=== PATIENT | female | born 1940 | race Caucasian/White ===

== ENCOUNTER → 2018-06-16 09:51 | Outpatient (CLI) | payer MEDICARE, SELFPAY ==
[2018-06-16 12:55] LABS: ALB/GLOB Ratio 1.3 RATIO (0.9-2.4); AST(SGOT) 26 U/L (15-37); Alanine Aminotransfer ALT/SGPT 37 U/L (13-56); Albumin, Serum 3.8 g/dL (3.2-5.0); Alkaline Phosphatase 86 U/L (45-117); Anion Gap 9 (5-15); BUN 13 mg/dL (7-18); BUN/Creat Ratio 14.2 RATIO (10-20); Calcium,Total 9.6 mg/dL (8.5-10.1); Chloride 97 mmol/L (98-107); Cholesterol 203 mg/dL (200); Creatinine, Serum 0.91 mg/dL (0.55-1.02); EST Glomerular Filtration Rate 63 mL/min (>60); Est Glom Filt Rate - Afr Amer 76 mL/min (>60); Glucose 137 mg/dL (74-106); High Density Lipoprotein 47 mg/dL; Protein, Total 6.8 g/dL (6.4-8.2); Sodium Level 137 mmol/L (136-145); Thyroid Stim Hormone (TSH) 1.74 uIU/mL (0.358-3.74); Triglycerides 212 mg/dL; Very Low Density Lipoprotein 42 mg/dL (5-40)
[2018-06-16 14:14] LABS: Microalbumin:Creatinine Ratio 6.8 mg/g CRE (<30 mg/g CRE)
== END ==
PROVIDERS: Family Provider Family Medicine; PCP Family Medicine; Visit Provider Family Medicine
DX: E11.22 Type 2 diabetes mellitus with diabetic chronic kidney disease (principal); N18.2 Chronic kidney disease, stage 2 (mild)
CPT/HCPCS: 36415; 80053; 80061; 82043; 82570; 84443

== ENCOUNTER → 2018-09-18 07:41 | Outpatient (CLI) | payer MEDICARE, SELFPAY ==
[2018-09-18 10:15] LABS: Erythrocyte Sedimentation Rate 8 mm/hr (0-30)
[2018-09-18 10:18] LABS: Absolute Lymphocyte Count 2.06 X10^3/ul (0.83-4.51); Absolute Neutrophil Count 5.4 X10^3/uL (2.0-7.7); Basophil# 0.03 X10^3/uL; Basophil% 0.4 % (0-1); Eosinophils% 2.5 % (0-5); Hematocrit 43.1 % (37-47); Hemoglobin 13.9 g/dl (12.0-15.0); Lymphocyte # 2.06 X10^3/ul (4.0); Lymphocyte % 25.3 % (19-41); Mean Corp Hgb Conc 32.3 g/gl (32-36); Mean Corpuscular Hgb 29.6 pg (27.0-32.0); Mean Corpuscular Volume 91.7 fL (81-99); Mean Platelet Vol. 11.5 fl (6.2-12.0); Monocyte# 0.45 X10^3/uL; Monocyte% 5.5 % (0-10); Neutrophil # 5.36 X10^3/uL (2.7-7.7); Neutrophil % 65.8 % (47-70); POSITIVE COUNT NO; POSITIVE DIFFERENTIAL NO; POSITIVE MORPHOLOGY NO; Platelet Count 197 K/mm3 (150-450); RBC Distribution Width SD 46.8 fl (35.1-43.9); White Blood Count 8.1 K/mm3 (4.4-11.0)
[2018-09-18 10:43] LABS: Vitamin D,25 Hydroxy 35.1 ng/mL (29.95-100.01)
[2018-09-18 10:46] LABS: PTHIN 37.2 pg/mL (18.4-80.1)
[2018-09-18 11:22] LABS: AST(SGOT) 23 U/L (15-37); Alanine Aminotransfer ALT/SGPT 34 U/L (13-56); Albumin, Serum 3.6 g/dL (3.2-5.0); Alkaline Phosphatase 76 U/L (45-117); Anion Gap 11 (5-15); BUN 14 mg/dL (7-18); BUN/Creat Ratio 15.1 RATIO (10-20); Calcium,Total 9.1 mg/dL (8.5-10.1); Chloride 99 mmol/L (98-107); Creatinine, Serum 0.93 mg/dL (0.55-1.02); EST Glomerular Filtration Rate 62 mL/min (>60); Est Glom Filt Rate - Afr Amer 75 mL/min (>60); Ferritin 34 ng/mL (8-252); Globulin 3.7 g/dL (2.2-4.2); Glucose 158 mg/dL (74-106); Potassium 3.9 mmol/L (3.5-5.1); Protein, Total 7.3 g/dL (6.4-8.2); Sodium Level 139 mmol/L (136-145); Thyroid Stim Hormone (TSH) 3.04 uIU/mL (0.358-3.74)
[2018-09-21 09:06] LABS: Vitamin B12 1996 pg/mL (211-911)
[2018-09-21 14:18] LABS: ANTINUCLEAR ANTIBODIES DIRECT Negative (Negative)
== END ==
PROVIDERS: Family Provider Family Medicine; PCP Family Medicine; Referring Provider Family Medicine; Visit Provider Family Medicine
DX: M79.10 Myalgia, unspecified site (principal)
CPT/HCPCS: 36415; 80053; 82306; 82607; 82728; 82746; 83970; 84443; 85025; 85652; 86038; 86140

== ENCOUNTER → 2018-10-01 10:08 | Outpatient (CLI) | payer MEDICARE, SELFPAY ==
[2016-09-28 13:27] VITALS: BMI 48.4
--- NOTE | 2018-10-01 10:14 | BI_ITS ---
MAMMOGRAPHY - BILATERAL SCREENING REASON FOR EXAM: Female, 78 years old. Routine annual screening examination. PERTINENT HISTORY: Non-contributory. TECHNIQUE: Digital bilateral breast khalida (3D mammographic acquisition) in the CC and MLO projections. 2-D mediolateral oblique (MLO) and craniocaudad (CC) views of both breasts were obtained. CAD: Full Field Digital Mammography with Computer Added Detection was performed. COMPARISON: Comparison is made with prior study dated October 13, 2008. FINDINGS: Breast Composition: The breasts are almost entirely fatty. There are no dominant masses or suspicious calcifications. Stable benign-appearing right axillary lymph node. No other significant abnormalities are identified. There has been no significant change since the prior study. BI/SCREENING MAMM (CAD), BILAT IMPRESSION: Stable bilateral screening mammogram. Yearly follow-up mammogram recommended. (A) ASSESSMENT CATEGORY: BIRADS Category 2: Benign. A letter regarding these results will be sent to the patient by the facility within 30 days. Approximately 10% of breast cancers are not detected by mammography. A normal mammogram should not delay biopsy of a clinically suspicious abnormality. [id number] Electronically Signed: Jc Koehler MD at 12:33 EST , Service support ,
== END ==
PROVIDERS: Family Provider Family Medicine; PCP Family Medicine; Referring Provider Family Medicine; Visit Provider Family Medicine
DX: Z12.31 Encounter for screening mammogram for malignant neoplasm of breast (principal)
CPT/HCPCS: 77063; 77067

== ENCOUNTER → 2019-03-17 09:44 | Outpatient (CLI) | payer MEDICARE, SELFPAY ==
[2016-09-28 13:27] VITALS: BMI 48.4
[2019-03-17 12:57] LABS: ALB/GLOB Ratio 1.2 RATIO (0.9-2.4); AST(SGOT) 30 U/L (15-37); Alanine Aminotransfer ALT/SGPT 33 U/L (13-56); Albumin, Serum 4.1 g/dL (3.2-5.0); Alkaline Phosphatase 76 U/L (45-117); Anion Gap 7 (5-15); BUN 16 mg/dL (7-18); BUN/Creat Ratio 16.1 RATIO (10-20); Calcium,Total 9.9 mg/dL (8.5-10.1); Chloride 99 mmol/L (98-107); EST Glomerular Filtration Rate 57 mL/min (>60); Est Glom Filt Rate - Afr Amer 69 mL/min (>60); Globulin 3.4 g/dL (2.2-4.2); Glucose 139 mg/dL (74-106); Protein, Total 7.5 g/dL (6.4-8.2); Sodium Level 135 mmol/L (136-145)
[2019-03-17 13:06] LABS: Vitamin B12 > 2000 pg/mL (211-911)
== END ==
PROVIDERS: Family Provider Family Medicine; PCP Family Medicine; Referring Provider Family Medicine; Visit Provider Nurse Practitioner Family
DX: I10 Essential (primary) hypertension (principal); R74.8 Abnormal levels of other serum enzymes; E55.9 Vitamin D deficiency, unspecified
CPT/HCPCS: 36415; 80053; 82607; 82652

== ENCOUNTER → 2019-07-12 11:35 | Outpatient (CLI) | payer MEDICARE, SELFPAY ==
[2016-09-28 13:27] VITALS: BMI 48.4
--- NOTE | 2019-07-12 11:41 | RAD_ITS ---
STUDY: X-RAY - LUMBAR SPINE REASON FOR EXAM: Female, 78 years old. Pain. TECHNIQUE: 5 view(s) of the lumbar spine were obtained. COMPARISON: None FINDINGS: Normal lumbar lordosis. There is no substantial scoliosis. There is diffuse demineralization with multi-level endplate spondylosis. There is multi-level degenerative disc disease with multi-level disc space narrowing. There is no demonstrated fracture. There is sacroiliac sclerosis. There is atherosclerotic calcification of the abdominal aorta without a demonstrated aneurysm. RAD/L/S Spine Min 4 Views IMPRESSION: Degenerative changes of the spine, as detailed above. Electronically Signed: Deon Vargas MD at 9:43 EST , Service support ,
== END ==
PROVIDERS: Family Provider Family Medicine; PCP Family Medicine; Referring Provider Family Medicine; Visit Provider Family Medicine
DX: M54.5 Low back pain (principal)
CPT/HCPCS: 72110

== ENCOUNTER → 2019-09-17 09:13 | Outpatient (CLI) | payer MEDICARE, SELFPAY ==
[2016-09-28 13:27] VITALS: BMI 48.4
[2019-09-17 12:42] LABS: Absolute Lymphocyte Count 1.48 X10^3/uL (0.83-4.51); Absolute Neutrophil Count 8.3 X10^3/uL (2.0-7.7); Basophil# 0.02 X10^3/uL; Basophil% 0.2 % (0-1); Eosinophil# 0.15 X10^3/uL; Eosinophils% 1.4 % (0-5); Hematocrit 40.4 % (37-47); Hemoglobin 13.4 g/dL (12.0-15.0); Lymphocyte # 1.48 X10^3/ul (4.0); Mean Corp Hgb Conc 33.2 g/dL (32-36); Mean Corpuscular Hgb 29.7 pg (27.0-32.0); Mean Corpuscular Volume 89.6 fL (81-99); Mean Platelet Vol. 9.9 fl (6.2-12.0); Monocyte# 0.59 X10^3/uL; Monocyte% 5.6 % (0-10); NRBC Flagged by Analyzer 0 % (0-5); Neutrophil # 8.27 X10^3/uL (2.7-7.7); Neutrophil % 78.3 % (47-70); Platelet Count 229 K/mm3 (150-450); RBC Distribution Width CV 13.3 % (11.6-14.6); RBC Distribution Width SD 43.7 fl (35.1-43.9); Red Blood Count 4.51 M/mm3 (4.2-5.4); White Blood Count 10.6 K/mm3 (4.4-11.0)
[2019-09-17 13:10] LABS: AST(SGOT) 29 U/L (15-37); Alanine Aminotransfer ALT/SGPT 56 U/L (13-56); Albumin, Serum 3.4 g/dL (3.2-5.0); Alkaline Phosphatase 103 U/L (45-117); Anion Gap 6 (5-15); BUN 13 mg/dL (7-18); BUN/Creat Ratio 16.3 RATIO (10-20); Calcium,Total 9.8 mg/dL (8.5-10.1); Chloride 96 mmol/L (98-107); EST Glomerular Filtration Rate 74 mL/min (>60); Est Glom Filt Rate - Afr Amer 89 mL/min (>60); Globulin 3.3 g/dL (2.2-4.2); Glucose 120 mg/dL (74-106); Potassium 3.8 mmol/L (3.5-5.1); Protein, Total 6.7 g/dL (6.4-8.2); Sodium Level 132 mmol/L (136-145); Thyroid Stim Hormone (TSH) 2.14 uIU/mL (0.358-3.74)
== END ==
PROVIDERS: PCP Family Medicine; Referring Provider Family Medicine; Visit Provider Family Medicine
DX: E11.22 Type 2 diabetes mellitus with diabetic chronic kidney disease (principal); N18.9 Chronic kidney disease, unspecified; M54.5 Low back pain
CPT/HCPCS: 80053; 84443; 85025

== ENCOUNTER → 2019-10-06 16:07 | Outpatient (CLI) | payer MEDICARE, SELFPAY ==
--- NOTE | 2019-10-06 16:10 | MRI_ITS ---
ACR Level 3 findings have been noted. An addendum which confirms receipt of the report will follow. STUDY: MRI LUMBAR SPINE WITHOUT CONTRAST REASON FOR EXAM: Female, 79 years old. pain low back and bilat legs, RECENT FALLS TECHNIQUE: Standardized fat and water weighted pulse sequences were obtained in the sagittal and axial planes. COMPARISON: X-ray dated July 12, 2019 FINDINGS: Lumbar lordosis fairly well maintained. No significant scoliosis. Conus medullaris terminates normally at the L1 level. Severe endplate spondylosis predominating at the L3-4 and L4-5 levels with fluid signal at the L4-5 disc space (sagittal image 7 series 4). Vertebral body height loss at the L3, L4 and L5 levels. Additional mild/moderate multilevel endplate spondylosis. No dislocation. Paraspinal muscle atrophy. Normal aorta. Sacrum intact. Normal retroperitoneum. T12-L1: Shallow disc bulge. Facet joint arthrosis. Normal central canal and bilateral lateral recesses. Normal bilateral intervertebral neural foramina. L1-2: Shallow disc bulge. Facet joint arthrosis. Normal central canal and bilateral lateral recesses. Neural foraminal narrowing without impingement. L2-3: Disc bulge with severe central canal narrowing. Facet joint arthrosis. Bilateral lateral recess narrowing with impingement. Bilateral neural foraminal narrowing with impingement. L3-4: Disc bulge with severe central canal narrowing. Facet joint arthrosis. Bilateral lateral recess narrowing with impingement. Bilateral neural foraminal narrowing with impingement, right greater than left. L4-5: Disc bulge with moderate/severe central canal narrowing. Facet joint arthrosis. Bilateral lateral recess narrowing with impingement. Neural foraminal narrowing with contact of the exiting L4 nerve roots, left greater than right. L5-S1: Shallow disc bulge. Facet joint arthrosis. Normal central canal and bilateral lateral recesses. Neural foraminal narrowing with early contact of the exiting L5 nerve roots. MRI/Spine Lumbar (Routine) IMPRESSION: Age-indeterminate vertebral body height loss at the L3-L5 levels with marrow signal at the L3 inferior endplate, L4 vertebral body and L5 superior endplate compression (potential acute/subacute fractures given clinical history) Severe endplate spondylosis predominating at the L2-3, L3-4 and L4-5 levels with fluid at the L4-5 disc space (exclude infection clinically) Severe multilevel intervertebral disc disease with canal narrowing predominantly at L2-3, L3-4 and L4-5 Extensive multilevel neural foraminal and lateral recess narrowing with impingement, as above Electronically Signed: Yonis Vega DO at 13:57 EST Tel , Service support ,
== END ==
PROVIDERS: PCP Family Medicine; Referring Provider Anesthesiology Pain Medicine; Visit Provider Anesthesiology Pain Medicine
DX: M54.9 Dorsalgia, unspecified (principal); M79.605 Pain in left leg
CPT/HCPCS: 72148

== ENCOUNTER 2019-10-09 08:16 | Observation (INO) | payer MEDICARE, SELFPAY ==
[2019-10-09 08:19] VITALS: BP 186/59; PULSE 66; RESP 18; TEMP 36.4; O2SAT 98; BMI 48.5
--- NOTE | 2019-10-09 08:25 | ED.DCSUM_ITS ---
History of Present Illness Chief Complaint: Back Informant: Patient Onset: Days, Weeks Context: Gradual Onset Timing: Continuous Current Severity: Moderate Maximum Severity: Severe Narrative: The patient is an 79-year-old female medical history significant for kfa-utddtia-ckwlpilde diabetes that presents to the emergency department with back pain. Patient states been having pain since around . She describes it as a continuous ache in her low back. This month, she began to have more pain in her left leg. She has been seeing pain management and her [facility] care. She had outpatient MRI done 3 days ago. She was just recently started on tramadol. She states she feels like the pain is getting worse. She did have a fall in her house 3 days ago. She did not strike her head. She denies loss of consciousness. She states that the pain was very severe this morning and she was unable to get out of her chair because of the pain. She denies any difficulty urinating. She denies any difficulty moving her bowels. She denies any numbness in her groin. Prior similar symptoms: Yes Recent Illness/Hospitalization: No Past Medical History - Allergies and Home Meds Allergies/Adverse Reactions: Allergies Penicillins Allergy (Verified 10/09/19 08:17) Hives Primary Care Physician: Yonis Torres MD [Primary Care Provider] - Prior records reviewed: Yes Past Medical History: - - See-hfdrfwn-xfogmtlir diabetes Surgical History: noncontributory Smoking Status: Never smoker Review of Systems General: Denies: Chills, Fever, Sweats Eyes: Denies: Visual changes - bilaterally, Diplopia ENT: Denies: Rhinorrhea, Sore throat Cardiovascular: Denies: Chest pain, Palpitations Respiratory: Denies: Dyspnea, Cough, Dyspnea on exertion Gastrointestinal: Denies: Abdominal pain, Nausea, Vomiting, Diarrhea, Melena, Hematochezia Genitourinary: Denies: Dysuria, Hematuria, Frequency Musculoskeletal: Reports: Back pain. Denies: Extremity Pain Skin: Denies: Rash, Wounds Neurological: Reports: Weakness. Denies: Headache, Numbness Physical Exam Vital Signs/Narrative: Vital Signs Temp Pulse Resp BP Pulse Ox 10/09/19 08:19 97.6 F L 66 18 186/59 H 98 Inital Vital Signs reviewed: Yes General: Well nourished, Well developed, No Acute Distress Head: Normocephalic, Atraumatic Eyes: Perrl, EOMI ENT: Moist mucous membranes, No rhinorrhea Neck: Supple, Nontender Cardiovascular: Regular rate, Regular rhythm, No murmurs Respiratory: No distress, CTA bilaterally, Chest nontender Abdomen: Soft, Nontender, Nondistended, Normal bowel sounds Back: Normal Inspection. Negative for: Spinal tenderness Extremities: Nontender, No edema Skin: Normal color, No rash Neurological: Alert, Oriented x3, Cranial nerves II-XII grossly intact, Normal Strength, Normal Sensation Psychological: Normal affect, Normal Mood Diagnostic/Tx/Re-eval Abnormal Lab Results 10/09/19 10/09/19 10/09/19 08:40 08:54 08:54 WBC 11.4 H RBC 4.28 Hgb 12.8 Hct 37.3 MCV 87.1 MCH 29.9 MCHC 34.3 RDW Std Deviation 41.9 RDW Coeff of Lisa 13.3 Plt Count 288 MPV 9.2 Immature Gran % (Auto) 0.600 Neut % (Auto) 74.4 H Lymph % (Auto) 15.9 L [place] % (Auto) 7.1 Eos % (Auto) 1.6 Baso % (Auto) 0.4 Absolute Neuts (auto) 8.5 H Absolute Lymphs (auto) 1.81 Nucleated RBC % 0 Sodium 124 L Potassium 4.0 Chloride 88 L Carbon Dioxide 26.0 Anion Gap 10 BUN 17 Creatinine 0.82 Estim Creat Clear Calc 39.30 Est GFR (MDRD) Af Amer 87 Est GFR (MDRD) Non-Af 72 BUN/Creatinine Ratio 20.9 H Glucose 136 H Calcium 9.0 Total Bilirubin 0.60 AST 58 H ALT 50 Alkaline Phosphatase 96 Total Creatine Kinase 522 H Total Protein 6.8 Albumin 3.2 Globulin 3.6 Albumin/Globulin Ratio 0.9 Urine Color Yellow Urine Clarity Clear Urine pH 6.0 Ur Specific [place] 1.015 Urine Protein Negative Urine Glucose (UA) Normal Urine Ketones Negative Urine Occult Blood Negative Urine Nitrite Negative Urine Bilirubin Negative Urine Urobilinogen Normal Ur Leukocyte Esterase Negative Urine RBC 0-5 SEEN Urine WBC 0 SEEN Ur Squamous Epith Cells 0 SEEN Urine Bacteria 0 SEEN Urine Mucus 0 SEEN - Medical Decision Making The patient does not have weakness of her lower extremities. She has normal strength of dorsiflexion, plantar flexion, and extensor hallucis longus bilaterally. She does have radicular symptoms into the left leg, but her reflexes are preserved. Her sensation is intact. She has not had bowel or bladder incontinence. She has no perianal paresthesias or saddle anesthesias. The patient had a straight cath with less than 80 cc of urine without evidence of urinary retention. I did review her MRI which showed subacute compression fractures and foraminal narrowing. There was no evidence of acute cauda equina. She was given IV analgesics with some improvement. Screening labs do show a mild hyponatremia and hypochloremia. The patient is on a lisinopril hydrochlorothiazide combo. She is also had decreased oral intake because she has a difficult time getting up and getting around. At this point, given her significant pain and inability to safely ambulate, along with new hyponatremia, I do feel the patient would benefit from admission for acute pain control and likely physical therapy and rehab placement. The patient was discussed with the hospitalist. Impression 1. Intractable back pain 2. Hyponatremia ED Disposition - Plan for ED Patient: Referrals: Yonis Torres MD [Primary Care Provider] -
[2019-10-09 08:48] LABS: Bacteria 0 SEEN /hpf (None Seen); Mucous, Urine 0 SEEN /hpf (<or=2+); Squamous Epithelial Cells - UA 0 SEEN /hpf (5-10); White Blood Cells 0 SEEN /hpf (0-5)
[2019-10-09 08:49] LABS: Color, Urine Yellow (Yellow); Glucose, Dipstick Normal (Normal); Ketone-Dipstick Negative (Negative); Leukocyte Esterase-Dipstick Negative /ul (Negative); Nitrite-Dipstick Negative (Negative); Occult Blood-Urine Negative /ul (Negative); Protein-Dipstick Negative (Negative); Specific Gravity, Urine 1.015 (1.002-1.030); Urine Bilirubin Dipstick Negative (Negative); Urine Clarity Clear (Clear); Urine Urobilinogen Normal (Normal)
[2019-10-09 09:01] LABS: Red Blood Cells-Urine 0-5 SEEN /hpf (0-5)
[2019-10-09 09:07] LABS: Absolute Lymphocyte Count 1.81 X10^3/uL (0.83-4.51); Absolute Neutrophil Count 8.5 X10^3/uL (2.0-7.7); Basophil# 0.04 X10^3/uL; Basophil% 0.4 % (0-1); Eosinophil# 0.18 X10^3/uL; Eosinophils% 1.6 % (0-5); Hematocrit 37.3 % (37-47); Hemoglobin 12.8 g/dL (12.0-15.0); Lymphocyte # 1.81 X10^3/ul (4.0); Lymphocyte % 15.9 % (19-41); Mean Corp Hgb Conc 34.3 g/dL (32-36); Mean Corpuscular Hgb 29.9 pg (27.0-32.0); Mean Corpuscular Volume 87.1 fL (81-99); Mean Platelet Vol. 9.2 fl (6.2-12.0); Monocyte# 0.81 X10^3/uL; Monocyte% 7.1 % (0-10); NRBC Flagged by Analyzer 0 % (0-5); Neutrophil # 8.45 X10^3/uL (2.7-7.7); Neutrophil % 74.4 % (47-70); Platelet Count 288 K/mm3 (150-450); RBC Distribution Width CV 13.3 % (11.6-14.6); RBC Distribution Width SD 41.9 fl (35.1-43.9); Red Blood Count 4.28 M/mm3 (4.2-5.4); White Blood Count 11.4 K/mm3 (4.4-11.0)
[2019-10-09] MEDS: Morphine 4 MG/ML Syringe IV ×3 (09:28→16:09)
[2019-10-09] MEDS: Ondansetron 4 MG/2 ML Vial IV ×2 (09:28→18:02)
[2019-10-09 09:30] LABS: ALB/GLOB Ratio 0.9 RATIO (0.9-2.4); AST(SGOT) 58 U/L (15-37); Alanine Aminotransfer ALT/SGPT 50 U/L (13-56); Albumin, Serum 3.2 g/dL (3.2-5.0); Alkaline Phosphatase 96 U/L (45-117); Anion Gap 10 (5-15); BUN 17 mg/dL (7-18); BUN/Creat Ratio 20.9 RATIO (10-20); CPK Total, Creatine Kinase 522 U/L (26-192); Chloride 88 mmol/L (98-107); Creatinine, Serum 0.82 mg/dL (0.55-1.02); EST Glomerular Filtration Rate 72 mL/min (>60); Est Glom Filt Rate - Afr Amer 87 mL/min (>60); Globulin 3.6 g/dL (2.2-4.2); Glucose 136 mg/dL (74-106); Protein, Total 6.8 g/dL (6.4-8.2); Sodium Level 124 mmol/L (136-145)
[2019-10-09 09:39] VITALS: BP 173/61; PULSE 66; RESP 20; O2SAT 96
--- NOTE | 2019-10-09 10:04 | HP.PCM_ITS ---
Problem List (1) Back pain Status: Acute Qualifiers: Back pain location: low back pain (2) Essential (primary) hypertension Status: Chronic (3) DM2 (diabetes mellitus, type 2) Status: Chronic (4) Hyponatremia Status: Acute History of Present Illness Date of Admission: 10/09/19 Chief Complaint: Intractable back pain The patient is a 79 year old F with past medical history segment for hypertension, chronic back pain for which she has been followed by management Dr. Brown with intermittent epidural steroid injection to the back who presented with intractable back pain. Patient reports 3-day history of significant back pain limiting her mobility. In view of worsening condition in patient presented to the emergency department imaging studies obtained demonstrated age indeterminate vertebral body height loss from L3-L5 with extensive multilevel neural foraminal and lateral recess narrowing with impi ngement. Seen in the ED decision was made to admit patient to the hospital for inpatient control. Patient was also found to be hyponatremic prior to being admitted Past Medical History Past Medical History (Chronic Problems): Chronic Problems Essential (primary) hypertension (Chronic) DM2 (diabetes mellitus, type 2) (Chronic) Allergies Penicillins Allergy (Verified 10/09/19 08:17) Hives Home Medications: Ambulatory Orders Medication Instructions Recorded Amlodipine [Norvasc] 5 mg PO DAILY 10/09/19 Labetalol [Trandate] 100 mg PO BID 10/09/19 Lisinopril 30 mg PO DAILY 10/09/19 Lisinopril/Hydrochlorothiazide 1 ea PO DAILY 10/09/19 [Lisinopril-Hctz 20-25 mg Tab] Naproxen 500 mg PO BID 10/09/19 Oxycodone HCl/Acetaminophen 1 ea PO Q6H PRN PRN 10/09/19 [Oxycodon-Acetaminophen 2.5-325] Sennosides/Docusate Sodium 1 ea PO DAILY 10/09/19 [Docusate Sodium-Senna Tablet] Sitagliptin Phosphate [Januvia] 100 mg PO DAILY 10/09/19 traMADol [Ultram (G)] 50 mg PO TID 10/09/19 Surgical History: noncontributory Smoking Status: Never smoker - *Family History Paternal History Items: Heart Disease Review of Systems Constitutional: Reports: Weakness HEENT: Denies: Head Aches, Sinus Congestion, Sinus Drainage Cardiovascular: Reports: Edema. Denies: Chest Pain, Orthopnea, Palpitations, Paroxysmal Noc. Dyspnea Respiratory: Denies: Cough, Shortness of breath at rest, Shortness of breath upon exertion, Sputum production Gastrointestinal: Denies: Abdominal Pain, Hematemesis, Hematochezia, Nausea, Melena, Vomiting Genitourinary: Denies: Dysuria, Frequency, Hematuria, Urgency Musculoskeletal: Reports: Back Pain Skin: Denies: Rash Neurological: Denies: Focal weakness Psychiatric: Denies: Homicidal Ideations, Suicidal Ideations Hematologic/ Lymphatic: Denies: Easy Bruising, Easy Bleeding VTE Information - Inpt Only VTE Present on Admission: No VTE Mechan Device Prophylaxis: None VTE Pharm Prophylaxis ordered?: Yes Patient Problems: Active and Suspected Problems Back pain (Acute) Hyponatremia (Acute) Objective: GENERAL: Patient appears to be in some distress HEENT: Atraumatic; EYES; Anicteric, Normal Conjunctiva NECK; supple, normal thyroid, RESPIRATORY: Diminished to auscultation CARDIOVASCULAR: Regular S1 S2, GI: soft, normoactive bowel sounds, : No Renal angle tenderness; EXTREMITIES: Edema involving both lower extremities right greater than left MUSCULOSKELETAL: no muscle waisting NEURO: Awake; no lateralizing signs. SKIN: No Rash PSYCH; Flat affect - Physical Exam Vitals/I&O's: Vital Signs Temp Pulse Resp BP Pulse Ox 97.6 F L 66 20 H 173/61 H 96 10/09/19 08:19 10/09/19 09:39 10/09/19 09:39 10/09/19 09:39 10/09/19 09:39 Oxygen Delivery Method Room Air Weight: 112.7 kg Body Mass Index (BMI) 48.5 Intake and Output for Last 24 Hours 10/07/19 10/08/19 10/09/19 23:59 23:59 23:59 Intake Total 500 / 500 Balance 500 / 500 Laboratory Results 10/09/19 08:40: Urine Color Yellow, Urine Clarity Clear, Urine pH 6.0, Ur Specific [place] 1.015, Urine Protein Negative, Urine Glucose (UA) Normal, Urine Ketones Negative, Urine Occult Blood Negative, Urine Nitrite Negative, Urine Bilirubin Negative, Urine Urobilinogen Normal, Ur Leukocyte Esterase Negative, Urine RBC 0-5 SEEN, Urine WBC 0 SEEN, Ur Squamous Epith Cells 0 SEEN, Urine Bacteria 0 SEEN, Urine Mucus 0 SEEN 10/09/19 08:54: WBC 11.4 H, RBC 4.28, Hgb 12.8, Hct 37.3, MCV 87.1, MCH 29.9, MCHC 34.3, RDW Std Deviation 41.9, RDW Coeff of Lisa 13.3, Plt Count 288, MPV 9.2, Immature Gran % (Auto) 0.600, Neut % (Auto) 74.4 H, Lymph % (Auto) 15.9 L, [place] % (Auto) 7.1, Eos % (Auto) 1.6, Baso % (Auto) 0.4, Absolute Neuts (auto) 8.5 H, Absolute Lymphs (auto) 1.81, Nucleated RBC % 0 10/09/19 08:54: Sodium 124 L, Potassium 4.0, Chloride 88 L, Carbon Dioxide 26.0, Anion Gap 10, BUN 17, Creatinine 0.82, Estim Creat Clear Calc 39.30, Est GFR (MDRD) Af Amer 87, Est GFR (MDRD) Non-Af 72, BUN/Creatinine Ratio 20.9 H, Glucose 136 H, Calcium 9.0, Total Bilirubin 0.60, AST 58 H, ALT 50, Alkaline Phosphatase 96, Total Creatine Kinase 522 H, Total Protein 6.8, Albumin 3.2, Globulin 3.6, Albumin/Globulin Ratio 0.9 Current Medications Amlodipine Besylate (Norvasc) 5 mg PO DAILY HUSAM Labetalol HCl (Trandate) 100 mg PO BID HUSAM Naproxen (Naprosyn) 500 mg PO BID HUSAM Sitagliptin Phosphate (Januvia) 100 mg PO DAILY HUSAM Assessment/Plan All Active Problems Back pain (Acute) Hyponatremia (Acute) Patient is an 79-year-old lady presented with intractable back pain 1. Intractable back pain ?MRI obtained 2 days prior to patient's admission demonstrated multilevel degenerative joint disease as well as suspected compression fractures involving 3 to L5 vertebral bodies of undetermined age. Patient admitted to regular [facility] floor for pain management started on scheduled narcotics with PRN meds for breakthrough pain. Patient was also started on muscle relaxant. Patient is followed by Dr. Brown plan is to consult him if patient is here by 10/11/2019 2. Hyponatremia ?Patient is on HCTZ do suspect this to be the etiology the suspected offending medications held 3. Left lower extremity swelling This was noticed by patient's son after her recent fall. Ordered venous duplex to rule out DVT 4. Essential hypertension ?Patient is on HCTZ this was held in view of hyponatremia did continue with the lisinopril and amlodipine. 5. Diabetes mellitus type II With control blood glucose. Continue patient oral hypoglycemic agents in addition to Accu-Cheks a.c. and at bedtime and covered with sliding scale insuli n 6. Morbid obesity with BMI of 48 ?Weight loss advised 7. DVT prophylaxis ?Lovenox Code Visit OBSV E&M: [id number] Initial observation care L3
[2019-10-09 10:09] VITALS: BP 165/59; PULSE 68; RESP 16; O2SAT 97
[2019-10-09 10:46] VITALS: BMI 48.4
[2019-10-09 10:49] VITALS: BMI 48.4
--- NOTE | 2019-10-09 11:34 | VDLE_ITS ---
Reason For Study: PAIN RIGHT LEFT GSV is normal. GSV is normal. CFV is compressible, spontaneous, phasic, CFV is compressible, spontaneous, phasic, competent and demonstrates normal competent, and demonstrates normal augmentation. augmentation. FV is compressible, spontaneous, phasic, FV is compressible, spontaneous, phasic, competent and demonstrates normal competent and demonstrates normal augmentation. augmentation. POP V is compressible, spontaneous, phasic, POP V is compressible, spontaneous, phasic, competent and demonstrates normal competent and demonstrates normal augmentation. augmentation. T/P Trunk is compressible. T/P Trunk is compressible. PTV is compressible. PTV is compressible. RT PerV is compressible. LT PerV is compressible. Procedure Exam performed portable in patient room. Technically difficult due to body habitus. A preliminary report was called and/or faxed to [facility]. Interpretation Summary Deep veins of the lower extremities are bilaterally patent and compressible segmentally. There is no evidence of deep vein thrombosis on either side. Valvular competence appears intact within the proximal deep venous systems bilaterally. The great saphenous veins appear bilaterally patent and compressible segmentally. Ordering Physician: Bam Givens Referring Physician: SHANTHI ZIMMERMAN Performed By: Bianka Ribera RDCS, RVT
[2019-10-09 12:31] LABS: Bedside Glucose 135 mg/dL (70-110)
[2019-10-09 14:00] VITALS: BP 135/60; PULSE 76; RESP 18; TEMP 36.9; O2SAT 97
[2019-10-09] MEDS: Acetaminophen 325 MG Tablet 650 MG PO (14:18)
[2019-10-09] MEDS: Labetalol 100 MG Tablet PO ×2 (14:18→22:09)
[2019-10-09] MEDS: amLODIPine 5 MG Tablet PO (14:18)
[2019-10-09] MEDS: Enoxaparin 40 MG/0.4 ML Syringe SC (14:18)
[2019-10-09] MEDS: LINAGLIPTIN 5 MG TABLET PO (14:19)
[2019-10-09] MEDS: oxyCODONE 5 MG Tablet 10 MG PO ×2 (14:19→22:17)
[2019-10-09 15:20] VITALS: RESP 16; O2SAT 96
[2019-10-09] MEDS: 0.9% Saline Lock 10 ML Syringe IV (16:10)
[2019-10-09] MEDS: 0.9% Normal Saline 1,000 ML 125 ML IV (16:11)
[2019-10-09 17:15] LABS: Bedside Glucose 161 mg/dL (70-110)
[2019-10-09 20:00] VITALS: BP 144/57; PULSE 67; RESP 18; TEMP 37.1; O2SAT 97
[2019-10-09] MEDS: Glucerna Shake 120 ML LIQUID PO (22:08)
[2019-10-09] MEDS: MELATONIN 3 MG TABLET PO (22:09)
[2019-10-09 22:16] LABS: Bedside Glucose 126 mg/dL (70-110)
[2019-10-10] MEDS: 0.9% Normal Saline 1,000 ML 125 ML IV ×3 (00:23→16:42)
[2019-10-10 02:20] VITALS: BP 147/58; PULSE 67; RESP 18; TEMP 36.7; O2SAT 95
[2019-10-10] MEDS: BENZOCAINE/MENTHOL 1 LOZENGE MUCOUS MEM (04:08)
[2019-10-10] MEDS: Morphine 4 MG/ML Syringe IV ×4 (04:18→16:52)
[2019-10-10 07:00] LABS: Bedside Glucose 122 mg/dL (70-110)
[2019-10-10 07:36] VITALS: O2SAT 97
[2019-10-10 07:47] LABS: Absolute Lymphocyte Count 1.78 X10^3/uL (0.83-4.51); Absolute Neutrophil Count 9.7 X10^3/uL (2.0-7.7); Basophil# 0.04 X10^3/uL; Basophil% 0.3 % (0-1); Eosinophils% 1.6 % (0-5); Hemoglobin 11.9 g/dL (12.0-15.0); Lymphocyte # 1.78 X10^3/ul (4.0); Lymphocyte % 14.2 % (19-41); Mean Corpuscular Hgb 30.1 pg (27.0-32.0); Mean Corpuscular Volume 88.4 fL (81-99); Mean Platelet Vol. 9.4 fl (6.2-12.0); Monocyte# 0.81 X10^3/uL; Monocyte% 6.4 % (0-10); NRBC Flagged by Analyzer 0 % (0-5); Neutrophil # 9.66 X10^3/uL (2.7-7.7); Neutrophil % 76.9 % (47-70); Platelet Count 266 K/mm3 (150-450); RBC Distribution Width CV 13.2 % (11.6-14.6); RBC Distribution Width SD 43.1 fl (35.1-43.9); Red Blood Count 3.96 M/mm3 (4.2-5.4); White Blood Count 12.6 K/mm3 (4.4-11.0)
[2019-10-10 08:09] LABS: Anion Gap 6 (5-15); BUN 15 mg/dL (7-18); BUN/Creat Ratio 21.7 RATIO (10-20); Calcium,Total 8.5 mg/dL (8.5-10.1); Chloride 91 mmol/L (98-107); Creatinine, Serum 0.69 mg/dL (0.55-1.02); EST Glomerular Filtration Rate 87 mL/min (>60); Est Glom Filt Rate - Afr Amer 105 mL/min (>60); Estimated Creatinine Clearance 32.23 ml/min; Glucose 130 mg/dL (74-106); Potassium 3.7 mmol/L (3.5-5.1); Sodium Level 126 mmol/L (136-145)
[2019-10-10] MEDS: 0.9% Saline Lock 10 ML Syringe IV ×4 (08:23→16:52)
[2019-10-10] MEDS: LINAGLIPTIN 5 MG TABLET PO (08:27)
[2019-10-10] MEDS: Enoxaparin 40 MG/0.4 ML Syringe SC (08:27)
[2019-10-10] MEDS: amLODIPine 5 MG Tablet PO (08:27)
[2019-10-10] MEDS: Labetalol 100 MG Tablet PO ×2 (08:28→22:18)
[2019-10-10] MEDS: Naproxen 500 MG Tablet PO ×2 (08:28→16:47)
[2019-10-10] MEDS: cycloBENZAPRine HCl 10 MG Tablet PO ×2 (08:33→22:25)
[2019-10-10] MEDS: Glucerna Shake 120 ML LIQUID PO ×4 (08:33→22:27)
[2019-10-10 08:37] VITALS: BP 159/109; PULSE 69; RESP 18; TEMP 36.6; O2SAT 95
--- NOTE | 2019-10-10 09:03 | PCM.PN.HOSP ---
Patient Problems: Active and Suspected Problems Back pain (Acute) Hyponatremia (Acute) Reason for Visit: Low up acute back pain Subjective: Patient is an 79-year-old lady presented with intractable back pain Admitted to regular nursing floor for pain management Objective: GENERAL: Patient appears to be in some distress HEENT: Atraumatic; EYES; Anicteric, Normal Conjunctiva NECK; supple, normal thyroid, RESPIRATORY: Diminished to auscultation CARDIOVASCULAR: Regular S1 S2, GI: soft, normoactive bowel sounds, : No Renal angle tenderness; EXTREMITIES: Edema involving both lower extremities MUSCULOSKELETAL: no muscle waisting NEURO: Awake; no lateralizing signs. SKIN: No Rash PSYCH; Flat affect Vitals/I&O's: Vital Signs Temp Pulse Resp BP Pulse Ox 97.9 F 69 18 159/109 H 95 10/10/19 08:37 10/10/19 08:37 10/10/19 08:37 10/10/19 08:37 10/10/19 08:37 Oxygen Delivery Method Room Air Weight: 112.5 kg Body Mass Index (BMI) 48.4 Intake and Output for Last 24 Hours 10/08/19 10/09/19 10/10/19 23:59 23:59 23:59 Intake Total 1000 / 1000 2000 / 2000 Output Total 450 / 950 500 / 500 Balance 550 / 50 1500 / 1500 Laboratory Results 10/09/19 08:54: WBC 11.4 H, RBC 4.28, Hgb 12.8, Hct 37.3, MCV 87.1, MCH 29.9, MCHC 34.3, RDW Std Deviation 41.9, RDW Coeff of Lisa 13.3, Plt Count 288, MPV 9.2, Immature Gran % (Auto) 0.600, Neut % (Auto) 74.4 H, Lymph % (Auto) 15.9 L, [place] % (Auto) 7.1, Eos % (Auto) 1.6, Baso % (Auto) 0.4, Absolute Neuts (auto) 8.5 H, Absolute Lymphs (auto) 1.81, Nucleated RBC % 0 10/09/19 08:54: Sodium 124 L, Potassium 4.0, Chloride 88 L, Carbon Dioxide 26.0, Anion Gap 10, BUN 17, Creatinine 0.82, Estim Creat Clear Calc 39.30, Est GFR (MDRD) Af Amer 87, Est GFR (MDRD) Non-Af 72, BUN/Creatinine Ratio 20.9 H, Glucose 136 H, Calcium 9.0, Total Bilirubin 0.60, AST 58 H, ALT 50, Alkaline Phosphatase 96, Total Creatine Kinase 522 H, Total Protein 6.8, Albumin 3.2, Globulin 3.6, Albumin/Globulin Ratio 0.9 10/09/19 12:27: POC Glucose 135 H 10/09/19 16:13: POC Glucose 161 H 10/09/19 22:06: POC Glucose 126 H 10/10/19 06:43: POC Glucose 122 H 10/10/19 07:09: WBC 12.6 H, RBC 3.96 L, Hgb 11.9 L, Hct 35.0 L, MCV 88.4, MCH 30.1, MCHC 34.0, RDW Std Deviation 43.1, RDW Coeff of Lisa 13.2, Plt Count 266, MPV 9.4, Immature Gran % (Auto) 0.600, Neut % (Auto) 76.9 H, Lymph % (Auto) 14.2 L, [place] % (Auto) 6.4, Eos % (Auto) 1.6, Baso % (Auto) 0.3, Absolute Neuts (auto) 9.7 H, Absolute Lymphs (auto) 1.78, Nucleated RBC % 0 10/10/19 07:09: Sodium 126 L, Potassium 3.7, Chloride 91 L, Carbon Dioxide 29.0, Anion Gap 6, BUN 15, Creatinine 0.69, Estim Creat Clear Calc 32.23, Est GFR (MDRD) Af Amer 105, Est GFR (MDRD) Non-Af 87, BUN/Creatinine Ratio 21.7 H, Glucose 130 H, Calcium 8.5 Current Medications Acetaminophen (Tylenol) 650 mg PO Q6H PRN PRN PRN Reason: Pain Score 1-10/Temp > 100.7 F Last Admin: 10/09/19 14:18 Dose: 650 mg Documented by: Al Hydroxide/Mg Hydroxide (Mylanta Ii) 30 ml PO Q6H PRN PRN PRN Reason: Gastric Burning Albuterol Sulfate (Ventolin Aerosols) 2.5 mg INHALATION Q2H PRN PRN PRN Reason: Shortness of Breath/Wheezing Amlodipine Besylate (Norvasc) 5 mg PO DAILY [facility] Last Admin: 10/10/19 08:27 Dose: 5 mg Documented by: Cyclobenzaprine HCl (Flexeril) 10 mg PO TID PRN PRN PRN Reason: MUSCLE SPASM Last Admin: 10/10/19 08:33 Dose: 10 mg Documented by: Enoxaparin Sodium (Lovenox) 40 mg SC DAILY [facility] Last Admin: 10/10/19 08:27 Dose: 40 mg Documented by: Glucagon () 1 mg IM .X1 PRN PRN Reason: Hypoglycemia Sodium Chloride () 1,000 mls @ 125 mls/hr IV .Q8H [facility] Last Admin: 10/10/19 08:26 Dose: 125 mls/hr Documented by: Dextrose (Dextrose 10%-Water) 250 mls @ 999 mls/hr IV .Q16M PRN; Protocol PRN Reason: HYPOGLYCEMIA Sodium Chloride () 250 mls @ 15 mls/hr IV .[id number] PRN PRN Reason: Saline Flush Sodium Chloride () 250 mls @ 15 mls/hr IV .[id number] PRN PRN Reason: Additional IVPB Infusion Insulin Human Lispro (Humalog Kwikpen (Bkc)) 0 unit SC ACHS [facility]; Protocol Last Admin: 10/10/19 07:21 Dose: Not Given Documented by: Labetalol HCl (Trandate) 100 mg PO BID [facility] Last Admin: 10/10/19 08:28 Dose: 100 mg Documented by: Linagliptin (Tradjenta) 5 mg PO DAILY [facility] Last Admin: 10/10/19 08:27 Dose: 5 mg Documented by: Magnesium Hydroxide (Milk Of Magnesia) 30 ml PO DAILY PRN PRN PRN Reason: Constipation Melatonin (Melatonin) 3 mg PO QHS PRN PRN PRN Reason: INSOMNIA Last Admin: 10/09/19 22:09 Dose: 3 mg Documented by: Morphine Sulfate () 4 mg IV Q3H PRN PRN PRN Reason: Pain Score 6-10/10 Last Admin: 10/10/19 08:23 Dose: 4 mg Documented by: [facility] Last Admin: 10/10/19 08:28 Dose: 500 mg Documented by: Nitroglycerin (Nitrostat) 0.4 mg SUBLINGUAL Q5M PRN PRN Reason: CARDIAC/CHEST PAIN Nutritional Formula (Lactose Free) (Glucerna Shake) 120 ml PO 4X/DAY [facility] Last Admin: 10/10/19 08:33 Dose: 120 ml Documented by: Ondansetron HCl (Zofran) 4 mg IV Q8H PRN PRN PRN Reason: NAUSEA/VOMITING Last Admin: 10/09/19 18:02 Dose: 4 mg Documented by: Oxycodone HCl (Oxyir) 10 mg PO Q4H PRN PRN PRN Reason: Pain Score 4-5/10 Last Admin: 10/09/19 22:17 Dose: 10 mg Documented by: Sodium Chloride () 10 - 40 ml IV UD PRN PRN Reason: SALINE FLUSH Last Admin: 10/10/19 08:23 Dose: 10 ml Documented by: Sodium Chloride ([place] Nasal [place]) 2 spray NASAL TID PRN PRN PRN Reason: NASAL DRYNESS Throat Lozenges (Cepacol Sore Throat Lozenge) 1 lozenge MUCOUS MEM Q2H PRN PRN PRN Reason: SORE THROAT Last Admin: 10/10/19 04:08 Dose: 1 lozenge Documented by: STROKE Vital Signs/Narrative: Vital Signs Temp Pulse Resp BP Pulse Ox 10/10/19 08:37 97.9 F 69 18 159/109 H 95 10/10/19 07:36 97 Medical Necessity - Tobacco Use Smoking Status: Never smoker Assessment/Plan All Active Problems Back pain (Acute) Hyponatremia (Acute) Patient is an 79-year-old lady presented with intractable back pain 1. Intractable back pain ?MRI obtained 2 days prior to patient's admission demonstrated multilevel degenerative joint disease as well as suspected compression fractures involving L3 to L5 vertebral bodies of undetermined age. Patient admitted to regular nursing floor for pain management started on scheduled narcotics with PRN meds for breakthrough pain. Patient was also started on muscle relaxant. Patient is followed by Dr. Brown plan is to consult him if patient is here by 10/11/2019 - 10/10/2019: Patient seen still complains of severe intractable back pain. Reports no improvement following admission. Added steroids, pain regimen changed from PRN to scheduled pain meds and consultation placed to Dr. Brown. 2. Hyponatremia ?Patient is on HCTZ do suspect this to be the etiology the suspected offending medications held 3. Left lower extremity swelling This was noticed by patient's son after her recent fall. Ordered venous duplex to rule out DVT -10/10/2019 venous duplex came back negative for DVT. 4. Essential hypertension ?Patient is on HCTZ this was held in view of hyponatremia did continue with the lisinopril and amlodipine. 5. Diabetes mellitus type II With control blood glucose. Continue patient oral hypoglycemic agents in addition to Accu-Cheks a.c. and at bedtime and covered with sliding scale insulin 6. Morbid obesity with BMI of 48 ?Weight loss advised 7. DVT prophylaxis ?Lovenox Code Visit OBSV E&M: 25996 Observ/hosp same date L3
--- NOTE | 2019-10-10 10:03 | NURSING ---
page out for dr ceballos
[2019-10-10] MEDS: Sodium Chloride 0.65% 1 SPRAY SPRAY.BTL 2 SPRAY NASAL ×2 (10:12→16:55)
[2019-10-10] MEDS: oxyCODONE HCl Cr 10 MG Tablet PO ×2 (10:12→22:25)
[2019-10-10 14:00] VITALS: BP 152/57; PULSE 73; RESP 18; TEMP 36.8; O2SAT 94
[2019-10-10] MEDS: Insulin Lispro 100 UNIT/ML INSULN.PEN SC (16:51)
[2019-10-10 17:31] LABS: Bedside Glucose 167 mg/dL (70-110)
[2019-10-10 20:00] VITALS: PULSE 87; RESP 16
[2019-10-10 20:30] VITALS: BP 136/61; PULSE 82; RESP 16; TEMP 37.5; O2SAT 93
[2019-10-10] MEDS: MELATONIN 3 MG TABLET PO (22:20)
[2019-10-10 22:36] LABS: Bedside Glucose 281 mg/dL (70-110)
[2019-10-11] VITALS (9 sets, daily range): BP systolic 133–182; BP diastolic 53–71; PULSE 67–77; RESP 16–20; TEMP 36.4–36.9; O2SAT 95–100
[2019-10-11 00:06] LABS: Bedside Glucose 138 mg/dL (70-110)
[2019-10-11] MEDS: 0.9% Normal Saline 1,000 ML 125 ML IV ×2 (00:35→08:41)
[2019-10-11] MEDS: Sodium Chloride 0.65% 1 SPRAY SPRAY.BTL 2 SPRAY NASAL ×2 (06:32→22:23)
[2019-10-11 06:36] LABS: Absolute Lymphocyte Count 0.82 X10^3/uL (0.83-4.51); Basophil# 0.03 X10^3/uL; Basophil% 0.1 % (0-1); Eosinophil# 0.01 X10^3/uL; Hemoglobin 11.8 g/dL (12.0-15.0); Lymphocyte # 0.82 X10^3/ul (4.0); Lymphocyte % 3.5 % (19-41); Mean Corp Hgb Conc 33.7 g/dL (32-36); Mean Corpuscular Hgb 30.1 pg (27.0-32.0); Mean Corpuscular Volume 89.3 fL (81-99); Mean Platelet Vol. 9.3 fl (6.2-12.0); Monocyte# 0.43 X10^3/uL; Monocyte% 1.8 % (0-10); NRBC Flagged by Analyzer 0 % (0-5); Neutrophil # 21.97 X10^3/uL (2.7-7.7); Neutrophil % 93.7 % (47-70); POSITIVE DIFFERENTIAL YES; Platelet Count 273 K/mm3 (150-450); RBC Distribution Width CV 13.5 % (11.6-14.6); RBC Distribution Width SD 43.8 fl (35.1-43.9); Red Blood Count 3.92 M/mm3 (4.2-5.4); White Blood Count 23.5 K/mm3 (4.4-11.0)
[2019-10-11] MEDS: oxyCODONE 5 MG Tablet 10 MG PO (06:36)
[2019-10-11] MEDS: cycloBENZAPRine HCl 10 MG Tablet PO (06:37)
[2019-10-11 06:41] LABS: Anion Gap 6 (5-15); BUN 17 mg/dL (7-18); BUN/Creat Ratio 21.4 RATIO (10-20); Calcium,Total 8.9 mg/dL (8.5-10.1); Chloride 99 mmol/L (98-107); EST Glomerular Filtration Rate 74 mL/min (>60); Est Glom Filt Rate - Afr Amer 89 mL/min (>60); Estimated Creatinine Clearance 40.29 ml/min; Glucose 245 mg/dL (74-106); Potassium 4.7 mmol/L (3.5-5.1); Sodium Level 132 mmol/L (136-145)
[2019-10-11 07:07] LABS: Differential Indicated SCAN CRITERIA MET
[2019-10-11 07:50] LABS: Bedside Glucose 239 mg/dL (70-110)
--- NOTE | 2019-10-11 08:19 | PCM.PN.HOSP ---
Patient Problems: Active and Suspected Problems Back pain (Acute) Hyponatremia (Acute) Reason for Visit: Follow-up on acute on chronic back pain Subjective: Patient was seen and examined. She admits that her back pain is better. She is yet to be seen by pain management. Admits to tingling and numbness in the legs but denied incontinence of urine or stool. No fever or chills. Objective: Physical exam: Vitals/I&O's: Vital Signs Temp Pulse Resp BP Pulse Ox 98.4 F 73 20 H 133/56 H 95 10/11/19 02:30 10/11/19 02:30 10/11/19 02:30 10/11/19 02:30 10/11/19 02:30 Oxygen Delivery Method Room Air Weight: 112.5 kg Body Mass Index (BMI) 48.4 Intake and Output for Last 24 Hours 10/09/19 10/10/19 10/11/19 23:59 23:59 23:59 Intake Total 1000 / 1000 3910 / 3910 935.42 / 935.42 Output Total 450 / 950 1300 / 2250 950 / 950 Balance 550 / 50 2610 / 1660 -14.58 / -14.58 General: Alert, Oriented x3, Cooperative, No apparent distress HEENT: Atraumatic, PERRLA, EOMI, Normocephalic Oral: Moist Mucosa Neck: Supple Lungs: Clear to auscultation, Normal air movement Cardiovascular: Regular rate, Regular Rhythm, Normal S1, Normal S2, No murmurs Abdomen: Bowel Sounds Present, Soft, Non Tender, Non-Distended, No Hepato-splenomegaly Extremities: No edema Skin: No rashes Musculoskeletal: No Tenderness to Palpation of Joints or Extremities Lymphatic: No Cervical, Supraclavicular, or Inguinal Adenopathy Neurological: Cranial nerves II-XII grossly intact, Neuro grossly intact Psych/Mental Status: Normal Affect, Appropriate Laboratory Results 10/10/19 11:04: POC Glucose 138 H 10/10/19 16:46: POC Glucose 167 H 10/10/19 22:12: POC Glucose 281 H 10/11/19 06:02: WBC 23.5 H, RBC 3.92 L, Hgb 11.8 L, Hct 35.0 L, MCV 89.3, MCH 30.1, MCHC 33.7, RDW Std Deviation 43.8, RDW Coeff of Lisa 13.5, Plt Count 273, MPV 9.3, Immature Gran % (Auto) 0.900, Neut % (Auto) 93.7 H, Lymph % (Auto) 3.5 L, Rains % (Auto) 1.8, Eos % (Auto) 0.0, Baso % (Auto) 0.1, Absolute Neuts (auto) 22.0 H, Absolute Lymphs (auto) 0.82 L, Nucleated RBC % 0, Differential Comment COMMENT 10/11/19 06:02: Sodium 132 L, Potassium 4.7, Chloride 99, Carbon Dioxide 27.0, Anion Gap 6, BUN 17, Creatinine 0.80, Estim Creat Clear Calc 40.29, Est GFR (MDRD) Af Amer 89, Est GFR (MDRD) Non-Af 74, BUN/Creatinine Ratio 21.4 H, Glucose 245 H, Calcium 8.9 10/11/19 06:46: POC Glucose 239 H Current Medications Acetaminophen (Tylenol) 650 mg PO Q6H PRN PRN PRN Reason: Pain Score 1-10/Temp > 100.7 F Last Admin: 10/09/19 14:18 Dose: 650 mg Documented by: Al Hydroxide/Mg Hydroxide (Mylanta Ii) 30 ml PO Q6H PRN PRN PRN Reason: Gastric Burning Albuterol Sulfate (Ventolin Aerosols) 2.5 mg INHALATION Q2H PRN PRN PRN Reason: Shortness of Breath/Wheezing Amlodipine Besylate (Norvasc) 5 mg PO DAILY [facility] Last Admin: 10/10/19 08:27 Dose: 5 mg Documented by: Cyclobenzaprine HCl (Flexeril) 10 mg PO TID PRN PRN PRN Reason: MUSCLE SPASM Last Admin: 10/11/19 06:37 Dose: 10 mg Documented by: Enoxaparin Sodium (Lovenox) 40 mg SC DAILY [facility] Last Admin: 10/10/19 08:27 Dose: 40 mg Documented by: Glucagon () 1 mg IM .X1 PRN PRN Reason: Hypoglycemia Sodium Chloride () 1,000 mls @ 125 mls/hr IV .Q8H [facility] Last Admin: 10/11/19 00:35 Dose: 125 mls/hr Documented by: Dextrose (Dextrose 10%-Water) 250 mls @ 999 mls/hr IV .Q16M PRN; Protocol PRN Reason: HYPOGLYCEMIA Sodium Chloride () 250 mls @ 15 mls/hr IV .[id number] PRN PRN Reason: Saline Flush Sodium Chloride () 250 mls @ 15 mls/hr IV .[id number] PRN PRN Reason: Additional IVPB Infusion Insulin Human Lispro (Humalog Kwikpen (Bkc)) 0 unit SC [facility]; Protocol Last Admin: 10/11/19 07:52 Dose: Not Given Documented by: Labetalol HCl (Trandate) 100 mg PO BID [facility] Last Admin: 10/10/19 22:18 Dose: 100 mg Documented by: Linagliptin (Tradjenta) 5 mg PO DAILY [facility] Last Admin: 10/10/19 08:27 Dose: 5 mg Documented by: Magnesium Hydroxide (Milk Of Magnesia) 30 ml PO DAILY PRN PRN PRN Reason: Constipation Melatonin (Melatonin) 3 mg PO QHS PRN PRN PRN Reason: INSOMNIA Last Admin: 10/10/19 22:20 Dose: 3 mg Documented by: Methylprednisolone (Solu-Medrol) 40 mg IV Q8 [facility] Last Admin: 10/11/19 06:32 Dose: 40 mg Documented by: Morphine Sulfate () 4 mg IV Q3H PRN PRN PRN Reason: Pain Score 6-10/10 Last Admin: 10/10/19 16:52 Dose: 4 mg Documented by: [facility] ([facility]ros[facility]) [facility] Last Admin: 10/10/19 16:47 Dose: 500 mg Documented by: Nitroglycerin (Nitrostat) 0.4 mg SUBLINGUAL Q5M PRN PRN Reason: CARDIAC/CHEST PAIN Nutritional Formula (Lactose Free) (Glucerna Shake) 120 ml PO 4X/DAY [facility] Last Admin: 10/10/19 22:27 Dose: 120 ml Documented by: Ondansetron HCl (Zofran) 4 mg IV Q8H PRN PRN PRN Reason: NAUSEA/VOMITING Last Admin: 10/09/19 18:02 Dose: 4 mg Documented by: Oxycodone HCl (Oxyir) 10 mg PO Q4H PRN PRN PRN Reason: Pain Score 4-5/10 Last Admin: 10/11/19 06:36 Dose: 10 mg Documented by: Oxycodone HCl (Oxycontin) 10 mg PO BID [facility] Last Admin: 10/10/19 22:25 Dose: 10 mg Documented by: Sodium Chloride () 10 - 40 ml IV UD PRN PRN Reason: SALINE FLUSH Last Admin: 10/10/19 16:52 Dose: 10 ml Documented by: Sodium Chloride (Gem Nasal [place]) 2 spray NASAL TID PRN PRN PRN Reason: NASAL DRYNESS Last Admin: 10/11/19 06:32 Dose: 2 spray Documented by: Throat Lozenges (Cepacol Sore Throat Lozenge) 1 lozenge MUCOUS MEM Q2H PRN PRN PRN Reason: SORE THROAT Last Admin: 10/10/19 04:08 Dose: 1 lozenge Documented by: Medical Necessity - Tobacco Use Smoking Status: Never smoker Assessment/Plan All Active Problems Back pain (Acute) Hyponatremia (Acute) 1. Acute intractable back pain, h/o chronic back pain, recent MRI of L/S (10/06/19) showed multilevel degenerative joint disease as well as suspected compression fractures involving L3 to L5 vertebral bodies of undetermined age. Pain management consulted, continue on IV steroids, oxycodone prn PT/OT to evaluate and treat 2.Hyponatremia likely secondary to hydrochlorothiazide, improved, Sodium is 132, continue to trend BMP 3. Hypertension, uncontrolled, hydrochlorothiazide held on account of hyponatremia Will continue on amlodipine 5mg daily, resume lisinopril 30 mg daily, continue on labetalol 100mg po bid Will continue to monitor vitals 4.Type 2 DM, BS are uncontrolled, will check HgBA1c, continue on high dose ISS and tradjenta 5.Morbid obesity with BMI of 48.4, lifestyle modifications recommended 6. DVT prophylaxis - Lovenox SC Code Visit Inpatient E&M: 72312 Subs Hosp L2
[2019-10-11] MEDS: Naproxen 500 MG Tablet PO ×2 (08:41→16:50)
[2019-10-11] MEDS: Enoxaparin 40 MG/0.4 ML Syringe SC (08:42)
[2019-10-11] MEDS: amLODIPine 5 MG Tablet PO (08:43)
[2019-10-11] MEDS: LINAGLIPTIN 5 MG TABLET PO (08:43)
[2019-10-11] MEDS: Labetalol 100 MG Tablet PO ×2 (08:43→21:44)
[2019-10-11] MEDS: Glucerna Shake 120 ML LIQUID PO ×2 (08:49→21:48)
[2019-10-11] MEDS: oxyCODONE HCl Cr 10 MG Tablet PO ×2 (10:20→21:48)
--- NOTE | 2019-10-11 10:30 | CASEMGMT ---
Addendum entered by Leida Yeager 10/11/19 11:23: SW did provide pt with list of SNF that accept pt's insurance. Original Note: Social Work Assessment Referral Date: 10/11/2019 Date of Assessment: 10/11/2019 Reason for consult: Discharge planning, pt presents with back pain to [facility] Informant: LIVIER Personal Status: SW met with pt to complete initial assessment. SW introduced self and role at [facility]. Pt is alert and orientated x3. Pt states that she lives with her in a trailer with first floor set up. Pt states that there are five steps to get to the landing and then an additional step to enter the trailer. Pt states that she has handrails next to the steps. DME include cane, walker, and wheelchair. Pt states that she was previously able to get up out of the chair at home but states recently she has needed to call her grandson to come assist her with getting out of the chair. Pt states that her grandson doesn't live with her but states he lives close. Pt states that she has family/friends that come over to assist with cleaning and states that her is able to cook and states [facility] is close too. PCP is Dr. Yonis Torres and Pharmacy is [facility]. Pt denied any previous HHC or SNF. Pt states that her is able to transport pt. Pt states she used to be able to drive but states her eyesight has gotten worse and she doesn't feel comfortable driving herself anymore. Pt states that she was going to [facility] in [place] 3x a week for outpatient therapy. Substance Abuse Hx: Pt denied Mental Health Hx: Pt denied SW spoke with pt regarding HHC and SNF. Pt states that she would prefer to return home at discharge with HHC. SW informed pt that going to SNF for rehabilitation may be beneficial for pt. Pt states she would like to wait until her Jet arrives to [facility] to discuss discharge plans. SW informed pt that JA ANAYA and this worker could come to speak with both pt and in regards to discharge planning. JA ANAYA updated. Plan: TBD. SW and JA ANAYA to meet with pt and pt's to discuss discharge plans. Leida Yeager HERB GROWER, NAIL SETTER
[2019-10-11 11:56] LABS: Bedside Glucose 328 mg/dL (70-110)
--- NOTE | 2019-10-11 12:15 | CASEMGMT ---
Social Work Note LIVIER met with pt, pt's Jet and pt's son Cheng. Pt gave this worker permission to speak to her in front of her guest. Pt and pt's family agreeable to SNF and would like first choice [facility], second choice [facility] and third choice is [facility]. LIVIER explained referral process and that pt will need pre-cert. Pt and pt's family state understanding. LIVIER placed a call to referral line. [facility] states no beds on TCU. LIVIER spoke with Meghna REID who will send referral to [facility]. Plan: SNF pending acceptance and pre-cert Leida Yeager EVAPORATOR SUPERVISOR, MECHANICAL PROJECT ENGINEER
--- NOTE | 2019-10-11 12:52 | CASEMGMT ---
Social Work Phone call to [facility]. They were unable to tell SW if they had beds available, but requested information be faxed. Referral faxed to [facility]. Will await determination if they can accept pt. JEANETTE Joshi
--- NOTE | 2019-10-11 15:02 | CASEMGMT ---
Addendum entered by Leida Yeager 10/11/19 15:47: Pt's son Cheng updated on acceptance to [facility] pending pre-cert. Original Note: Social Work Note SW received call from Pura at [facility]. Pura states she is able to accept pt and will submit for pre-cert. Plan: [facility] pending pre-cert Leida Yeager STORE GIFT WRAP ASSOCIATE, CORRECTIONS CASEWORKER
--- NOTE | 2019-10-11 15:23 | CASEMGMT ---
JA CM in to complete GONZALEZ form with patient. GONZALEZ form explained and patient voiced understanding. Patient signed form and copy provided to patient. Signed GONZALEZ form placed in chart.
[2019-10-11 16:01] LABS: Bedside Glucose 253 mg/dL (70-110)
[2019-10-11] MEDS: 0.9% Normal Saline 1,000 ML 75 ML IV (16:51)
[2019-10-11] MEDS: Albuterol 2.5 MG/3 ML VIAL.NEB. INHALATION ×2 (19:19→23:27)
[2019-10-11] MEDS: Insulin Lispro 100 UNIT/ML INSULN.PEN SC (21:53)
[2019-10-11 22:01] LABS: Bedside Glucose 265 mg/dL (70-110)
[2019-10-11] MEDS: MELATONIN 3 MG TABLET PO (22:23)
[2019-10-12] VITALS (11 sets, daily range): BP systolic 135–154; BP diastolic 50–93; PULSE 63–86; RESP 16–22; TEMP 36.3–37.3; O2SAT 95–99; BMI 48.4
[2019-10-12] MEDS: oxyCODONE 5 MG Tablet 10 MG PO (02:51)
--- NOTE | 2019-10-12 06:00 | EKG12_ITS ---
Test Reason : PRE-OP Blood Pressure : / mmHG Vent. Rate : 064 BPM Atrial Rate : 064 BPM P-R Int : 170 ms QRS Dur : 120 ms QT Int : 430 ms P-R-T Axes : 046 -56 093 degrees QTc Int : 443 ms Normal sinus rhythm Left anterior fascicular block Septal infarct , age undetermined Abnormal ECG When compared with ECG of 28-SEP-2016 13:38, Septal infarct is now Present Confirmed by JOSE FARLEY, MIRIAM ([id number]), social media editor LIDIA CATES ([id number]) on 10/18/2019 4:00:33 PM Referred By: DR FISHER Confirmed By:MIRIAM GARCIA MD
[2019-10-12] MEDS: 0.9% Normal Saline 1,000 ML 75 ML IV ×2 (06:02→18:06)
[2019-10-12 06:18] LABS: Albumin, Serum 2.6 g/dL (3.2-5.0); BUN 18 mg/dL (7-18); BUN/Creat Ratio 25.8 RATIO (10-20); Chloride 98 mmol/L (98-107); EST Glomerular Filtration Rate 86 mL/min (>60); Est Glom Filt Rate - Afr Amer 104 mL/min (>60); Estimated Creatinine Clearance 32.23 ml/min; Glucose 239 mg/dL (74-106); Phosphorus 2.4 mg/dL (2.5-4.9); Potassium 4.8 mmol/L (3.5-5.1); Sodium Level 132 mmol/L (136-145)
[2019-10-12] MEDS: Insulin Lispro 100 UNIT/ML INSULN.PEN SC ×4 (06:35→21:42)
[2019-10-12] MEDS: Albuterol 2.5 MG/3 ML VIAL.NEB. INHALATION (06:45)
[2019-10-12 06:52] LABS: Hematocrit 32.5 % (37-47); Hemoglobin 10.9 g/dL (12.0-15.0); Mean Corp Hgb Conc 33.5 g/dL (32-36); Mean Corpuscular Volume 89.5 fL (81-99); Mean Platelet Vol. 9.5 fl (6.2-12.0); Platelet Count 277 K/mm3 (150-450); RBC Distribution Width SD 45.4 fl (35.1-43.9); Red Blood Count 3.63 M/mm3 (4.2-5.4)
[2019-10-12 06:55] LABS: Bedside Glucose 241 mg/dL (70-110)
[2019-10-12] MEDS: amLODIPine 5 MG Tablet PO (08:08)
[2019-10-12] MEDS: LINAGLIPTIN 5 MG TABLET PO (08:08)
[2019-10-12] MEDS: Labetalol 100 MG Tablet PO ×2 (08:08→21:42)
[2019-10-12] MEDS: Lisinopril 10 MG Tablet 30 MG PO (08:10)
[2019-10-12] MEDS: oxyCODONE HCl Cr 10 MG Tablet PO ×2 (08:10→21:42)
[2019-10-12 09:46] LABS: Hemoglobin A1c 7.9 % (4.2-6.3)
--- NOTE | 2019-10-12 11:03 | CASEMGMT ---
Addendum entered by Leida Yeager 10/12/19 16:18: Per physician, pt is not medically cleared for discharge today. LIVIER placed a call to Pura at [facility] and updated her. Pre-cert is still good for tomorrow. Pt's son Cheng and pt's Jet requesting to speak to this worker. SW updated Cheng and Jet that insurance approval has been obtained and as long as pt is medically cleared, physician is planning on discharge tomorrow. LIVIER informed Cheng and Jet that pt could transport via wheelchair van but it would be private pay and wheelchair vans are hard to get scheduled for pt. Cheng and Jet state Jet is able to transport pt as long as pt gets assistance into and out of car. LIVIER informed Cheng and Jet that staff can wheel pt down in wheelchair, assist pt into car and then once pt arrives at [facility], their staff can meet pt with wheelchair and assist pt from car to wheelchair. Cheng and Jet state understanding. [facility] Addendum entered by Leida Yeager 10/12/19 12:04: SW received call from Pura at [facility] stating pre-cert has been obtained. LIVIER updated Tabby that pt is getting injection at 1:00pm so discharge won't be till later this afternoon. Pura states understanding. Physician updated. Plan: [facility] today Original Note: Social Work Note SW updated that pt is getting epidural injection today at 1:00pm. [facility] Leida Yeager CARTON FILLER, COAT IRONER HAND
[2019-10-12 11:30] LABS: Bedside Glucose 285 mg/dL (70-110)
--- NOTE | 2019-10-12 13:43 | RAD_ITS ---
PROCEDURE: L3-L4 lumbar block. DATE OF EXAMINATION: October 12, 2019. INDICATION: Female, 79 years old. Back pain. FLUOROSCOPY TIME (if supplied): (5.9 seconds) minutes/seconds Intraoperative imaging provided for L3-L4 lumbar block.. RAD/Fluor Guidance for Spine Inj IMPRESSION: Intraoperative imaging provided for L3-L4 lumbar block. Electronically Signed: Jc Koehler, at 15:01 EST , Service support ,
[2019-10-12] MEDS: Triamcinolone Acetonide 40 MG/ML Vial (13:54)
--- NOTE | 2019-10-12 16:03 | PN_ITS ---
Patient Problems: Active and Suspected Problems Back pain (Acute) Hyponatremia (Acute) Reason for Visit: Follow-up on acute on chronic back pain Subjective: Patient seen and examined. She feels better. She is getting epidural injection today. Objective: Physical exam: General: Alert, Oriented x3, Cooperative, No apparent distress HEENT: Atraumatic, PERRLA, EOMI, Normocephalic Oral: Moist Mucosa Neck: Supple Lungs: Clear to auscultation, Normal air movement Cardiovascular: Regular rate, Regular Rhythm, Normal S1, Normal S2, No murmurs Abdomen: Bowel Sounds Present, Soft, Non Tender, Non-Distended, No Hepato- splenomegaly Extremities: No edema Skin: No rashes Musculoskeletal: No Tenderness to Palpation of Joints or Extremities Lymphatic: No Cervical, Supraclavicular, or Inguinal Adenopathy Neurological: Cranial nerves II-XII grossly intact, Neuro grossly intact Psych/Mental Status: Normal Affect, Appropriate Vitals/I&O's: Vital Signs Temp Pulse Resp BP Pulse Ox 99.0 F 63 16 140/74 H 96 10/12/19 14:15 10/12/19 14:15 10/12/19 14:15 10/12/19 14:15 10/12/19 14:15 Oxygen Delivery Method Room Air Weight: 112.5 kg Body Mass Index (BMI) 48.4 Intake and Output for Last 24 Hours 10/10/19 10/11/19 10/12/19 23:59 23:59 23:59 Intake Total 3910 / 3910 3950.42 / 3950.42 1388.75 / 1388.75 Output Total 1300 / 2250 4850 / 4850 2275 / 2275 Balance 2610 / 1660 -899.58 / -899.58 -886.25 / -886.25 Laboratory Results 10/11/19 21:52: POC Glucose 265 H 10/12/19 05:35: Sodium 132 L, Potassium 4.8, Chloride 98, Carbon Dioxide 28.0, BUN 18, Creatinine 0.70, Estim Creat Clear Calc 32.23, Est GFR (MDRD) Af Amer 104, Est GFR (MDRD) Non-Af 86, BUN/Creatinine Ratio 25.8 H, Glucose 239 H, Calcium 9.0, Phosphorus 2.4 L, Albumin 2.6 L 10/12/19 05:35: WBC 22.0 H, RBC 3.63 L, Hgb 10.9 L, Hct 32.5 L, MCV 89.5, MCH 30.0, MCHC 33.5, RDW Std Deviation 45.4 H, RDW Coeff of Lisa 14.0, Plt Count 277, MPV 9.5 10/12/19 05:35: Hemoglobin A1c 7.9 H 10/12/19 06:35: POC Glucose 241 H 10/12/19 11:20: POC Glucose 285 H Current Medications Acetaminophen (Tylenol) 650 mg PO Q6H PRN PRN PRN Reason: Pain Score 1-10/Temp > 100.7 F Last Admin: 10/09/19 14:18 Dose: 650 mg Documented by: Al Hydroxide/Mg Hydroxide (Mylanta Ii) 30 ml PO Q6H PRN PRN PRN Reason: Gastric Burning Albuterol Sulfate (Ventolin Aerosols) 2.5 mg INHALATION Q2H PRN PRN PRN Reason: Shortness of Breath/Wheezing Last Admin: 10/12/19 06:45 Dose: 2.5 mg Documented by: Amlodipine Besylate (Norvasc) 10 mg PO DAILY [facility] Cyclobenzaprine HCl (Flexeril) 10 mg PO TID PRN PRN PRN Reason: MUSCLE SPASM Last Admin: 10/11/19 06:37 Dose: 10 mg Documented by: Enoxaparin Sodium (Lovenox) 40 mg SC DAILY [facility] Last Admin: 10/12/19 07:03 Dose: Not Given Documented by: Glucagon () 1 mg IM .X1 PRN PRN Reason: Hypoglycemia Sodium Chloride () 1,000 mls @ 75 mls/hr IV .[id number] [facility] Last Admin: 10/12/19 06:02 Dose: 75 mls/hr Documented by: Dextrose (Dextrose 10%-Water) 250 mls @ 999 mls/hr IV .Q16M PRN; Protocol PRN Reason: HYPOGLYCEMIA Sodium Chloride () 250 mls @ 15 mls/hr IV .[id number] PRN PRN Reason: Saline Flush Sodium Chloride () 250 mls @ 15 mls/hr IV .[id number] PRN PRN Reason: Additional IVPB Infusion Insulin Human Lispro (Humalog Kwikpen (Bkc)) 0 unit SC ACHS [facility]; Protocol Last Admin: 10/12/19 11:22 Dose: 9 u Documented by: Labetalol HCl (Trandate) 100 mg PO BID [facility] Last Admin: 10/12/19 08:08 Dose: 100 mg Documented by: Linagliptin (Tradjenta) 5 mg PO DAILY [facility] Last Admin: 10/12/19 08:08 Dose: 5 mg Documented by: Lisinopril (Zestril) 30 mg PO DAILY [facility] Last Admin: 10/12/19 08:10 Dose: 30 mg Documented by: Magnesium Hydroxide (Milk Of Magnesia) 30 ml PO DAILY PRN PRN PRN Reason: Constipation Melatonin (Melatonin) 3 mg PO QHS PRN PRN PRN Reason: INSOMNIA Last Admin: 10/11/19 22:23 Dose: 3 mg Documented by: Methylprednisolone (Solu-Medrol) 40 mg IV Q8 [facility] Last Admin: 10/12/19 15:25 Dose: 40 mg Documented by: Morphine Sulfate () 4 mg IV Q3H PRN PRN PRN Reason: Pain Score 6-10/10 Last Admin: 10/10/19 16:52 Dose: 4 mg Documented by: [facility] Last Admin: 10/12/19 07:03 Dose: Not Given Documented by: Nitroglycerin (Nitrostat) 0.4 mg SUBLINGUAL Q5M PRN PRN Reason: CARDIAC/CHEST PAIN Nutritional Formula (Lactose Free) (Glucerna Shake) 120 ml PO 4X/DAY [facility] Last Admin: 10/12/19 14:21 Dose: Not Given Documented by: Ondansetron HCl (Zofran) 4 mg IV Q8H PRN PRN PRN Reason: NAUSEA/VOMITING Last Admin: 10/09/19 18:02 Dose: 4 mg Documented by: Oxycodone HCl (Oxyir) 10 mg PO Q4H PRN PRN PRN Reason: Pain Score 4-5/10 Last Admin: 10/12/19 02:51 Dose: 10 mg Documented by: Oxycodone HCl (Oxycontin) 10 mg PO BID [facility] Last Admin: 10/12/19 08:10 Dose: 10 mg Documented by: Sodium Chloride () 10 - 40 ml IV UD PRN PRN Reason: SALINE FLUSH Last Admin: 10/10/19 16:52 Dose: 10 ml Documented by: Sodium Chloride ([place] Nasal [place]) 2 spray NASAL TID PRN PRN PRN Reason: NASAL DRYNESS Last Admin: 10/11/19 22:23 Dose: 2 spray Documented by: Throat Lozenges (Cepacol Sore Throat Lozenge) 1 lozenge MUCOUS MEM Q2H PRN PRN PRN Reason: SORE THROAT Last Admin: 10/10/19 04:08 Dose: 1 lozenge Documented by: STROKE Vital Signs/Narrative: Vital Signs Temp Pulse Resp BP Pulse Ox 10/12/19 14:15 99.0 F 63 16 140/74 H 96 10/12/19 14:10 66 16 144/60 H 97 10/12/19 14:00 99.2 F H 69 16 143/74 H 96 10/12/19 13:05 65 16 143/58 H 97 Medical Necessity - Tobacco Use Smoking Status: Never smoker Assessment/Plan All Active Problems Back pain (Acute) Hyponatremia (Acute) 1. Acute intractable back pain, h/o chronic back pain, recent MRI of L/S (10/06/19) showed multilevel degenerative joint disease as well as suspected compression fractures involving L3 to L5 vertebral bodies of undetermined age. Going for epidural injection today, continue on oxycodone prn PT/OT to evaluate and treat 2.Hyponatremia likely secondary to hydrochlorothiazide, improved, Sodium is 132, continue to trend BMP 3. Hypertension, uncontrolled, hydrochlorothiazide held on account of hyponatremia Will continue on amlodipine 10 mg daily, lisinopril 30 mg daily, labetalol 100mg po bid Will continue to monitor vitals 4.Type 2 DM, BS are uncontrolled, will check HgBA1c, continue on high dose ISS and tradjenta 5.Morbid obesity with BMI of 48.4, lifestyle modifications recommended 6. DVT prophylaxis - Lovenox SC - Lovenox held on account of epidural injection Code Visit Inpatient E&M: 01903 [facility] Hosp L2
[2019-10-12] MEDS: Naproxen 500 MG Tablet PO (16:34)
[2019-10-12 16:55] LABS: Bedside Glucose 178 mg/dL (70-110)
[2019-10-12] MEDS: Glucerna Shake 120 ML LIQUID PO (21:41)
[2019-10-12 22:26] LABS: Bedside Glucose 264 mg/dL (70-110)
[2019-10-13 03:35] VITALS: BP 150/69; PULSE 70; RESP 18; TEMP 36.7; O2SAT 97
[2019-10-13] MEDS: Albuterol 2.5 MG/3 ML VIAL.NEB. INHALATION (03:59)
[2019-10-13 04:00] VITALS: PULSE 72; RESP 18; O2SAT 97
[2019-10-13] MEDS: Insulin Lispro 100 UNIT/ML INSULN.PEN SC ×2 (06:43→11:16)
[2019-10-13] MEDS: 0.9% Normal Saline 1,000 ML 75 ML IV (06:47)
[2019-10-13 06:50] LABS: Bedside Glucose 217 mg/dL (70-110)
[2019-10-13 07:51] VITALS: BP 166/65; PULSE 71; RESP 18; TEMP 36.3; O2SAT 97
[2019-10-13 08:50] LABS: Absolute Lymphocyte Count 1.27 X10^3/uL (0.83-4.51); Absolute Neutrophil Count 16.6 X10^3/uL (2.0-7.7); Basophil# 0.06 X10^3/uL; Basophil% 0.3 % (0-1); Hematocrit 40.1 % (37-47); Hemoglobin 13.2 g/dL (12.0-15.0); Lymphocyte # 1.27 X10^3/ul (4.0); Lymphocyte % 6.5 % (19-41); Mean Corp Hgb Conc 32.9 g/dL (32-36); Mean Corpuscular Hgb 29.7 pg (27.0-32.0); Mean Corpuscular Volume 90.1 fL (81-99); Mean Platelet Vol. 9.2 fl (6.2-12.0); Monocyte# 1.03 X10^3/uL; Monocyte% 5.3 % (0-10); NRBC Flagged by Analyzer 0 % (0-5); Neutrophil % 84.6 % (47-70); Platelet Count 331 K/mm3 (150-450); RBC Distribution Width CV 14.1 % (11.6-14.6); RBC Distribution Width SD 46.2 fl (35.1-43.9); Red Blood Count 4.45 M/mm3 (4.2-5.4); White Blood Count 19.6 K/mm3 (4.4-11.0)
[2019-10-13] MEDS: Glucerna Shake 120 ML LIQUID PO (09:01)
[2019-10-13] MEDS: Naproxen 500 MG Tablet PO (09:04)
[2019-10-13 09:06] LABS: ALB/GLOB Ratio 0.9 RATIO (0.9-2.4); AST(SGOT) 40 U/L (15-37); Alanine Aminotransfer ALT/SGPT 57 U/L (13-56); Albumin, Serum 3.3 g/dL (3.2-5.0); Alkaline Phosphatase 91 U/L (45-117); Anion Gap 5 (5-15); BUN 20 mg/dL (7-18); BUN/Creat Ratio 25.8 RATIO (10-20); Calcium,Total 9.8 mg/dL (8.5-10.1); Chloride 97 mmol/L (98-107); Creatinine, Serum 0.78 mg/dL (0.55-1.02); EST Glomerular Filtration Rate 76 mL/min (>60); Est Glom Filt Rate - Afr Amer 92 mL/min (>60); Estimated Creatinine Clearance 32.23 ml/min; Globulin 3.8 g/dL (2.2-4.2); Glucose 179 mg/dL (74-106); Potassium 4.1 mmol/L (3.5-5.1); Protein, Total 7.1 g/dL (6.4-8.2); Sodium Level 133 mmol/L (136-145)
[2019-10-13] MEDS: amLODIPine 10 MG Tablet PO (09:06)
[2019-10-13] MEDS: LINAGLIPTIN 5 MG TABLET PO (09:07)
[2019-10-13] MEDS: Lisinopril 10 MG Tablet 30 MG PO (09:07)
[2019-10-13] MEDS: Labetalol 100 MG Tablet PO (09:08)
[2019-10-13] MEDS: oxyCODONE HCl Cr 10 MG Tablet PO (09:11)
--- NOTE | 2019-10-13 09:46 | PCM.TXEXTCAR ---
- Diet 10/12/19 16:23 Diet: Cardiac: Calorie-Controlled Is pt able to select menu?: Yes How many daily calories?: 1800 calorie - Routine Orders/Code Status Keep PO Greater than or Equal to (%): 94 - Encourage use of incentive spirometer Routine Lab Work: CBC - within 3 days, BMP - within 3 days - Wound(s) R elbow Wound Type: scab lower back Wound Type: Puncture - Therapies Weight Bearing: Weight bearing as tolerated Physical Therapy: Eval and Treat Occupational Therapy: Eval and Treat - Allergies/Procedures Done in Hospital Allergies/Adverse Reactions: Allergies Penicillins Allergy (Verified 10/09/19 08:17) Hives Procedures: - - L3-L4 lumbar epidural blck - Type of Care/Length of Stay Estimated LOS: Convalescent Care Less Than 30 days Type of Care Needed: Skilled Rehab Potential: Fair Prognosis: Fair - Additional Orders/Day of Discharge Additional Orders: Perform accuchecks ACHS for 1 week and stop. Day of Discharge: 10/13/19 - Dietary and Speech Recommendations Dietitian Recommendations/Changes: Will change diet order to 1800 calorie/cardiac. - Follow Up Care Primary Care Physician: Yonis Torres MD [Primary Care Provider] - Please follow up with your Primary Care Physician in: within 2 weeks of discharge Please Follow Up With: Kristopher Brown MD When: in 1 month
[2019-10-13 09:54] VITALS: BP 154/80
--- NOTE | 2019-10-13 10:00 | DS.PCM_ITS ---
Discharge Date and Diagnosis Date of Admission: 10/09/19 Date of Discharge: 10/13/19 - Primary Discharge Diagnosis Active and Suspected Problems Back pain (Acute) Hyponatremia (Acute) Uncontrolled hypertension - Secondary Discharge Diagnosis Chronic Problems Essential (primary) hypertension (Chronic) DM2 (diabetes mellitus, type 2) (Chronic) Hospital Course and Treatment Imaging Results: Clinical Impression(s) from Imaging Studies Guidance Fluoroscopy 10/12/19 13:43 IMPRESSION: Intraoperative imaging provided for L3-L4 lumbar block. Electronically Signed: Jc Koehler, at 15:01 EST , Service support , Pain management Operations: None Procedures: - - Status post L3-L4 lumbar epidural injection on 10/12/19 Summary of Care Provided: The patient is a 79 year old F with past medical history of hypertension, type II DM, chronic back pain, follows with Dr. Brown with pain management in the outpatient for intermittent epidural steroid injection. Patient was admitted with a 3-day history of progressive back pain limiting her mobility. MRI of the lumbar spine showed vertebral body height loss of L3-L4 with extensive multilevel neural from a foraminal and lateral recess narrowing with impingement. He was admitted to the [facility] floor for acute pain management. She was started on IV steroids, Tylenol, and morphine IV. Pain management were consulted and patient underwent L3-L4 lumbar epidural injection on 10/12/19. Patient was also seen in [facility] for subacute rehab by PT and OT. Patient's blood sugars were elevated whilst in the hospital and she was continued on her Tradjenta and started also on Amaryl. Her blood pressure was uncontrolled and changes were made to her blood pressure medications. Subjective: On the day of discharge, patient was seen and examined. Denied any new compl aints. Objective: Physical exam: General: Alert, Oriented x3, Cooperative, No apparent distress HEENT: Atraumatic, PERRLA, EOMI, Normocephalic Oral: Moist Mucosa Neck: Supple Lungs: Clear to auscultation, Normal air movement Cardiovascular: Regular rate, Regular Rhythm, Normal S1, Normal S2, No murmurs Abdomen: Bowel Sounds Present, Soft, Non Tender, Non-Distended, No Hepato- splenomegaly Extremities: No edema Skin: No rashes Musculoskeletal: No Tenderness to Palpation of Joints or Extremities Lymphatic: No Cervical, Supraclavicular, or Inguinal Adenopathy Neurological: Cranial nerves II-XII grossly intact, Neuro grossly intact Psych/Mental Status: Normal Affect, Appropriate - Physical Exam Vitals/I&O's: Vital Signs Temp Pulse Resp BP Pulse Ox 97.4 F L 71 18 154/80 H 97 10/13/19 07:51 10/13/19 07:51 10/13/19 07:51 10/13/19 09:54 10/13/19 07:51 Oxygen Delivery Method Room Air Weight: 112.5 kg Body Mass Index (BMI) 48.4 Intake and Output for Last 24 Hours 10/11/19 10/12/19 10/13/19 23:59 23:59 23:59 Intake Total 3950.42 / 3950.42 3053.75 / 3053.75 1351.25 / 1351.25 Output Total 4850 / 4850 3525 / 3525 1650 / 1650 Balance -899.58 / -899.58 -471.25 / -471.25 -298.75 / -298.75 Laboratory Results 10/12/19 11:20: POC Glucose 285 H 10/12/19 16:31: POC Glucose 178 H 10/12/19 21:38: POC Glucose 264 H 10/13/19 06:41: POC Glucose 217 H 10/13/19 08:40: WBC 19.6 H, RBC 4.45, Hgb 13.2, Hct 40.1, MCV 90.1, MCH 29.7, MCHC 32.9, RDW Std Deviation 46.2 H, RDW Coeff of Lisa 14.1, Plt Count 331, MPV 9.2, Immature Gran % (Auto) 3.300 H, Neut % (Auto) 84.6 H, Lymph % (Auto) 6.5 L, [place] % (Auto) 5.3, Eos % (Auto) 0.0, Baso % (Auto) 0.3, Absolute Neuts (auto) 16.6 H, Absolute Lymphs (auto) 1.27, Nucleated RBC % 0 10/13/19 08:40: Sodium 133 L, Potassium 4.1, Chloride 97 L, Carbon Dioxide 31.0, Anion Gap 5, BUN 20 H, Creatinine 0.78, Estim Creat Clear Calc 32.23, Est GFR (MDRD) Af Amer 92, Est GFR (MDRD) Non-Af 76, BUN/Creatinine Ratio 25.8 H, G lucose 179 H, Calcium 9.8, Total Bilirubin 0.50, AST 40 H, ALT 57 H, Alkaline Phosphatase 91, Total Protein 7.1, Albumin 3.3, Globulin 3.8, Albumin/Globulin Ratio 0.9 Current Medications Acetaminophen (Tylenol) 650 mg PO Q6H PRN PRN PRN Reason: Pain Score 1-10/Temp > 100.7 F Last Admin: 10/09/19 14:18 Dose: 650 mg Documented by: Al Hydroxide/Mg Hydroxide (Mylanta Ii) 30 ml PO Q6H PRN PRN PRN Reason: Gastric Burning Albuterol Sulfate (Ventolin Aerosols) 2.5 mg INHALATION Q2H PRN PRN PRN Reason: Shortness of Breath/Wheezing Last Admin: 10/13/19 03:59 Dose: 2.5 mg Documented by: Amlodipine Besylate (Norvasc) 10 mg PO DAILY [facility] Last Admin: 10/13/19 09:06 Dose: 10 mg Documented by: Cyclobenzaprine HCl (Flexeril) 10 mg PO TID PRN PRN PRN Reason: MUSCLE SPASM Last Admin: 10/11/19 06:37 Dose: 10 mg Documented by: Glucagon () 1 mg IM .X1 PRN PRN Reason: Hypoglycemia Sodium Chloride () 1,000 mls @ 75 mls/hr IV .[id number] [facility] Last Admin: 10/13/19 06:47 Dose: 75 mls/hr Documented by: Dextrose (Dextrose 10%-Water) 250 mls @ 999 mls/hr IV .Q16M PRN; Protocol PRN Reason: HYPOGLYCEMIA Sodium Chloride () 250 mls @ 15 mls/hr IV .[id number] PRN PRN Reason: Saline Flush Sodium Chloride () 250 mls @ 15 mls/hr IV .[id number] PRN PRN Reason: Additional IVPB Infusion Insulin Human Lispro (Humalog Kwikpen (Bkc)) 0 unit SC [facility]; Protocol Last Admin: 10/13/19 06:43 Dose: 6 u Documented by: Labetalol HCl (Trandate) 100 mg PO BID [facility] Last Admin: 10/13/19 09:08 Dose: 100 mg Documented by: Linagliptin (Tradjenta) 5 mg PO DAILY [facility] Last Admin: 10/13/19 09:07 Dose: 5 mg Documented by: Lisinopril (Zestril) 30 mg PO DAILY [facility] Last Admin: 10/13/19 09:07 Dose: 30 mg Documented by: Magnesium Hydroxide (Milk Of Magnesia) 30 ml PO DAILY PRN PRN PRN Reason: Constipation Melatonin (Melatonin) 3 mg PO QHS PRN PRN PRN Reason: INSOMNIA Last Admin: 10/11/19 22:23 Dose: 3 mg Documented by: Morphine Sulfate () 4 mg IV Q3H PRN PRN PRN Reason: Pain Score 6-10/10 Last Admin: 10/10/19 16:52 Dose: 4 mg Documented by: [facility] Last Admin: 10/13/19 09:04 Dose: 500 mg Documented by: Nitroglycerin (Nitrostat) 0.4 mg SUBLINGUAL Q5M PRN PRN Reason: CARDIAC/CHEST PAIN Nutritional Formula (Lactose Free) (Glucerna Shake) 120 ml PO 4X/DAY [facility] Last Admin: 10/13/19 09:01 Dose: 120 ml Documented by: Ondansetron HCl (Zofran) 4 mg IV Q8H PRN PRN PRN Reason: NAUSEA/VOMITING Last Admin: 10/09/19 18:02 Dose: 4 mg Documented by: Oxycodone HCl (Oxyir) 10 mg PO Q4H PRN PRN PRN Reason: Pain Score 4-5/10 Last Admin: 10/12/19 02:51 Dose: 10 mg Documented by: Oxycodone HCl (Oxycontin) 10 mg PO BID [facility] Last Admin: 10/13/19 09:11 Dose: 10 mg Documented by: Sodium Chloride () 10 - 40 ml IV UD PRN PRN Reason: SALINE FLUSH Last Admin: 10/10/19 16:52 Dose: 10 ml Documented by: Sodium Chloride ([place] Nasal [place]) 2 spray NASAL TID PRN PRN PRN Reason: NASAL DRYNESS Last Admin: 10/11/19 22:23 Dose: 2 spray Documented by: Throat Lozenges (Cepacol Sore Throat Lozenge) 1 lozenge MUCOUS MEM Q2H PRN PRN PRN Reason: SORE THROAT Last Admin: 10/10/19 04:08 Dose: 1 lozenge Documented by: Discharge Diet: Low fat/ Low Cholesterol, 2000 mg Sodium Diet, Carb Control Diet Discharge Activity: Return to Normal Activity Home Medications: Medications to take at Discharge Labetalol [Trandate (Beta Josiah)] 100 mg PO BID 10/09/19 Lisinopril 30 mg PO DAILY 10/09/19 Lisinopril/Hydrochlorothiazide [Lisinopril-Hctz 20-25 mg Tab] 1 ea PO DAILY 10/09/19 Naproxen 500 mg PO BID 10/09/19 Sennosides/Docusate Sodium [Docusate Sodium-Senna Tablet] 1 ea PO DAILY 10/09/19 Sitagliptin Phosphate [Januvia] 100 mg PO DAILY 10/09/19 Amlodipine [Norvasc] 10 mg PO DAILY tab 10/13/19 Glimepiride [Amaryl] 1 mg PO DAILY 30 Days #30 tab 10/13/19 Glucerna Shake 120 ml PO 4X/DAY liquid 10/13/19 Oxycodone HCl/Acetaminophen [Oxycodon-Acetaminophen 2.5-325] 1 ea PO Q6H PRN PRN 5 Days #20 tab 10/13/19 Sodium Chloride 0.65% [[place] Nasal [place]] 2 spray NASAL TID PRN PRN spray.btl 10/13/19 cycloBENZAPRine HCl [Flexeril] 10 mg PO TID PRN PRN tab 10/13/19 Following Prescrptions Were Given to Patient: Glimepiride [Amaryl] 1 mg PO DAILY 30 Days #30 tab Oxycodone HCl/Acetaminophen [Oxycodon-Acetaminophen 2.5-325] 1 ea PO Q6H PRN PRN 5 Days #20 tab PRN Reason: Pain Or Fever Prescription Printed Primary Care Physician: Yonis Torres MD [Primary Care Provider] - Please follow up with your Primary Care Physician in: within 2 weeks of discharge Please Follow Up With: Kristopher Brown MD When: in 1 month Disposition: Half-Way facility Minutes spent on discharge:: 40 Patient Condition:: Stable Medical Necessity - Tobacco Use Smoking Status: Never smoker Tobacco Use: Non-smoker Meaningful Use Info Meaningful Use Diagnoses (Choose all that apply): None applicable Code Visit Inpatient E&M: 39343 Disch Hosp
--- NOTE | 2019-10-13 11:07 | CASEMGMT ---
Social Work Note Pt is discharging to [facility] today. LIVIER faxed discharge paperwork to [facility] including transfer to extended care facility, signed medication list and any scripts. LIVIER completed PAS/RR in HENS. Original in SNF folder and copy on pt's chart. SW in to speak with pt and pt's Jet present in room. LIVIER updated pt and Jet that pt is going to discharge to [facility] today. Jet confirms that he is able to transport pt. Jet states that Cheng should be on his way to [facility] as well. RN updated. LIVIER placed a call to pt's son Cheng and left message informing him that pt is discharging today and pt is ready once Jet is ready to transport pt. LIVIER placed a call to [facility] and updated Rachel on discharge and transportation. Plan: [facility] skilled today with pt's family transporting via private vehicle Leida Yeager ACTIVITIES THERAPIST, POST ANESTHESIA CARE UNIT NURSE
[2019-10-13 11:25] LABS: Bedside Glucose 263 mg/dL (70-110)
--- NOTE | 2019-10-13 13:33 | NURSING ---
Student documentation reviewed.
== END 2019-10-13 12:50 | disposition skilled nursing facility (03) ==
LOC: ED 09:02 → MS3 10:10
PROVIDERS: Anesthesiology; Anesthesiology Pain Medicine; Admitting Provider Internal Medicine; Emergency Provider Emergency Medicine; PCP Family Medicine; Visit Provider Internal Medicine
PROC: 3E0S3BZ Introduction of Anesthetic Agent into Epidural Space, Percutaneous Approach (ICD-10-PCS; CPT 62322; principal; 2019-10-12 13:25)
DX: G89.29 Other chronic pain (principal); M54.5 Low back pain; E87.1 Hypo-osmolality and hyponatremia; I10 Essential (primary) hypertension; E11.9 Type 2 diabetes mellitus without complications; Z79.899 Other long term (current) drug therapy; M19.90 Unspecified osteoarthritis, unspecified site; M79.89 Other specified soft tissue disorders; E66.01 Morbid (severe) obesity due to excess calories; Z68.42 Body mass index [BMI] 45.0-49.9, adult; Z71.3 Dietary counseling and surveillance
CPT/HCPCS: 01992; 62323; 36415; 64483; 77003; 80048; 80053; 80069; 81001; 82550; 82962; 83036; 85025; 85027; 93005; 93970; 94640; 96361; 96372; 96374; 96375; 96376; 97116; 97162; 97167; 97530; 97535; 97802; 99218; 99251; 99285; J7030; A4216; G0378; G0463; J2405

== ENCOUNTER 2019-10-20 17:10 | Inpatient (IN) | payer MEDICARE, SELFPAY ==
[2019-10-12 11:30] VITALS: BMI 48.4
[2019-10-20] VITALS (7 sets, daily range): BP systolic 119–146; BP diastolic 40–82; PULSE 63–66; RESP 15–20; TEMP 36.5–36.6; O2SAT 97–99; BMI 52.3; BMI 49.0
--- NOTE | 2019-10-20 17:22 | EKG12_ITS ---
Test Reason : ABN LABS Blood Pressure : / mmHG Vent. Rate : 063 BPM Atrial Rate : 063 BPM P-R Int : 176 ms QRS Dur : 118 ms QT Int : 406 ms P-R-T Axes : 034 -57 076 degrees QTc Int : 415 ms Normal sinus rhythm Left anterior fascicular block ST elevation, consider early repolarization, pericarditis, or injury Abnormal ECG Confirmed by PATY FARLEY, JORDYN ([id number]), script editor LESLEY KUMAR ([id number]) on 10/22/2019 1:00:43 PM Referred By: BRYCE Confirmed By:GALE NEWMAN MD
--- NOTE | 2019-10-20 17:29 | ED.VIS.GEN ---
History of Present Illness Chief Complaint: Abn Labs Informant: Patient Narrative: Patient was sent in from [facility] secondary to abnormal labs. Patient was admitted to this hospital September through October 12 for back pain. At the time of discharge her sodium was 133, BUN 20, creatinine 0.78. Repeat labs now reveal a sodium of 119, BUN of 54, creatinine of 2.1. They state the patient has not been able to get up and ambulate since the day after she was discharged. Patient states that she has been very thirsty and drinking a lot of water but they recently took that away from her. She reports urinating normally. Her primary complaint at this time is aching in her legs and weakness. - Past Medical History (1) Back pain Status: Chronic (2) DM2 (diabetes mellitus, type 2) Status: Chronic (3) Essential (primary) hypertension Status: Chronic Past Medical History - Allergies and Home Meds Allergies/Adverse Reactions: Allergies Penicillins Allergy (Verified 10/20/19 17:14) Hives Primary Care Physician: Yonis Torres MD [Primary Care Provider] - Prior records reviewed: Yes Surgical History: noncontributory Lives: Custodial Smoking Status: Never smoker - Family History Paternal Family History: Reports: Heart Disease Review of Systems General: Denies: Chills, Fever Eyes: Denies: Visual changes - bilaterally ENT: Denies: Bilateral ear pain Cardiovascular: Denies: Chest pain Respiratory: Denies: Dyspnea, Cough Gastrointestinal: Reports: Abdominal pain. Denies: Nausea, Vomiting Genitourinary: Denies: Dysuria Musculoskeletal: Reports: Extremity Pain Skin: Denies: Rash Neurological: Reports: Weakness Physical Exam Vital Signs/Narrative: Vital Signs Temp Pulse Resp BP Pulse Ox 10/20/19 17:11 97.7 F L 63 15 124/82 H 99 Inital Vital Signs reviewed: Yes General: Well nourished, Well developed Head: Normocephalic ENT: Moist mucous membranes Neck: Supple Cardiovascular: Regular rate, Regular rhythm Respiratory: No distress, CTA bilaterally Abdomen: Soft, Normal bowel sounds, Tender - Mild diffuse tenderness. No guarding or rebound. Abdomen is slightly distended. Extremities: Negative for: Calf Tenderness Skin: Normal color Neurological: Alert, Oriented x3 Psychological: Normal affect Diagnostic/Tx/Re-eval Laboratory Results 10/20/19 10/20/19 17:25 17:25 WBC 15.3 H RBC 3.86 L Hgb 11.4 L Hct 33.4 L MCV 86.5 MCH 29.5 MCHC 34.1 RDW Std Deviation 42.3 RDW Coeff of Lisa 13.5 Plt Count 241 MPV 9.7 Immature Gran % (Auto) 1.900 H Neut % (Auto) 88.5 H Lymph % (Auto) 2.3 L [place] % (Auto) 6.4 Eos % (Auto) 0.6 Baso % (Auto) 0.3 Absolute Neuts (auto) 13.6 H Absolute Lymphs (auto) 0.35 L Nucleated RBC % 0 Differential Comment SCANNED Sodium 118 L* Potassium 5.2 H Chloride 81 L Carbon Dioxide 30.0 Anion Gap 7 BUN 55 H Creatinine 2.34 H Estim Creat Clear Calc 35.60 Est GFR (MDRD) Af Amer 26 L Est GFR (MDRD) Non-Af 21 L BUN/Creatinine Ratio 23.5 H Glucose 214 H Calcium 9.3 - EKG Initial EKG Interpretation: Sinus Rhythm - Sinus at 63 with left anterior fascicular block. - Medical Decision Making Patient is ordered IV fluids here. Urinalysis is ordered and is pending at this time. Urine obtained via straight cath by nursing staff. I will speak with hospitalist regarding admission. ED Disposition - Plan for ED Patient: Disposition: Acute Care Hospital [facility] Diagnosis: Hyponatremia, Acute renal failure Referrals: Yonis Torres MD [Primary Care Provider] -
[2019-10-20 18:13] LABS: Absolute Lymphocyte Count 0.35 X10^3/uL (0.83-4.51); Absolute Neutrophil Count 13.6 X10^3/uL (2.0-7.7); Basophil# 0.05 X10^3/uL; Basophil% 0.3 % (0-1); Eosinophil# 0.09 X10^3/uL; Eosinophils% 0.6 % (0-5); Hematocrit 33.4 % (37-47); Hemoglobin 11.4 g/dL (12.0-15.0); Lymphocyte # 0.35 X10^3/ul (4.0); Lymphocyte % 2.3 % (19-41); Mean Corp Hgb Conc 34.1 g/dL (32-36); Mean Corpuscular Hgb 29.5 pg (27.0-32.0); Mean Corpuscular Volume 86.5 fL (81-99); Mean Platelet Vol. 9.7 fl (6.2-12.0); Monocyte# 0.98 X10^3/uL; Monocyte% 6.4 % (0-10); NRBC Flagged by Analyzer 0 % (0-5); Neutrophil # 13.57 X10^3/uL (2.7-7.7); Neutrophil % 88.5 % (47-70); POSITIVE DIFFERENTIAL YES; POSITIVE MORPHOLOGY YES; Platelet Count 241 K/mm3 (150-450); RBC Distribution Width CV 13.5 % (11.6-14.6); RBC Distribution Width SD 42.3 fl (35.1-43.9); Red Blood Count 3.86 M/mm3 (4.2-5.4); White Blood Count 15.3 K/mm3 (4.4-11.0)
[2019-10-20 18:15] LABS: Differential Indicated SCAN CRITERIA MET
[2019-10-20 18:20] LABS: Anion Gap 7 (5-15); BUN 55 mg/dL (7-18); BUN/Creat Ratio 23.5 RATIO (10-20); Calcium,Total 9.3 mg/dL (8.5-10.1); Chloride 81 mmol/L (98-107); Creatinine, Serum 2.34 mg/dL (0.55-1.02); EST Glomerular Filtration Rate 21 mL/min (>60); Est Glom Filt Rate - Afr Amer 26 mL/min (>60); Glucose 214 mg/dL (74-106); Potassium 5.2 mmol/L (3.5-5.1); Sodium Level 118 mmol/L (136-145)
[2019-10-20 18:43] LABS: Differential Comment SCANNED
[2019-10-20 18:53] LABS: Mucous, Urine 0 SEEN /hpf (<or=2+); Squamous Epithelial Cells - UA 0 SEEN /hpf (5-10)
[2019-10-20 19:01] LABS: Color, Urine Yellow (Yellow); Glucose, Dipstick Normal (Normal); Ketone-Dipstick Negative (Negative); Leukocyte Esterase-Dipstick 500 /ul (Negative); Nitrite-Dipstick Negative (Negative); Occult Blood-Urine 250 /ul (Negative); Protein-Dipstick 100 mg/dl (Negative); Specific Gravity, Urine 1.015 (1.002-1.030); Urine Bilirubin Dipstick Negative (Negative); Urine Clarity Cloudy (Clear); Urine Urobilinogen Normal (Normal)
--- NOTE | 2019-10-20 19:10 | PCM.HP.STD ---
Problem List (1) Acute renal failure Status: Acute Qualifiers: Acute renal failure type: unspecified Qualified Code(s): N17.9 - Acute kidney failure, unspecified (2) UTI (urinary tract infection) Status: Acute Qualifiers: Urinary tract infection type: site unspecified (3) Urinary retention Status: Acute (4) Hyponatremia Status: Acute (5) HLD (hyperlipidemia) Status: Chronic Qualifiers: Hyperlipidemia type: unspecified Qualified Code(s): E78.5 - Hyperlipidemia, unspecified (6) VIN (obstructive sleep apnea) Status: Chronic (7) Morbid obesity Status: Chronic (8) Essential (primary) hypertension Status: Chronic (9) DM2 (diabetes mellitus, type 2) Status: Chronic Qualifiers: Diabetes mellitus adjunct faculty for medical terminology insulin use: without adjunct faculty for medical terminology use Diabetes mellitus complication status: with other specified complication Qualified Code(s): E11.69 - Type 2 diabetes mellitus with other specified complication History of Present Illness Date of Admission: 10/20/19 Chief Complaint: Abnormal labs, nausea, abdominal pain, dysuria, retention. The patient is a 79 y/o F w/ PMHx: Chronic Hyponatremia, Chronic normocytic anemia, Morbid Obesity, Diabetes mellitus type II, HTN, HLD, Chronic pain syndrome, VIN on CPAP with intermittent usage who presents to the [facility] ED on 10/20/19 referred to the ED from SNF secondary to recent discharge 10/13/19, recently admitted with back pain who now re-presents with abnormal labs noted to be progressively be worsening over the last several days per facility lab testing with concurrent ongoing increasing fatigue, malaise, generalized lower back discomfort, dysuria, suprapubic discomfort, decreased urinary output with suspected retention with no specific fevers or chills but nausea without emesis prompting eventual ED referral. Work-up in the ED included T 97.7, heart rate 63, BP 124/82, respiratory rate 15, 99% on room air, CBC with WBC 15.3, hemoglobin 11.3, platelet 241 with left shift, BMP with sodium 118, potassium 5.2, chloride 81, BUN/creatinine 55/2.34, glucose 214, urinalysis with mildly elevated specific gravity 1.015, protein 100, occult blood 250, negative nitrite, 5 mucus esterase, RBC >100, WBC > 100, 4+, patient being catheterization, UCx also pending per ED. In the ED patient administered normal saline bolus and maintenance fluids as well as IV Rocephin given significant urinary findings. Witnessed placement of Canela catheter and notable 1.5 L urinary retention, foul purulent appearing and foul-smelling. Past Medical History Past Medical History (Chronic Problems): Chronic Problems Back pain (Chronic) Essential (primary) hypertension (Chronic) DM2 (diabetes mellitus, type 2) (Chronic) HLD (hyperlipidemia) (Chronic) VIN (obstructive sleep apnea) (Chronic) Morbid obesity (Chronic) Allergies Penicillins Allergy (Verified 10/20/19 17:14) Hives Home Medications: Ambulatory Orders Medication Instructions Recorded Labetalol [Trandate (Beta Josiah)] 100 mg PO BID 10/09/19 Lisinopril 5 mg PO DAILY 10/09/19 Naproxen 500 mg PO BID 10/09/19 Sennosides/Docusate Sodium 1 ea PO DAILY 10/09/19 [Docusate Sodium-Senna Tablet] Sitagliptin Phosphate [Januvia] 100 mg PO DAILY 10/09/19 Amlodipine [Norvasc] 10 mg PO DAILY tab 10/13/19 Glimepiride [Amaryl] 1 mg PO DAILY 30 Days #30 tab 10/13/19 Oxycodone HCl/Acetaminophen 1 ea PO Q6H PRN PRN 5 Days #20 tab 10/13/19 [Oxycodon-Acetaminophen 2.5-325] Sodium Chloride 0.65% [[place] Nasal 2 spray NASAL TID PRN PRN 10/13/19 Francisco] spray.btl cycloBENZAPRine HCl [Flexeril] 10 mg PO TID PRN PRN tab 10/13/19 Ondansetron [Zofran Odt] 4 mg PO Q6H PRN PRN 10/20/19 hydrALAZINE [Apresoline] 25 mg PO BID 10/20/19 Surgical History: - - Cholecystectomy, appendectomy, hysterectomy, left knee arthroscopic surgery. 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 present during evaluation. Smoking Status: Never smoker Tobacco Use: Non-smoker Alcohol: None Drugs: None - *Family History Paternal History Items: - - Patient notes that her father at age 54, suspected secondary to heart disease complications. Maternal History Items: Hypertension Review of Systems Constitutional: Reports: Anorexia, Malaise, Weakness, Fatigue. Denies: Chills, Fever, Weight Change HEENT: Denies: Head Aches, Sinus Congestion, Sinus Drainage Cardiovascular: Denies: Chest Pain, Palpitations Respiratory: Denies: Cough, Shortness of breath at rest, Sputum production Gastrointestinal: Reports: Abdominal Pain, Constipation, Nausea. Denies: Vomiting Genitourinary: Reports: Dysuria, Retention Musculoskeletal: Reports: Back Pain, Joint Pain, Muscle pain. Denies: Joint Tenderness Skin: Denies: Rash, Wounds Neurological: Denies: Numbness, Tingling, Focal weakness Psychiatric: Denies: Anxiety, Depression, Homicidal Ideations, Suicidal Ideations Hematologic/ Lymphatic: Reports: Anemia. Denies: Easy Bruising, Easy Bleeding VTE Information - Inpt Only VTE Present on Admission: No VTE Mechan Device Prophylaxis: SCD's VTE Pharm Prophylaxis ordered?: Yes Patient Problems: Active and Suspected Problems Hyponatremia (Acute) Acute renal failure (Acute) UTI (urinary tract infection) (Acute) Urinary retention (Acute) Subjective: Laying in the ED bed, fatigued and ill-appearing. Objective: Physical Examination: General: awake, alert, oriented x 3 and cooperative, seated upright in the ED bed, mildly fatigued and ill-appearing. Skin: normal color, turgor, no icterus, cyanosis. HEENT: AT/NC, EOMI, PERRLA, dry MM, no carotid bruits or JVD noted; however, thickened neck makes examination difficult. Lungs: Distant breath sounds likely secondary to habitus, decreased bases, moderate effort, no rales, ronchi or wheezing. Heart: Regular rate and rhythm; no gallop, rub audible. Abdomen: soft, obese, suprapubic discomfort with palpation, ND, distant normal BS, unable to discern HSM secondary to morbidly obese habitus. Extremities: no cyanosis, clubbing, bilateral lower extremity ankle nonpitting edema. Neurological: patient awake, alert, oriented x 3; cognitive function appears baseline intact; pupils equally reactive to light and accomodation; cranial nerves II-XII grossly normal, moving all 4 extremities, no focal deficits, strength severely global decrease secondary to acute presentation. Psychiatric: affect appears fatigued, mildly ill appearing, no acute evidence of depressive or anxiety feelings. - Physical Exam Vitals/I&O's: Vital Signs Temp Pulse Resp BP Pulse Ox 97.7 F L 63 16 141/57 H 97 10/20/19 17:11 10/20/19 18:22 10/20/19 18:22 10/20/19 18:22 10/20/19 18:22 Oxygen Delivery Method Room Air Weight: 259 lb 4.218 oz Body Mass Index (BMI) 52.3 Laboratory Results 10/20/19 17:25: WBC 15.3 H, RBC 3.86 L, Hgb 11.4 L, Hct 33.4 L, MCV 86.5, MCH 29.5, MCHC 34.1, RDW Std Deviation 42.3, RDW Coeff of Lisa 13.5, Plt Count 241, MPV 9.7, Immature Gran % (Auto) 1.900 H, Neut % (Auto) 88.5 H, Lymph % (Auto) 2.3 L, [place] % (Auto) 6.4, Eos % (Auto) 0.6, Baso % (Auto) 0.3, Absolute Neuts (auto) 13.6 H, Absolute Lymphs (auto) 0.35 L, Nucleated RBC % 0, Differential Comment SCANNED 10/20/19 17:25: Sodium 118 L*, Potassium 5.2 H, Chloride 81 L, Carbon Dioxide 30.0, Anion Gap 7, BUN 55 H, Creatinine 2.34 H, Estim Creat Clear Calc 35.60, Est GFR (MDRD) Af Amer 26 L, Est GFR (MDRD) Non-Af 21 L, BUN/Creatinine Ratio 23.5 H, Glucose 214 H, Calcium 9.3 10/20/19 18:51: Urine Color Yellow, Urine Clarity Cloudy, Urine pH 5.0, Ur Specific [place] 1.015, Urine Protein 100 H, Urine Glucose (UA) Normal, Urine Ketones Negative, Urine Occult Blood 250 H, Urine Nitrite Negative, Urine Bilirubin Negative, Urine Urobilinogen Normal, Ur Leukocyte Esterase 500 H, Urine RBC Pending, Urine WBC Pending, Ur Squamous Epith Cells Pending, Urine Bacteria Pending, Urine Mucus Pending Current Medications Sodium Chloride () 1,000 mls @ 150 mls/hr IV .Q6H40M COUNTS INCLUDE 234 BEDS AT THE [facility] Assessment/Plan All Active Problems Hyponatremia (Acute) Acute renal failure (Acute) UTI (urinary tract infection) (Acute) Urinary retention (Acute) The patient is a 79 y/o F w/ PMHx: Chronic Hyponatremia, Chronic normocytic anemia, Morbid Obesity, Diabetes mellitus type II, HTN, HLD, Chronic pain syndrome, VIN on CPAP with intermittent usage who presents to the [facility] ED on 10/20/19 referred to the ED from SNF secondary to recent discharge 10/13/19, recently admitted with back pain who now re-presents with abnormal labs noted to be progressively be worsening over the last several days per facility lab testing with concurrent ongoing increasing fatigue, malaise, generalized lower back discomfort, dysuria, suprapubic discomfort, decreased urinary output with suspected retention. 1. Acute Urinary Tract Infection with associated Urinary Retention and resulting Acute Kidney Injury: Will admit to PCU given level of sodium to be closely monitored, UA upon ED evaluation remarkable, pending UCx, admission CBC w/ WBC 15.3 with left shift, continue IVFs, monitor I/Os, continue IV Rocephin w/ transition as able pending sensitivities and speciation. Admission BUN/Cr 55/2.34, prior baseline creatinine noted to be 0.6-0.8. Will as noted initially hydrate, hold nephrotoxic medications and chemistries as noted. We will continue Canela catheterization given concern for retention. 2. Acute on Chronic Hyponatremia, suspected associate with #1 and possibly hypovolemia: Patient sodium 118, baseline prior appears 126-135, given suspicion for hypovolemia as etiology given recent infection, pain, will continue to judiciously hydrate, trend serial BMPs given level to avoid overcorrection, obtain Uosm, FeNa, TSH levels. Pending these labs may need to alter course and treatment and may need to consider nephrology involvement. Given acute urinary tract infection and possible retention may also be contributing as noted #1. 3. Hypertension: Continue home regimen including labetalol, hydralazine, Norvasc, holding lisinopril given acute kidney injury as noted, PRN hydralazine. 4. Hyperlipidemia: Not on regimen, defer to outpatient. 5. Chronic normocytic anemia: Admission hemoglobin 11.4, baseline Hgb appears 10-11, stable, trend. 6. Diabetes mellitus type II: Hold oral home regimen, continue home insulin regimen, ADA diet, accu checks w/ ISS. 7. Morbid Obesity: Weight loss and lifestyle changes encouraged, nutrition consulted. 8. VIN: We will continue patient home CPAP nightly. 9. DVT prophylaxis: SCDs, heparin. 10. CODE status: Patient DARWIN is her who is present and living will is currently in place. Discussed CODE status at length including difference between FULL code, DNR-CCA and DNR-CC status. Following discussions about the differences in these status, requested DNR-CCA, no intubation. Advanced Care Planning Face to Face Time: 16 minutes. Inpatient E&M: 22615 Init Hosp L3 Procedures: 91465 Advncd Care Plan 30 Min
[2019-10-20 19:19] LABS: Bacteria 4+ /hpf (None Seen); Red Blood Cells-Urine > 100 SEEN /hpf (0-5); White Blood Cells >100 SEEN /hpf (0-5)
[2019-10-20] MEDS: Ceftriaxone 1 GM/50 ML BAG IV (20:02)
[2019-10-20] MEDS: 0.9% Normal Saline 1,000 ML 150 ML IV (20:39)
[2019-10-20 22:30] LABS: Bedside Glucose 159 mg/dL (70-110)
[2019-10-21] VITALS (14 sets, daily range): BP systolic 124–159; BP diastolic 41–63; PULSE 66–78; RESP 16–18; TEMP 36.5–37.2; O2SAT 92–99
[2019-10-21 00:17] LABS: Urine Sodium 24 mmol/L (Not Establ.)
[2019-10-21] MEDS: Heparin Injection (Vial) 5,000 UNIT/ML VIAL 5000 UNIT SC ×3 (00:29→21:24)
[2019-10-21] MEDS: 0.9% Normal Saline 1,000 ML 125 ML IV ×2 (00:29→08:13)
[2019-10-21] MEDS: Labetalol 100 MG Tablet PO ×3 (00:30→21:24)
[2019-10-21] MEDS: hydrALAZINE 25 MG Tablet PO ×3 (00:31→21:24)
[2019-10-21] MEDS: Insulin Lispro 100 UNIT/ML INSULN.PEN SC (00:43)
[2019-10-21 01:06] LABS: Anion Gap 8 (5-15); BUN 53 mg/dL (7-18); BUN/Creat Ratio 25.1 RATIO (10-20); Calcium,Total 9.1 mg/dL (8.5-10.1); Chloride 84 mmol/L (98-107); Creatinine, Serum 2.11 mg/dL (0.55-1.02); EST Glomerular Filtration Rate 24 mL/min (>60); Est Glom Filt Rate - Afr Amer 29 mL/min (>60); Estimated Creatinine Clearance 36.99 ml/min; Glucose 138 mg/dL (74-106); Potassium 5.1 mmol/L (3.5-5.1); Sodium Level 120 mmol/L (136-145); T4 Free Direct 1.56 ng/dL (0.76-1.46)
[2019-10-21 02:10] LABS: Osmolality, Urine 176 mOsm/KG
[2019-10-21 05:07] LABS: Anion Gap 9 (5-15); BUN 52 mg/dL (7-18); Calcium,Total 8.5 mg/dL (8.5-10.1); Chloride 85 mmol/L (98-107); Creatinine, Serum 1.86 mg/dL (0.55-1.02); EST Glomerular Filtration Rate 28 mL/min (>60); Est Glom Filt Rate - Afr Amer 34 mL/min (>60); Estimated Creatinine Clearance 41.97 ml/min; Glucose 120 mg/dL (74-106); Sodium Level 120 mmol/L (136-145)
[2019-10-21] MEDS: Acetaminophen 325 MG Tablet 650 MG PO (05:14)
[2019-10-21 07:01] LABS: Bedside Glucose 65 mg/dL (70-110)
[2019-10-21 07:18] LABS: Absolute Lymphocyte Count 0.37 X10^3/uL (0.83-4.51); Absolute Neutrophil Count 11.7 X10^3/uL (2.0-7.7); Basophil# 0.02 X10^3/uL; Basophil% 0.2 % (0-1); Eosinophil# 0.07 X10^3/uL; Eosinophils% 0.5 % (0-5); Hematocrit 29.1 % (37-47); Hemoglobin 9.9 g/dL (12.0-15.0); Lymphocyte # 0.37 X10^3/ul (4.0); Lymphocyte % 2.8 % (19-41); Mean Corpuscular Hgb 28.9 pg (27.0-32.0); Mean Corpuscular Volume 85.1 fL (81-99); Mean Platelet Vol. 9.7 fl (6.2-12.0); Monocyte% 7.5 % (0-10); NRBC Flagged by Analyzer 0 % (0-5); Neutrophil # 11.66 X10^3/uL (2.7-7.7); Neutrophil % 87.8 % (47-70); POSITIVE DIFFERENTIAL YES; Platelet Count 206 K/mm3 (150-450); RBC Distribution Width CV 13.7 % (11.6-14.6); RBC Distribution Width SD 42.9 fl (35.1-43.9); Red Blood Count 3.42 M/mm3 (4.2-5.4); White Blood Count 13.3 K/mm3 (4.4-11.0)
[2019-10-21 07:24] LABS: Differential Indicated SCAN CRITERIA MET
[2019-10-21 07:40] LABS: Anion Gap 4 (5-15); BUN 49 mg/dL (7-18); Calcium,Total 8.5 mg/dL (8.5-10.1); Chloride 90 mmol/L (98-107); Creatinine, Serum 1.75 mg/dL (0.55-1.02); EST Glomerular Filtration Rate 30 mL/min (>60); Est Glom Filt Rate - Afr Amer 36 mL/min (>60); Glucose 65 mg/dL (74-106); Potassium 4.9 mmol/L (3.5-5.1); Sodium Level 122 mmol/L (136-145)
[2019-10-21] MEDS: Glucerna Shake 120 ML LIQUID PO (08:17)
[2019-10-21] MEDS: 0.9% Normal Saline 1,000 ML 150 ML IV ×3 (08:37→22:33)
[2019-10-21] MEDS: amLODIPine 10 MG Tablet PO (09:39)
[2019-10-21] MEDS: Polyethylene Glycol 3350 17 GM PACKET PO (09:49)
--- NOTE | 2019-10-21 10:44 | CASEMGMT ---
Patient is from [facility]. She is not a senior living resident there she just went there for rehab recently. She will need a pre-cert to return. LIVIER faxed updates to [facility]. Lakeisha CORONADO MSW
--- NOTE | 2019-10-21 11:06 | CASEMGMT ---
LIVIER spoke with patient and her son regarding d/c plan. Patient's son said they wanted patient to go to TCU when she was here before, but they were full. They would like TCU if a bed is available and if not she can go back to [facility]. LIVIER told them SW will check to see if there are beds and let them know. LIVIER called [facility] in TCU and left her a voice mail. Lakeisha CORONADO MSW
[2019-10-21 11:24] LABS: Anion Gap 5 (5-15); BUN 48 mg/dL (7-18); BUN/Creat Ratio 28.4 RATIO (10-20); Calcium,Total 8.5 mg/dL (8.5-10.1); Chloride 90 mmol/L (98-107); Creatinine, Serum 1.69 mg/dL (0.55-1.02); EST Glomerular Filtration Rate 31 mL/min (>60); Est Glom Filt Rate - Afr Amer 37 mL/min (>60); Estimated Creatinine Clearance 46.19 ml/min; Glucose 90 mg/dL (74-106); Potassium 5.1 mmol/L (3.5-5.1); Sodium Level 124 mmol/L (136-145)
--- NOTE | 2019-10-21 11:42 | CASEMGMT ---
Received a call from [facility] and she will have a bed for patient. LIVIER notified patient and her . Patient's son was not present, but patient said she would let him know. LIVIER called [facility] and left a message for Tabby to call LIVIER back. Lakeisha CORONADO MSW
[2019-10-21 11:50] LABS: Osmolality, Serum 266 mOsm/KG (280-301)
[2019-10-21] MEDS: oxyCODONE 5 MG Tablet PO ×2 (12:15→21:23)
[2019-10-21 12:41] LABS: Bedside Glucose 69 mg/dL (70-110)
--- NOTE | 2019-10-21 14:11 | PN_ITS ---
Patient Problems: Active and Suspected Problems Hyperkalemia (Acute) Hyponatremia (Acute) Acute renal failure (Acute) UTI (urinary tract infection) (Acute) Urinary retention (Acute) Subjective: Patient seen and examined. She was admitted to a alf on account of hyponatremia. She has no complaints this morning. She denies any nausea vomiting, fever or chills no abdominal pain or shortness of breath. Labs and vitals reviewed. Sodium was 118 on admission and is now up to 124. She does have a history of chronic hyponatremia. Creatinine was 2.34 and is now down to 1.69 white cell count is down to 13.3. Vitals/I&O's: Vital Signs Temp Pulse Resp BP Pulse Ox 98.2 F 66 18 132/47 H 97 10/21/19 09:35 10/21/19 11:00 10/21/19 09:35 10/21/19 09:39 10/21/19 09:35 Oxygen Flow Rate (L/min) 2 Oxygen Delivery Method Nasal Cannula Weight: 242 lb 15.19 oz Body Mass Index (BMI) 49.0 Intake and Output for Last 24 Hours 10/19/19 10/20/19 10/21/19 23:59 23:59 23:59 Intake Total 550 / 550 2606.67 / 2606.67 Output Total 2300 / 2300 1900 / 1900 Balance -1750 / -1750 706.67 / 706.67 General: Alert, Oriented x3, Cooperative, No apparent distress HEENT: Atraumatic, PERRLA, EOMI, Normocephalic Oral: Dry Mucosa Neck: Supple, No JVD, Negative Carotid Bruits Lungs: Clear to auscultation, Normal air movement, No rhonchi, No wheeze, No rales Cardiovascular: Regular rate, Regular Rhythm, Normal S1, Normal S2, No murmurs Abdomen: Bowel Sounds Present, Soft, Non Tender, Non-Distended, No Hepato- splenomegaly Extremities: No clubbing, No cyanosis, No edema, Capillary Refill Less than 3 Seconds Skin: No rashes, No breakdown Musculoskeletal: No Tenderness to Palpation of Joints or Extremities Lymphatic: No Cervical, Supraclavicular, or Inguinal Adenopathy Neurological: Cranial nerves II-XII grossly intact, Neuro grossly intact, Motor Exam 5/5 strength throughout Psych/Mental Status: Normal Affect, Appropriate, Alert and oriented to time, place, person, mood and affect Microbiology Past 72 Hours 10/20/19 18:51 Urine Catheter - Catheter Urine Culture - Preliminary Gram negative ollie Laboratory Results 10/20/19 11:45: Urine Osmolality 176 10/20/19 11:45: Urine Creatinine 25.70 10/20/19 11:45: Ur Random Sodium 24 10/20/19 17:25: WBC 15.3 H, RBC 3.86 L, Hgb 11.4 L, Hct 33.4 L, MCV 86.5, MCH 29.5, MCHC 34.1, RDW Std Deviation 42.3, RDW Coeff of Lisa 13.5, Plt Count 241, MPV 9.7, Immature Gran % (Auto) 1.900 H, Neut % (Auto) 88.5 H, Lymph % (Auto) 2.3 L, [place] % (Auto) 6.4, Eos % (Auto) 0.6, Baso % (Auto) 0.3, Absolute Neuts (auto) 13.6 H, Absolute Lymphs (auto) 0.35 L, Nucleated RBC % 0, Differential Comment SCANNED 10/20/19 17:25: Sodium 118 L*, Potassium 5.2 H, Chloride 81 L, Carbon Dioxide 30.0, Anion Gap 7, BUN 55 H, Creatinine 2.34 H, Estim Creat Clear Calc 35.60, Est GFR (MDRD) Af Amer 26 L, Est GFR (MDRD) Non-Af 21 L, BUN/Creatinine Ratio 23.5 H, Glucose 214 H, Calcium 9.3 10/20/19 18:51: Urine Color Yellow, Urine Clarity Cloudy, Urine pH 5.0, Ur Specific [place] 1.015, Urine Protein 100 H, Urine Glucose (UA) Normal, Urine Ketones Negative, Urine Occult Blood 250 H, Urine Nitrite Negative, Urine Bilirubin Negative, Urine Urobilinogen Normal, Ur Leukocyte Esterase 500 H, Urine RBC > 100 SEEN, Urine WBC >100 SEEN, Ur Squamous Epith Cells 0 SEEN, Urine Bacteria 4+, Urine Mucus 0 SEEN 10/20/19 22:24: POC Glucose 159 H 10/21/19 00:04: Sodium 120 L, Potassium 5.1, Chloride 84 L, Carbon Dioxide 28.0, Anion Gap 8, BUN 53 H, Creatinine 2.11 H, Estim Creat Clear Calc 36.99, Est GFR (MDRD) Af Amer 29 L, Est GFR (MDRD) Non-Af 24 L, BUN/Creatinine Ratio 25.1 H, Glucose 138 H, Calcium 9.1, TSH 2.10, Free T4 1.56 H 10/21/19 03:20: Sodium 120 L, Potassium 5.0, Chloride 85 L, Carbon Dioxide 26.0, Anion Gap 9, BUN 52 H, Creatinine 1.86 H, Estim Creat Clear Calc 41.97, Est GFR (MDRD) Af Amer 34 L, Est GFR (MDRD) Non-Af 28 L, BUN/Creatinine Ratio 28.0 H, Glucose 120 H, Calcium 8.5 10/21/19 06:50: POC Glucose 65 L 10/21/19 06:58: WBC 13.3 H, RBC 3.42 L, Hgb 9.9 L, Hct 29.1 L, MCV 85.1, MCH 28.9, MCHC 34.0, RDW Std Deviation 42.9, RDW Coeff of Lisa 13.7, Plt Count 206, MPV 9.7, Immature Gran % (Auto) 1.200 H, Neut % (Auto) 87.8 H, Lymph % (Auto) 2.8 L, [place] % (Auto) 7.5, Eos % (Auto) 0.5, Baso % (Auto) 0.2, Absolute Neuts (auto) 11.7 H, Absolute Lymphs (auto) 0.37 L, Nucleated RBC % 0, Differential Comment COMMENT 10/21/19 06:58: Sodium 122 L, Potassium 4.9, Chloride 90 L, Carbon Dioxide 28.0, Anion Gap 4 L, BUN 49 H, Creatinine 1.75 H, Estim Creat Clear Calc 44.60, Est GFR (MDRD) Af Amer 36 L, Est GFR (MDRD) Non-Af 30 L, BUN/Creatinine Ratio 28.0 H , Glucose 65 L, Calcium 8.5 10/21/19 10:50: Sodium 124 L, Potassium 5.1, Chloride 90 L, Carbon Dioxide 29.0, Anion Gap 5, BUN 48 H, Creatinine 1.69 H, Estim Creat Clear Calc 46.19, Est GFR (MDRD) Af Amer 37 L, Est GFR (MDRD) Non-Af 31 L, BUN/Creatinine Ratio 28.4 H, Glucose 90, Calcium 8.5 10/21/19 10:50: Serum Osmolality 266 L 10/21/19 12:09: POC Glucose 69 L Current Medications Acetaminophen (Tylenol) 650 mg PO Q6H PRN PRN PRN Reason: Pain Score 1-10/Temp > 100.7 F Last Admin: 10/21/19 05:14 Dose: 650 mg Documented by: Al Hydroxide/Mg Hydroxide (Mylanta Ii) 30 ml PO Q6H PRN PRN PRN Reason: Gastric Burning Albuterol Sulfate (Ventolin Aerosols) 2.5 mg INHALATION Q2H PRN PRN PRN Reason: SOB/Wheezing Amlodipine Besylate (Norvasc) 10 mg PO DAILY [facility] Last Admin: 10/21/19 09:39 Dose: 10 mg Documented by: Bisacodyl (Dulcolax) 10 mg PO DAILY PRN PRN PRN Reason: Constipation Docusate Sodium (Colace) 200 mg PO BID PRN PRN PRN Reason: Constipation Glucagon () 1 mg IM .X1 PRN PRN Reason: Hypoglycemia Guaifenesin (Robitussin) 20 ml PO Q4H PRN PRN PRN Reason: COUGH Heparin Sodium (Porcine) (Heparin Na) 5,000 unit SC Q12 [facility] Last Admin: 10/21/19 09:39 Dose: 5,000 unit Documented by: Hydralazine HCl (Apresoline) 25 mg PO BID [facility] Last Admin: 10/21/19 09:39 Dose: 25 mg Documented by: Hydralazine HCl (Apresoline Iv) 10 mg IV Q4H PRN PRN PRN Reason: SBP > 160 Ceftriaxone Sodium (Rocephin) 1 gm in 50 mls @ 100 mls/hr IV Q24H [facility] Dextrose (Dextrose 10%-Water) 250 mls @ 999 mls/hr IV .Q16M PRN; Protocol PRN Reason: HYPOGLYCEMIA Sodium Chloride () 1,000 mls @ 150 mls/hr IV .Q6H40M [facility] Last Admin: 10/21/19 08:37 Dose: 150 mls/hr Documented by: Insulin Human Lispro (Humalog Kwikpen (Bkc)) 0 unit SC ACHS [facility]; Protocol Last Admin: 10/21/19 12:10 Dose: Not Given Documented by: Labetalol HCl (Trandate) 100 mg PO BID [facility] Last Admin: 10/21/19 09:39 Dose: 100 mg Documented by: Melatonin (Melatonin) 3 mg PO QHS PRN PRN PRN Reason: INSOMNIA Morphine Sulfate () 2 mg IV Q3H PRN PRN PRN Reason: Pain Score 6-10/10 Nitroglycerin (Nitrostat) 0.4 mg SUBLINGUAL Q5M PRN PRN Reason: CARDIAC/CHEST PAIN Ondansetron HCl (Zofran) 4 mg IV Q8H PRN PRN PRN Reason: NAUSEA/VOMITING Oxycodone HCl (Oxyir) 5 mg PO Q6H PRN PRN PRN Reason: Pain Score 4-5/10 Last Admin: 10/21/19 12:15 Dose: 5 mg Documented by: Polyethylene Glycol (Miralax) 17 gm PO DAILY [facility] Last Admin: 10/21/19 09:49 Dose: 17 gm Documented by: Prochlorperazine Edisylate (Compazine Iv) 5 mg IV Q4H PRN PRN PRN Reason: Breakthrough Nausea/Vomiting Sodium Chloride () 10 - 40 ml IV UD PRN PRN Reason: SALINE FLUSH Sodium Chloride ([place] Nasal [place]) 2 spray NASAL TID PRN PRN PRN Reason: NASAL DRYNESS Throat Lozenges (Cepacol Sore Throat Lozenge) 1 lozenge MUCOUS MEM Q2H PRN PRN PRN Reason: SORE THROAT STROKE Vital Signs/Narrative: Vital Signs Pulse 10/21/19 11:00 66 Medical Necessity - Tobacco Use Smoking Status: Never smoker Tobacco Use: Non-smoker Assessment/Plan All Active Problems Hyperkalemia (Acute) Hyponatremia (Acute) Acute renal failure (Acute) UTI (urinary tract infection) (Acute) Urinary retention (Acute) 1. UTI * pateint currently on IV ceftriaxone * wbc is down to 13.3, from 15 on admission * urine culturing gram negative rods; speciation pending * 2. Hyponatremia * Sodium was 118 on admission and is now up to 124. * She does appear to have recurrent hyponatremia since September 2019. Sodium in March 2019 was 135. * Serum osmolality is low at 266. Urine osmolality is 176 and urine sodium is 24. * This may be due to dehydration as patient states she was not eating and drinking well in the alf. Her serum chloride was also low. also on HCTZ which is likely a contributory factor * Was hydrated with IV fluid normal saline. * consult nephrology. Continue very gentle hydration with an aim to correct sodium up to around 126 within 24 hours. * * 3. SUJIT * Creatinine was 2.34 on admission and is now down to 1.69 with IV fluid administration. * Baseline creatinine is around 0.78. * Will monitor. * 4. Hypertension: On labetalol, hydralazine and Norvasc. Lisinopril on hold on account of SUJIT. 5. Type 2 diabetes mellitus: On insulin sliding scale. Accu-Cheks AC at bedtime. Home meds on hold. Blood sugar was low at around 69 today. Will monitor. 6. VIN: On CPAP nightly. 7. Chronic normocytic anemia. * Hemoglobin is 11.4 on admission and is now down to 9.9. This is likely due to the effect of the IV fluid she received. * Will monitor. DVT prophylaxis: Heparin Inpatient E&M: [id number] [facility] L3
[2019-10-21 16:05] LABS: Anion Gap 6 (5-15); BUN 46 mg/dL (7-18); BUN/Creat Ratio 29.7 RATIO (10-20); Calcium,Total 8.5 mg/dL (8.5-10.1); Chloride 90 mmol/L (98-107); Creatinine, Serum 1.55 mg/dL (0.55-1.02); EST Glomerular Filtration Rate 34 mL/min (>60); Est Glom Filt Rate - Afr Amer 41 mL/min (>60); Estimated Creatinine Clearance 50.36 ml/min; Glucose 79 mg/dL (74-106); Potassium 5.1 mmol/L (3.5-5.1); Sodium Level 125 mmol/L (136-145)
--- NOTE | 2019-10-21 16:07 | CHAPLAIN ---
Type of Pastoral Visit _x__ Initial Visit ___ Follow-up Visit ___ On-call Visit ___ General Patient Visit ___ Spiritual Assessment ___ Family Conference ___ Bereavement ___ Rapid Response ___ Code Blue ___ Other (describe below) Pastoral Care Referral From __x_ Patient ___ Family ___ Nurse ___ Physician ___ Vice Principal ___ Upper Inspector ___ Other (describe below) Sacrament/Intervention _x__ Active listening ___ Anointing ___ Mu-Ism ___ Bereavement ___ Communion ___ Jenny exploration ___ ___ Life review ___ Prayer ___ Reconciliation ___ Sacrament of Sick ___ Supportive presence ___ Wedding ___ Other (describe below) Pastoral Comments
[2019-10-21 16:18] LABS: Urine Sodium 24 mmol/L (Not Establ.)
[2019-10-21 16:42] LABS: Osmolality, Urine 151 mOsm/KG
--- NOTE | 2019-10-21 16:54 | CON.PCM_ITS ---
Consultation - Renal 10/21/19 PCP/ Referring MD: Requesting physician: Callie Stack MD Primary care physician: Yonis Torres MD Reason for Consultation:: Hyponatremia, SUJIT on CKD - History of Present Illness History of Present Illness: The patient is a 79 year old obese F admitted for abnormal labs. Sodium was low at 118 with creatinine 2.34 on admission. She was recently hospitalized September through October 12 for chronic low back pain then transferred to [facility]. She has sustained compression fracture of her back based on MRI findings couple weeks ago. She has a history of falls. She complains of decreased appetite with increased fatigue. Denies nausea, vomiting, and diarrhea. She admits to trouble swallowing mostly solids. She admitted to dysuria and decreased urinary output. WBC was elevated at 15.3. She denied any fever or chills. She is currently treated with IV fluids and antibiotics for presumptive UTI. She is currently on normal saline at 150 cc/hr. sodium improved from 118 to 125 today and serum creatinine improved from 2.34 to 1.55. Baseline creatinine 0.78 from October 12. She was on lisinopril/HCTZ and Naprosyn at [facility] prior to admission. She has a history of hyponatremia with a sodium low at 124 improved to 133 during last hospitalization.. She states that she has been on a diuretic for hypertension but does not recall the name of the medication. Her medication list from [facility] including HCTZ. She denied any headaches, vision problems. She does have unsteady gait, uses a walker. She has trouble ambulating due to her low back pain. She had received epidural injection about a week ago. She has numbness in her legs. Past medical history is significant for diabetes mellitus type 2, hypertension, hyperlipidemia and anemia. Potassium level was mildly elevated at 5.2. - Allergies Allergies: Allergies Penicillins Allergy (Verified 10/20/19 17:14) Hives - Current Medications Current Medications: Current Medications Acetaminophen (Tylenol) 650 mg PO Q6H PRN PRN PRN Reason: Pain Score 1-10/Temp > 100.7 F Last Admin: 10/21/19 05:14 Dose: 650 mg Documented by: Al Hydroxide/Mg Hydroxide (Mylanta Ii) 30 ml PO Q6H PRN PRN PRN Reason: Gastric Burning Albuterol Sulfate (Ventolin Aerosols) 2.5 mg INHALATION Q2H PRN PRN PRN Reason: SOB/Wheezing Amlodipine Besylate (Norvasc) 10 mg PO DAILY [facility] Last Admin: 10/21/19 09:39 Dose: 10 mg Documented by: Bisacodyl (Dulcolax) 10 mg PO DAILY PRN PRN PRN Reason: Constipation Docusate Sodium (Colace) 200 mg PO BID PRN PRN PRN Reason: Constipation Glucagon () 1 mg IM .X1 PRN PRN Reason: Hypoglycemia Guaifenesin (Robitussin) 20 ml PO Q4H PRN PRN PRN Reason: COUGH Heparin Sodium (Porcine) (Heparin Na) 5,000 unit SC Q12 [facility] Last Admin: 10/21/19 09:39 Dose: 5,000 unit Documented by: Hydralazine HCl (Apresoline) 25 mg PO BID [facility] Last Admin: 10/21/19 09:39 Dose: 25 mg Documented by: Hydralazine HCl (Apresoline Iv) 10 mg IV Q4H PRN PRN PRN Reason: SBP > 160 Ceftriaxone Sodium (Rocephin) 1 gm in 50 mls @ 100 mls/hr IV Q24H [facility] Dextrose (Dextrose 10%-Water) 250 mls @ 999 mls/hr IV .Q16M PRN; Protocol PRN Reason: HYPOGLYCEMIA Sodium Chloride () 1,000 mls @ 150 mls/hr IV .Q6H40M [facility] Last Admin: 10/21/19 15:15 Dose: 150 mls/hr Documented by: Insulin Human Lispro (Humalog Kwikpen (Bkc)) 0 unit SC ACHS [facility]; Protocol Last Admin: 10/21/19 12:10 Dose: Not Given Documented by: Labetalol HCl (Trandate) 100 mg PO BID [facility] Last Admin: 10/21/19 09:39 Dose: 100 mg Documented by: Melatonin (Melatonin) 3 mg PO QHS PRN PRN PRN Reason: INSOMNIA Morphine Sulfate () 2 mg IV Q3H PRN PRN PRN Reason: Pain Score 6-10/10 Nitroglycerin (Nitrostat) 0.4 mg SUBLINGUAL Q5M PRN PRN Reason: CARDIAC/CHEST PAIN Ondansetron HCl (Zofran) 4 mg IV Q8H PRN PRN PRN Reason: NAUSEA/VOMITING Oxycodone HCl (Oxyir) 5 mg PO Q6H PRN PRN PRN Reason: Pain Score 4-5/10 Last Admin: 10/21/19 12:15 Dose: 5 mg Documented by: Polyethylene Glycol (Miralax) 17 gm PO DAILY [facility] Last Admin: 10/21/19 09:49 Dose: 17 gm Documented by: Prochlorperazine Edisylate (Compazine Iv) 5 mg IV Q4H PRN PRN PRN Reason: Breakthrough Nausea/Vomiting Sodium Chloride () 10 - 40 ml IV UD PRN PRN Reason: SALINE FLUSH Sodium Chloride (Mora Nasal [place]) 2 spray NASAL TID PRN PRN PRN Reason: NASAL DRYNESS Throat Lozenges (Cepacol Sore Throat Lozenge) 1 lozenge MUCOUS MEM Q2H PRN PRN PRN Reason: SORE THROAT - Past Medical History Past Medical History (Chronic Problems): Chronic Problems Back pain (Chronic) Essential (primary) hypertension (Chronic) DM2 (diabetes mellitus, type 2) (Chronic) HLD (hyperlipidemia) (Chronic) VIN (obstructive sleep apnea) (Chronic) Morbid obesity (Chronic) - Past Surgical History Surgical History: appendectomy, cholecystectomy, hysterectomy, - - left knee arthroscopic surgery. - Social History Smoking Status: Never smoker Alcohol: None Drugs: None - Family History Paternal History Items: - - Patient notes that her father at age 54, suspected secondary to heart disease complications. Maternal History Items: Hypertension Review of Systems Constitutional: Reports: Anorexia, Weakness, Fatigue. Denies: Chills, Fever HEENT: Reports: Difficulty Swallowing. Denies: Head Aches Cardiovascular: Denies: Chest Pain, Edema Respiratory: Denies: Cough, Shortness of Breath Gastrointestinal: Reports: Constipation - Anorexia, -. Denies: Abdominal Pain, Diarrhea, Nausea, Vomiting Genitourinary: Reports: Dysuria, - - Decreased urinary output Musculoskeletal: Reports: Back Pain - Compression fracture, Shoulder Pain - Left shoulder from remote fall. Denies: Arm Pain Skin: Denies: Rash Neurological: Reports: Balance problems, - - Generalized weakness Psychiatric: Denies: Anxiety, Depression Hematologic/ Lymphatic: Reports: Anemia Patient Problems: Active and Suspected Problems Hyponatremia (Acute) Acute renal failure (Acute) UTI (urinary tract infection) (Acute) Urinary retention (Acute) - Physical Exam Vitals/I&O's: Vital Signs Temp Pulse Resp BP Pulse Ox 97.7 F L 68 18 132/41 H 99 10/21/19 15:30 10/21/19 15:30 10/21/19 15:30 10/21/19 15:30 10/21/19 15:30 Oxygen Flow Rate (L/min) 1 Oxygen Delivery Method Room Air Weight: 110.2 kg Body Mass Index (BMI) 49.0 Intake and Output for Last 24 Hours 10/19/19 10/20/19 10/21/19 23:59 23:59 23:59 Intake Total 550 / 550 4606.67 / 4606.67 Output Total 2300 / 2300 1900 / 1900 Balance -1750 / -1750 2706.67 / 2706.67 General: Alert, Oriented x3, Cooperative, No apparent distress, - HEENT: PERRLA - Obese, EOMI Oral: Dry Mucosa Neck: Supple, No JVD Lungs: Clear to auscultation Cardiovascular: Regular rate, No murmurs Abdomen: Bowel Sounds Present, Soft, Non Tender, Non-Distended, Obese Extremities: No edema Musculoskeletal: No Tenderness to Palpation of Joints or Extremities - Left shoulder pain low back pain, - - Generalized weakness Neurological: Cranial nerves II-XII grossly intact, - - No tremor Psych/Mental Status: Normal Affect, Appropriate, Alert and oriented to time, place, person, mood and affect Microbiology Past 72 Hours 10/20/19 18:51 Urine Catheter - Catheter Urine Culture - Preliminary Gram negative ollie Laboratory Results 10/20/19 11:45: Urine Osmolality 176 10/20/19 11:45: Urine Creatinine 25.70 10/20/19 11:45: Ur Random Sodium 24 10/20/19 17:25: WBC 15.3 H, RBC 3.86 L, Hgb 11.4 L, Hct 33.4 L, MCV 86.5, MCH 29.5, MCHC 34.1, RDW Std Deviation 42.3, RDW Coeff of Lisa 13.5, Plt Count 241, MPV 9.7, Immature Gran % (Auto) 1.900 H, Neut % (Auto) 88.5 H, Lymph % (Auto) 2.3 L, Amador % (Auto) 6.4, Eos % (Auto) 0.6, Baso % (Auto) 0.3, Absolute Neuts (auto) 13.6 H, Absolute Lymphs (auto) 0.35 L, Nucleated RBC % 0, Differential Comment SCANNED 10/20/19 17:25: Sodium 118 L*, Potassium 5.2 H, Chloride 81 L, Carbon Dioxide 30.0, Anion Gap 7, BUN 55 H, Creatinine 2.34 H, Estim Creat Clear Calc 35.60, Est GFR (MDRD) Af Amer 26 L, Est GFR (MDRD) Non-Af 21 L, BUN/Creatinine Ratio 23.5 H, Glucose 214 H, Calcium 9.3 10/20/19 18:51: Urine Color Yellow, Urine Clarity Cloudy, Urine pH 5.0, Ur Specific [place] 1.015, Urine Protein 100 H, Urine Glucose (UA) Normal, Urine Ketones Negative, Urine Occult Blood 250 H, Urine Nitrite Negative, Urine Bilirubin Negative, Urine Urobilinogen Normal, Ur Leukocyte Esterase 500 H, Urine RBC > 100 SEEN, Urine WBC >100 SEEN, Ur Squamous Epith Cells 0 SEEN, Urine Bacteria 4+, Urine Mucus 0 SEEN 10/20/19 22:24: POC Glucose 159 H 10/21/19 00:04: Sodium 120 L, Potassium 5.1, Chloride 84 L, Carbon Dioxide 28.0, Anion Gap 8, BUN 53 H, Creatinine 2.11 H, Estim Creat Clear Calc 36.99, Est GFR (MDRD) Af Amer 29 L, Est GFR (MDRD) Non-Af 24 L, BUN/Creatinine Ratio 25.1 H, Glucose 138 H, Calcium 9.1, TSH 2.10, Free T4 1.56 H 10/21/19 03:20: Sodium 120 L, Potassium 5.0, Chloride 85 L, Carbon Dioxide 26.0, Anion Gap 9, BUN 52 H, Creatinine 1.86 H, Estim Creat Clear Calc 41.97, Est GFR (MDRD) Af Amer 34 L, Est GFR (MDRD) Non-Af 28 L, BUN/Creatinine Ratio 28.0 H, Glucose 120 H, Calcium 8.5 10/21/19 06:50: POC Glucose 65 L 10/21/19 06:58: WBC 13.3 H, RBC 3.42 L, Hgb 9.9 L, Hct 29.1 L, MCV 85.1, MCH 28.9, MCHC 34.0, RDW Std Deviation 42.9, RDW Coeff of Lisa 13.7, Plt Count 206, MPV 9.7, Immature Gran % (Auto) 1.200 H, Neut % (Auto) 87.8 H, Lymph % (Auto) 2.8 L, Amador % (Auto) 7.5, Eos % (Auto) 0.5, Baso % (Auto) 0.2, Absolute Neuts (auto) 11.7 H, Absolute Lymphs (auto) 0.37 L, Nucleated RBC % 0, Differential Comment COMMENT 10/21/19 06:58: Sodium 122 L, Potassium 4.9, Chloride 90 L, Carbon Dioxide 28.0, Anion Gap 4 L, BUN 49 H, Creatinine 1.75 H, Estim Creat Clear Calc 44.60, Est GFR (MDRD) Af Amer 36 L, Est GFR (MDRD) Non-Af 30 L, BUN/Creatinine Ratio 28.0 H , Glucose 65 L, Calcium 8.5 10/21/19 10:50: Sodium 124 L, Potassium 5.1, Chloride 90 L, Carbon Dioxide 29.0, Anion Gap 5, BUN 48 H, Creatinine 1.69 H, Estim Creat Clear Calc 46.19, Est GFR (MDRD) Af Amer 37 L, Est GFR (MDRD) Non-Af 31 L, BUN/Creatinine Ratio 28.4 H, Glucose 90, Calcium 8.5 10/21/19 10:50: Serum Osmolality 266 L 10/21/19 12:09: POC Glucose 69 L 10/21/19 14:56: Sodium 125 L, Potassium 5.1, Chloride 90 L, Carbon Dioxide 29.0, Anion Gap 6, BUN 46 H, Creatinine 1.55 H, Estim Creat Clear Calc 50.36, Est GFR (MDRD) Af Amer 41 L, Est GFR (MDRD) Non-Af 34 L, BUN/Creatinine Ratio 29.7 H, Glucose 79, Calcium 8.5 10/21/19 15:40: Ur Random Sodium 24 10/21/19 15:40: Urine Osmolality 151 Current Medications Acetaminophen (Tylenol) 650 mg PO Q6H PRN PRN PRN Reason: Pain Score 1-10/Temp > 100.7 F Last Admin: 10/21/19 05:14 Dose: 650 mg Documented by: Al Hydroxide/Mg Hydroxide (Mylanta Ii) 30 ml PO Q6H PRN PRN PRN Reason: Gastric Burning Albuterol Sulfate (Ventolin Aerosols) 2.5 mg INHALATION Q2H PRN PRN PRN Reason: SOB/Wheezing Amlodipine Besylate (Norvasc) 10 mg PO DAILY [facility] Last Admin: 10/21/19 09:39 Dose: 10 mg Documented by: Bisacodyl (Dulcolax) 10 mg PO DAILY PRN PRN PRN Reason: Constipation Docusate Sodium (Colace) 200 mg PO BID PRN PRN PRN Reason: Constipation Glucagon () 1 mg IM .X1 PRN PRN Reason: Hypoglycemia Guaifenesin (Robitussin) 20 ml PO Q4H PRN PRN PRN Reason: COUGH Heparin Sodium (Porcine) (Heparin Na) 5,000 unit SC Q12 [facility] Last Admin: 10/21/19 09:39 Dose: 5,000 unit Documented by: Hydralazine HCl (Apresoline) 25 mg PO BID [facility] Last Admin: 10/21/19 09:39 Dose: 25 mg Documented by: Hydralazine HCl (Apresoline Iv) 10 mg IV Q4H PRN PRN PRN Reason: SBP > 160 Ceftriaxone Sodium (Rocephin) 1 gm in 50 mls @ 100 mls/hr IV Q24H [facility] Dextrose (Dextrose 10%-Water) 250 mls @ 999 mls/hr IV .Q16M PRN; Protocol PRN Reason: HYPOGLYCEMIA Sodium Chloride () 1,000 mls @ 150 mls/hr IV .Q6H40M [facility] Last Admin: 10/21/19 15:15 Dose: 150 mls/hr Documented by: Insulin Human Lispro (Humalog Kwikpen (Bkc)) 0 unit SC ACHS [facility]; Protocol Last Admin: 10/21/19 12:10 Dose: Not Given Documented by: Labetalol HCl (Trandate) 100 mg PO BID [facility] Last Admin: 10/21/19 09:39 Dose: 100 mg Documented by: Melatonin (Melatonin) 3 mg PO QHS PRN PRN PRN Reason: INSOMNIA Morphine Sulfate () 2 mg IV Q3H PRN PRN PRN Reason: Pain Score 6-10/10 Nitroglycerin (Nitrostat) 0.4 mg SUBLINGUAL Q5M PRN PRN Reason: CARDIAC/CHEST PAIN Ondansetron HCl (Zofran) 4 mg IV Q8H PRN PRN PRN Reason: NAUSEA/VOMITING Oxycodone HCl (Oxyir) 5 mg PO Q6H PRN PRN PRN Reason: Pain Score 4-5/10 Last Admin: 10/21/19 12:15 Dose: 5 mg Documented by: Polyethylene Glycol (Miralax) 17 gm PO DAILY [facility] Last Admin: 10/21/19 09:49 Dose: 17 gm Documented by: Prochlorperazine Edisylate (Compazine Iv) 5 mg IV Q4H PRN PRN PRN Reason: Breakthrough Nausea/Vomiting Sodium Chloride () 10 - 40 ml IV UD PRN PRN Reason: SALINE FLUSH Sodium Chloride (Mora Nasal [place]) 2 spray NASAL TID PRN PRN PRN Reason: NASAL DRYNESS Throat Lozenges (Cepacol Sore Throat Lozenge) 1 lozenge MUCOUS MEM Q2H PRN PRN PRN Reason: SORE THROAT Assessment/Plan All Active Problems Hyponatremia (Acute) Acute renal failure (Acute) UTI (urinary tract infection) (Acute) Urinary retention (Acute) 1. Hyponatremia with serum sodium 118 on admission improved to 125 today. Urine osmolarity 151, urine sodium 24. Suspect due to prerenal event, dehydration. Continue with normal saline at 100 cc an hour. Sodium improved from 1 18-1 25. Will check cortisol level for adrenal insufficiency in the presence of hyperkalemia along with hyponatremia. However I suspect the hyperkalemia was due to renal failure, KASEY inhibitor and hyporenin hypoaldo state due to NSAIDs. TSH was normal. Would hold further thiazide diuretic use in the future. Serum sodium level has been stable/normal back in March 2019 at 135. Sodium 132 from September 17, 2019. 2. Acute kidney injury likely due to dehydration with poor intake, UTI and due to medications including NSAIDs, thiazide diuretic, and KASEY inhibitor therapy. Creatinine 2.34 improved to 1.55 with IV hydration. Continue to refrain from NSAID use. Hold KASEY inhibitor therapy as you are doing. Baseline creatinine 0.78 from October 12. 3. DM type II primary service management 4. Hypertension stable blood pressure 5. Chronic low back pain due to history of compression fracture. 6. Hyperkalemia suspect due to NSAIDs, KASEY inhibitor, acute kidney injury. 7. Morbid obesity. 8. UTI with gram-negative rods continue IV antibiotics. Leukocytosis improving.
[2019-10-21 18:15] LABS: Bedside Glucose 58 mg/dL (70-110)
[2019-10-21 19:34] LABS: Anion Gap 6 (5-15); BUN 43 mg/dL (7-18); BUN/Creat Ratio 30.3 RATIO (10-20); Calcium,Total 8.8 mg/dL (8.5-10.1); Chloride 92 mmol/L (98-107); Creatinine, Serum 1.42 mg/dL (0.55-1.02); EST Glomerular Filtration Rate 38 mL/min (>60); Est Glom Filt Rate - Afr Amer 46 mL/min (>60); Estimated Creatinine Clearance 54.97 ml/min; Glucose 88 mg/dL (74-106); Sodium Level 126 mmol/L (136-145)
[2019-10-21] MEDS: Ceftriaxone 1 GM/50 ML BAG IV (21:30)
[2019-10-21 21:50] LABS: Bedside Glucose 110 mg/dL (70-110)
[2019-10-21 23:05] LABS: Anion Gap 5 (5-15); BUN 42 mg/dL (7-18); BUN/Creat Ratio 31.8 RATIO (10-20); Calcium,Total 8.6 mg/dL (8.5-10.1); Chloride 94 mmol/L (98-107); Creatinine, Serum 1.32 mg/dL (0.55-1.02); EST Glomerular Filtration Rate 41 mL/min (>60); Est Glom Filt Rate - Afr Amer 50 mL/min (>60); Estimated Creatinine Clearance 59.14 ml/min; Glucose 105 mg/dL (74-106); Potassium 5.4 mmol/L (3.5-5.1); Sodium Level 127 mmol/L (136-145)
[2019-10-22] VITALS (11 sets, daily range): BP systolic 132–171; BP diastolic 51–82; PULSE 67–76; RESP 16–18; TEMP 36.6–37.4; O2SAT 91–96
[2019-10-22] MEDS: 0.9% Normal Saline 1,000 ML 150 ML IV ×2 (05:21→13:10)
[2019-10-22 06:35] LABS: Bedside Glucose 65 mg/dL (70-110)
[2019-10-22] MEDS: oxyCODONE 5 MG Tablet PO ×2 (06:37→13:08)
[2019-10-22 07:06] LABS: Bedside Glucose 82 mg/dL (70-110)
--- NOTE | 2019-10-22 08:00 | US_ITS ---
STUDY: RENAL ULTRASOUND - COMPLETE REASON FOR EXAM: Female, 79 years old. tony TECHNIQUE: Ultrasound evaluation of the kidneys was performed with real-time and static haro-scale imaging. COMPARISON: None. FINDINGS: The study is technically limited secondary to patient obesity. RIGHT KIDNEY: Normal location of the right kidney, which is normal in size. The right kidney measures 10.5 x 4.9 x 5.6 cm. There is a normal cortex of the right kidney. The renal cortex measures 1.5 cm. There is no right renal mass or cyst. There are no right renal calculi. There is no right hydronephrosis. DISTAL RIGHT URETER: There is non-visualization of the distal right ureter. There is no demonstrated right ureterovesical junction calculus. There is no demonstrated right ureteral jet. LEFT KIDNEY: Normal location of the left kidney, which is normal in size. The left kidney measures 12.4 x 5.0 x 6.2 cm. There is a normal cortex of the left kidney. The renal cortex measures 1.9 cm. There is no left renal mass or cyst. There are no left renal calculi. There is no left hydronephrosis. DISTAL LEFT URETER: There is non-visualization of the distal left ureter. There is no demonstrated left ureterovesical junction calculus. There is no demonstrated left ureteral jet. BLADDER: A Canela catheter is present within a decompressed urinary bladder. US/Kidney and Bladder IMPRESSION: Limited study secondary to patient obesity. The kidneys appear within normal limits. Canela catheter seen within a decompressed urinary bladder. Electronically Signed: Kamlesh Corado MD at 17:07 EDT , Service support ,
[2019-10-22 10:40] LABS: Absolute Neutrophil Count 9.4 X10^3/uL (2.0-7.7); Basophil# 0.03 X10^3/uL; Basophil% 0.3 % (0-1); Eosinophil# 0.05 X10^3/uL; Eosinophils% 0.4 % (0-5); Hematocrit 29.7 % (37-47); Hemoglobin 9.9 g/dL (12.0-15.0); Lymphocyte % 6.3 % (19-41); Mean Corp Hgb Conc 33.3 g/dL (32-36); Mean Corpuscular Volume 87.1 fL (81-99); Mean Platelet Vol. 9.6 fl (6.2-12.0); Monocyte# 0.81 X10^3/uL; Monocyte% 7.2 % (0-10); NRBC Flagged by Analyzer 0 % (0-5); Neutrophil # 9.37 X10^3/uL (2.7-7.7); Neutrophil % 83.7 % (47-70); Platelet Count 230 K/mm3 (150-450); RBC Distribution Width CV 13.9 % (11.6-14.6); RBC Distribution Width SD 44.6 fl (35.1-43.9); Red Blood Count 3.41 M/mm3 (4.2-5.4); White Blood Count 11.2 K/mm3 (4.4-11.0)
[2019-10-22] MEDS: hydrALAZINE 25 MG Tablet PO ×2 (10:51→21:06)
[2019-10-22] MEDS: amLODIPine 10 MG Tablet PO (10:54)
[2019-10-22] MEDS: Labetalol 100 MG Tablet PO ×2 (10:54→21:07)
[2019-10-22] MEDS: Polyethylene Glycol 3350 17 GM PACKET PO (10:54)
[2019-10-22] MEDS: Heparin Injection (Vial) 5,000 UNIT/ML VIAL 5000 UNIT SC ×2 (10:54→21:06)
[2019-10-22 11:16] LABS: Anion Gap 6 (5-15); BUN 34 mg/dL (7-18); BUN/Creat Ratio 33.3 RATIO (10-20); Calcium,Total 8.6 mg/dL (8.5-10.1); Chloride 97 mmol/L (98-107); Creatinine, Serum 1.02 mg/dL (0.55-1.02); EST Glomerular Filtration Rate 55 mL/min (>60); Est Glom Filt Rate - Afr Amer 67 mL/min (>60); Estimated Creatinine Clearance 76.53 ml/min; Glucose 140 mg/dL (74-106); Potassium 5.2 mmol/L (3.5-5.1); Sodium Level 128 mmol/L (136-145)
[2019-10-22 12:01] LABS: Bedside Glucose 131 mg/dL (70-110)
--- NOTE | 2019-10-22 14:30 | PN_ITS ---
Patient Problems: Active and Suspected Problems Hyperkalemia (Acute) Hyponatremia (Acute) Acute renal failure (Acute) UTI (urinary tract infection) (Acute) Urinary retention (Acute) Subjective: Doing well, no issues overnight. She still has some burning with urination, denies any lightheadedness or dizziness Vitals/I&O's: Vital Signs Temp Pulse Resp BP Pulse Ox 99.3 F H 72 18 171/64 H 94 10/22/19 09:20 10/22/19 10:51 10/22/19 09:20 10/22/19 10:51 10/22/19 09:20 Oxygen Flow Rate (L/min) 2 Oxygen Delivery Method Room Air Weight: 242 lb 15.19 oz Body Mass Index (BMI) 49.0 Intake and Output for Last 24 Hours 10/20/19 10/21/19 10/22/19 23:59 23:59 23:59 Intake Total 550 / 550 6201.67 / 6201.67 1870.0 / 1870.0 Output Total 2300 / 2300 4900 / 4900 1050 / 1050 Balance -1750 / -1750 1301.67 / 1301.67 820.0 / 820.0 General: Alert, Oriented x3, Cooperative, No apparent distress HEENT: Atraumatic, PERRLA, EOMI, Normocephalic Oral: Moist Mucosa Neck: Supple, No JVD Lungs: Clear to auscultation, Normal air movement, No rhonchi, No wheeze, No rales, Diminished Cardiovascular: Regular rate, Regular Rhythm, Normal S1, Normal S2, No murmurs Abdomen: Soft, Non Tender, Non-Distended, No Hepato-splenomegaly Extremities: No edema, Capillary Refill Less than 3 Seconds Skin: No rashes, No breakdown Neurological: Neuro grossly intact, Sensory exam intact to light touch and pain Psych/Mental Status: Normal Affect, Appropriate Microbiology Past 72 Hours 10/20/19 18:51 Urine Catheter - Catheter Urine Culture - Final Citrobacter koseri Laboratory Results 10/21/19 14:56: Sodium 125 L, Potassium 5.1, Chloride 90 L, Carbon Dioxide 29.0, Anion Gap 6, BUN 46 H, Creatinine 1.55 H, Estim Creat Clear Calc 50.36, Est GFR (MDRD) Af Amer 41 L, Est GFR (MDRD) Non-Af 34 L, BUN/Creatinine Ratio 29.7 H, Glucose 79, Calcium 8.5 10/21/19 15:40: Ur Random Sodium 24 10/21/19 15:40: Urine Osmolality 151 10/21/19 17:34: POC Glucose 58 L 10/21/19 18:45: Sodium 126 L, Potassium 5.0, Chloride 92 L, Carbon Dioxide 28.0, Anion Gap 6, BUN 43 H, Creatinine 1.42 H, Estim Creat Clear Calc 54.97, Est GFR (MDRD) Af Amer 46 L, Est GFR (MDRD) Non-Af 38 L, BUN/Creatinine Ratio 30.3 H, Glucose 88, Calcium 8.8 10/21/19 20:02: Cortisol 11.50 10/21/19 21:22: POC Glucose 110 10/21/19 21:25: Sodium 127 L, Potassium 5.4 H, Chloride 94 L, Carbon Dioxide 28.0, Anion Gap 5, BUN 42 H, Creatinine 1.32 H, Estim Creat Clear Calc 59.14, Est GFR (MDRD) Af Amer 50 L, Est GFR (MDRD) Non-Af 41 L, BUN/Creatinine Ratio 31.8 H, Glucose 105, Calcium 8.6 10/22/19 06:32: POC Glucose 65 L 10/22/19 06:56: POC Glucose 82 10/22/19 10:20: Cortisol 8.00 10/22/19 10:20: WBC 11.2 H, RBC 3.41 L, Hgb 9.9 L, Hct 29.7 L, MCV 87.1, MCH 29.0, MCHC 33.3, RDW Std Deviation 44.6 H, RDW Coeff of Lisa 13.9, Plt Count 230, MPV 9.6, Immature Gran % (Auto) 2.100 H, Neut % (Auto) 83.7 H, Lymph % (Auto) 6.3 L, Pickett % (Auto) 7.2, Eos % (Auto) 0.4, Baso % (Auto) 0.3, Absolute Neuts (auto) 9.4 H, Absolute Lymphs (auto) 0.70 L, Nucleated RBC % 0 10/22/19 10:20: Sodium 128 L, Potassium 5.2 H, Chloride 97 L, Carbon Dioxide 25.0, Anion Gap 6, BUN 34 H, Creatinine 1.02, Estim Creat Clear Calc 76.53, Est GFR (MDRD) Af Amer 67, Est GFR (MDRD) Non-Af 55 L, BUN/Creatinine Ratio 33.3 H, Glucose 140 H, Calcium 8.6 10/22/19 10:59: POC Glucose 131 H Current Medications Acetaminophen (Tylenol) 650 mg PO Q6H PRN PRN PRN Reason: Pain Score 1-10/Temp > 100.7 F Last Admin: 10/21/19 05:14 Dose: 650 mg Documented by: Al Hydroxide/Mg Hydroxide (Mylanta Ii) 30 ml PO Q6H PRN PRN PRN Reason: Gastric Burning Albuterol Sulfate (Ventolin Aerosols) 2.5 mg INHALATION Q2H PRN PRN PRN Reason: SOB/Wheezing Amlodipine Besylate (Norvasc) 10 mg PO DAILY [facility] Last Admin: 10/22/19 10:54 Dose: 10 mg Documented by: Bisacodyl (Dulcolax) 10 mg PO DAILY PRN PRN PRN Reason: Constipation Docusate Sodium (Colace) 200 mg PO BID PRN PRN PRN Reason: Constipation Glucagon () 1 mg IM .X1 PRN PRN Reason: Hypoglycemia Guaifenesin (Robitussin) 20 ml PO Q4H PRN PRN PRN Reason: COUGH Heparin Sodium (Porcine) (Heparin Na) 5,000 unit SC Q12 [facility] Last Admin: 10/22/19 10:54 Dose: 5,000 unit Documented by: Hydralazine HCl (Apresoline) 25 mg PO BID [facility] Last Admin: 10/22/19 10:51 Dose: 25 mg Documented by: Hydralazine HCl (Apresoline Iv) 10 mg IV Q4H PRN PRN PRN Reason: SBP > 160 [facility] Ceftriaxone Sodium (Rocephin) 1 gm in 50 mls @ 100 mls/hr IV Q24H [facility] Last Infusion: 10/21/19 22:00 Dose: Infused Documented by: Dextrose (Dextrose 10%-Water) 250 mls @ 999 mls/hr IV .Q16M PRN; Protocol PRN Reason: HYPOGLYCEMIA Sodium Chloride () 1,000 mls @ 150 mls/hr IV .Q6H40M [facility] Last Admin: 10/22/19 13:10 Dose: 150 mls/hr Documented by: Insulin Human Lispro (Humalog Kwikpen (Bkc)) 0 unit SC ACHS [facility]; Protocol Last Admin: 10/22/19 11:00 Dose: Not Given Documented by: Labetalol HCl (Trandate) 100 mg PO BID [facility] Last Admin: 10/22/19 10:54 Dose: 100 mg Documented by: Melatonin (Melatonin) 3 mg PO QHS PRN PRN PRN Reason: INSOMNIA Morphine Sulfate () 2 mg IV Q3H PRN PRN PRN Reason: Pain Score 6-10/10 Nitroglycerin (Nitrostat) 0.4 mg SUBLINGUAL Q5M PRN PRN Reason: CARDIAC/CHEST PAIN Ondansetron HCl (Zofran) 4 mg IV Q8H PRN PRN PRN Reason: NAUSEA/VOMITING Oxycodone HCl (Oxyir) 5 mg PO Q6H PRN PRN PRN Reason: Pain Score 4-5/10 Last Admin: 10/22/19 13:08 Dose: 5 mg Documented by: Polyethylene Glycol (Miralax) 17 gm PO DAILY [facility] Last Admin: 10/22/19 10:54 Dose: 17 gm Documented by: Prochlorperazine Edisylate (Compazine Iv) 5 mg IV Q4H PRN PRN PRN Reason: Breakthrough Nausea/Vomiting Sodium Chloride () 10 - 40 ml IV UD PRN PRN Reason: SALINE FLUSH Sodium Chloride ([place] Nasal [place]) 2 spray NASAL TID PRN PRN PRN Reason: NASAL DRYNESS Throat Lozenges (Cepacol Sore Throat Lozenge) 1 lozenge MUCOUS MEM Q2H PRN PRN PRN Reason: SORE THROAT STROKE Vital Signs/Narrative: Vital Signs Pulse BP 10/22/19 10:51 72 171/64 H Medical Necessity - Tobacco Use Smoking Status: Never smoker Tobacco Use: Non-smoker Assessment/Plan All Active Problems Hyperkalemia (Acute) Hyponatremia (Acute) Acute renal failure (Acute) UTI (urinary tract infection) (Acute) Urinary retention (Acute) 1. UTI secondary to urinary retention leading to SUJIT/adrenal insufficiency -Continue with Rocephin, urine cultures pending -Creatinine has completely resolved however she is still hyperkalemic, her hyponatremia has resolved however -Appreciate nephrology's input, morning cortisol is lower than last night's cortisol therefore will continue with hydrocortisone, and will monitor -She is from a nursing home facility and she would like to go to TCU, pre- CERT is pending 2. HTN/HLD/morbid obesity -BMI is 49.1, lifestyle modifications were discussed -We will hold her lisinopril and will not resume on discharge -She is not on any cholesterol medications -Continue with Norvasc and labetalol 3. DM 2 -Hold her oral medications and continue with sliding scale insulin -He checks AC at bedtime 4. Chronic normocytic anemia -Hemoglobin is around 11 at baseline, she is currently at 9.9 secondary to the IV fluid she received -Will monitor DVT: Heparin Inpatient E&M: 58545 Subs Hosp L2
--- NOTE | 2019-10-22 14:32 | PCM.PN.REN ---
Patient Problems: Active and Suspected Problems Hyperkalemia (Acute) Hyponatremia (Acute) Acute renal failure (Acute) UTI (urinary tract infection) (Acute) Urinary retention (Acute) Subjective: still with back pain, fatigue. No nausea, vomiting - Physical Exam Vitals/I&O's: Vital Signs Temp Pulse Resp BP Pulse Ox 99.3 F H 72 18 171/64 H 94 10/22/19 09:20 10/22/19 10:51 10/22/19 09:20 10/22/19 10:51 10/22/19 09:20 Oxygen Flow Rate (L/min) 2 Oxygen Delivery Method Room Air Weight: 110.2 kg Body Mass Index (BMI) 49.0 Intake and Output for Last 24 Hours 10/20/19 10/21/19 10/22/19 23:59 23:59 23:59 Intake Total 550 / 550 6201.67 / 6201.67 1870.0 / 1870.0 Output Total 2300 / 2300 4900 / 4900 1050 / 1050 Balance -1750 / -1750 1301.67 / 1301.67 820.0 / 820.0 General: Alert, Oriented x3, Cooperative Lungs: Clear to auscultation Cardiovascular: Regular rate Abdomen: Bowel Sounds Present, Soft, Non Tender, Non-Distended Extremities: No edema Psych/Mental Status: Normal Affect, Appropriate, Alert and oriented to time, place, person, mood and affect Microbiology Past 72 Hours 10/20/19 18:51 Urine Catheter - Catheter Urine Culture - Final Citrobacter koseri Laboratory Results 10/21/19 14:56: Sodium 125 L, Potassium 5.1, Chloride 90 L, Carbon Dioxide 29.0, Anion Gap 6, BUN 46 H, Creatinine 1.55 H, Estim Creat Clear Calc 50.36, Est GFR (MDRD) Af Amer 41 L, Est GFR (MDRD) Non-Af 34 L, BUN/Creatinine Ratio 29.7 H, Glucose 79, Calcium 8.5 10/21/19 15:40: Ur Random Sodium 24 10/21/19 15:40: Urine Osmolality 151 10/21/19 17:34: POC Glucose 58 L 10/21/19 18:45: Sodium 126 L, Potassium 5.0, Chloride 92 L, Carbon Dioxide 28.0, Anion Gap 6, BUN 43 H, Creatinine 1.42 H, Estim Creat Clear Calc 54.97, Est GFR (MDRD) Af Amer 46 L, Est GFR (MDRD) Non-Af 38 L, BUN/Creatinine Ratio 30.3 H, Glucose 88, Calcium 8.8 10/21/19 20:02: Cortisol 11.50 10/21/19 21:22: POC Glucose 110 10/21/19 21:25: Sodium 127 L, Potassium 5.4 H, Chloride 94 L, Carbon Dioxide 28.0, Anion Gap 5, BUN 42 H, Creatinine 1.32 H, Estim Creat Clear Calc 59.14, Est GFR (MDRD) Af Amer 50 L, Est GFR (MDRD) Non-Af 41 L, BUN/Creatinine Ratio 31.8 H, Glucose 105, Calcium 8.6 10/22/19 06:32: POC Glucose 65 L 10/22/19 06:56: POC Glucose 82 10/22/19 10:20: Cortisol 8.00 10/22/19 10:20: WBC 11.2 H, RBC 3.41 L, Hgb 9.9 L, Hct 29.7 L, MCV 87.1, MCH 29.0, MCHC 33.3, RDW Std Deviation 44.6 H, RDW Coeff of Lisa 13.9, Plt Count 230, MPV 9.6, Immature Gran % (Auto) 2.100 H, Neut % (Auto) 83.7 H, Lymph % (Auto) 6.3 L, [place] % (Auto) 7.2, Eos % (Auto) 0.4, Baso % (Auto) 0.3, Absolute Neuts (auto) 9.4 H, Absolute Lymphs (auto) 0.70 L, Nucleated RBC % 0 10/22/19 10:20: Sodium 128 L, Potassium 5.2 H, Chloride 97 L, Carbon Dioxide 25.0, Anion Gap 6, BUN 34 H, Creatinine 1.02, Estim Creat Clear Calc 76.53, Est GFR (MDRD) Af Amer 67, Est GFR (MDRD) Non-Af 55 L, BUN/Creatinine Ratio 33.3 H, Glucose 140 H, Calcium 8.6 10/22/19 10:59: POC Glucose 131 H Current Medications Acetaminophen (Tylenol) 650 mg PO Q6H PRN PRN PRN Reason: Pain Score 1-10/Temp > 100.7 F Last Admin: 10/21/19 05:14 Dose: 650 mg Documented by: Al Hydroxide/Mg Hydroxide (Mylanta Ii) 30 ml PO Q6H PRN PRN PRN Reason: Gastric Burning Albuterol Sulfate (Ventolin Aerosols) 2.5 mg INHALATION Q2H PRN PRN PRN Reason: SOB/Wheezing Amlodipine Besylate (Norvasc) 10 mg PO DAILY [facility] Last Admin: 10/22/19 10:54 Dose: 10 mg Documented by: Bisacodyl (Dulcolax) 10 mg PO DAILY PRN PRN PRN Reason: Constipation Docusate Sodium (Colace) 200 mg PO BID PRN PRN PRN Reason: Constipation Glucagon () 1 mg IM .X1 PRN PRN Reason: Hypoglycemia Guaifenesin (Robitussin) 20 ml PO Q4H PRN PRN PRN Reason: COUGH Heparin Sodium (Porcine) (Heparin Na) 5,000 unit SC Q12 [facility] Last Admin: 10/22/19 10:54 Dose: 5,000 unit Documented by: Hydralazine HCl (Apresoline) 25 mg PO BID [facility] Last Admin: 10/22/19 10:51 Dose: 25 mg Documented by: Hydralazine HCl (Apresoline Iv) 10 mg IV Q4H PRN PRN PRN Reason: SBP > 160 Hydrocortisone (Cortef) 5 [facility] [place] Ceftriaxone Sodium (Rocephin) 1 gm in 50 mls @ 100 mls/hr IV Q24H [facility] Last Infusion: 10/21/19 22:00 Dose: Infused Documented by: Dextrose (Dextrose 10%-Water) 250 mls @ 999 mls/hr IV .Q16M PRN; Protocol PRN Reason: HYPOGLYCEMIA Sodium Chloride () 1,000 mls @ 150 mls/hr IV .Q6H40M [facility] Last Admin: 10/22/19 13:10 Dose: 150 mls/hr Documented by: Insulin Human Lispro (Humalog Kwikpen (Bkc)) 0 unit SC ACHS [facility]; Protocol Last Admin: 10/22/19 11:00 Dose: Not Given Documented by: Labetalol HCl (Trandate) 100 mg PO BID [facility] Last Admin: 10/22/19 10:54 Dose: 100 mg Documented by: Melatonin (Melatonin) 3 mg PO QHS PRN PRN PRN Reason: INSOMNIA Morphine Sulfate () 2 mg IV Q3H PRN PRN PRN Reason: Pain Score 6-10/10 Nitroglycerin (Nitrostat) 0.4 mg SUBLINGUAL Q5M PRN PRN Reason: CARDIAC/CHEST PAIN Ondansetron HCl (Zofran) 4 mg IV Q8H PRN PRN PRN Reason: NAUSEA/VOMITING Oxycodone HCl (Oxyir) 5 mg PO Q6H PRN PRN PRN Reason: Pain Score 4-5/10 Last Admin: 10/22/19 13:08 Dose: 5 mg Documented by: Polyethylene Glycol (Miralax) 17 gm PO DAILY [facility] Last Admin: 10/22/19 10:54 Dose: 17 gm Documented by: Prochlorperazine Edisylate (Compazine Iv) 5 mg IV Q4H PRN PRN PRN Reason: Breakthrough Nausea/Vomiting Sodium Chloride () 10 - 40 ml IV UD PRN PRN Reason: SALINE FLUSH Sodium Chloride ([place] Nasal [place]) 2 spray NASAL TID PRN PRN PRN Reason: NASAL DRYNESS Throat Lozenges (Cepacol Sore Throat Lozenge) 1 lozenge MUCOUS MEM Q2H PRN PRN PRN Reason: SORE THROAT Medical Necessity - Tobacco Use Smoking Status: Never smoker Tobacco Use: Non-smoker Assessment/Plan All Active Problems Hyperkalemia (Acute) Hyponatremia (Acute) Acute renal failure (Acute) UTI (urinary tract infection) (Acute) Urinary retention (Acute) 1. Hyponatremia with serum sodium 118 on admission improved to 128 today. Decrease iv rate. Am/Pm cortisol low. Suggest low dose cortisol for possible adrenal insuff. Potassium still remains elevated despite discontinuation of NSAIDs and ACEI. Continue to hold HCTZ. 2. Acute kidney injury due to dehydration with poor intake, medications. Creatinine improved to 1.0 today. Baseline creatinine 0.78 from October 12. 3. DM type II primary service management 4. Hypertension increase hydralazine to tid 5. Chronic low back pain due to history of compression fracture. 6. Hyperkalemia persistent despite improved renal fxn. Start cortef for possible adrenal insuff 7. Morbid obesity. 8. UTI continue antibiotics.
[2019-10-22] MEDS: Morphine 2 MG/ML Syringe IV (15:50)
--- NOTE | 2019-10-22 16:11 | NURSING ---
Cass director of [facility] called to notify of denial of insurance. Dr. Vizcarra notified of denial and peer to peer number to call [phone] Reference number of [id number] and that he has until 12nofriday to appeal.
[2019-10-22 17:06] LABS: Bedside Glucose 120 mg/dL (70-110)
[2019-10-22] MEDS: Hydrocortisone 10 MG Tablet 5 MG PO (18:28)
[2019-10-22] MEDS: Ceftriaxone 1 GM/50 ML BAG IV (21:04)
[2019-10-22 21:31] LABS: Bedside Glucose 130 mg/dL (70-110)
[2019-10-23] VITALS (16 sets, daily range): BP systolic 136–154; BP diastolic 48–71; PULSE 61–77; RESP 16–18; TEMP 36.6–37.2; O2SAT 92–96
[2019-10-23] MEDS: 0.9% Normal Saline 1,000 ML 75 ML IV (01:06)
[2019-10-23] MEDS: oxyCODONE 5 MG Tablet PO ×3 (01:06→21:17)
[2019-10-23] MEDS: Morphine 2 MG/ML Syringe IV (05:19)
[2019-10-23] MEDS: 0.9% Saline Lock 10 ML Syringe IV ×2 (05:20→21:25)
[2019-10-23] MEDS: hydrALAZINE 25 MG Tablet PO ×3 (05:20→21:18)
[2019-10-23 06:41] LABS: Bedside Glucose 123 mg/dL (70-110)
[2019-10-23 06:57] LABS: Albumin, Serum 1.6 g/dL (3.2-5.0); BUN 26 mg/dL (7-18); BUN/Creat Ratio 28.9 RATIO (10-20); Calcium,Total 8.7 mg/dL (8.5-10.1); Chloride 100 mmol/L (98-107); EST Glomerular Filtration Rate 64 mL/min (>60); Est Glom Filt Rate - Afr Amer 78 mL/min (>60); Estimated Creatinine Clearance 86.73 ml/min; Glucose 129 mg/dL (74-106); Phosphorus 2.5 mg/dL (2.5-4.9); Potassium 5.1 mmol/L (3.5-5.1); Sodium Level 132 mmol/L (136-145)
[2019-10-23] MEDS: Hydrocortisone 10 MG Tablet 5 MG PO ×2 (08:10→16:04)
[2019-10-23] MEDS: Heparin Injection (Vial) 5,000 UNIT/ML VIAL 5000 UNIT SC ×2 (08:11→21:18)
[2019-10-23] MEDS: amLODIPine 10 MG Tablet PO (08:12)
[2019-10-23] MEDS: Labetalol 100 MG Tablet PO ×2 (08:12→21:18)
[2019-10-23] MEDS: Polyethylene Glycol 3350 17 GM PACKET PO (08:15)
[2019-10-23] MEDS: Insulin Lispro 100 UNIT/ML INSULN.PEN SC ×3 (11:03→21:18)
[2019-10-23 11:06] LABS: Bedside Glucose 184 mg/dL (70-110)
--- NOTE | 2019-10-23 13:30 | PCM.PN.HOSP ---
Patient Problems: Active and Suspected Problems Hyperkalemia (Acute) Hyponatremia (Acute) Acute renal failure (Acute) UTI (urinary tract infection) (Acute) Urinary retention (Acute) Subjective: Doing well, no issues overnight Vitals/I&O's: Vital Signs Temp Pulse Resp BP Pulse Ox 98.4 F 73 18 141/62 H 93 10/23/19 11:00 10/23/19 12:32 10/23/19 11:00 10/23/19 11:00 10/23/19 11:00 Oxygen Flow Rate (L/min) 2 Oxygen Delivery Method Room Air Weight: 242 lb 15.19 oz Body Mass Index (BMI) 49.0 Intake and Output for Last 24 Hours 10/21/19 10/22/19 10/23/19 23:59 23:59 23:59 Intake Total 6201.67 / 6201.67 3301.25 / 3301.25 1090.00 / 1090.00 Output Total 4900 / 4900 3850 / 3850 1999 / 1999 Balance 1301.67 / 1301.67 -548.75 / -548.75 -910.00 / -910.00 General: Alert, Oriented x3, Cooperative, No apparent distress HEENT: Atraumatic, PERRLA, EOMI, Normocephalic Oral: Moist Mucosa Neck: Supple, No JVD Lungs: Clear to auscultation, Normal air movement, No rhonchi, No wheeze, No rales, Diminished Cardiovascular: Regular rate, Regular Rhythm, Normal S1, Normal S2, No murmurs Abdomen: Soft, Non Tender, Non-Distended, No Hepato-splenomegaly Extremities: No edema, Capillary Refill Less than 3 Seconds Skin: No rashes, No breakdown Neurological: Neuro grossly intact, Sensory exam intact to light touch and pain Psych/Mental Status: Normal Affect, Appropriate Microbiology Past 72 Hours 10/20/19 18:51 Urine Catheter - Catheter Urine Culture - Final Citrobacter koseri Laboratory Results 10/22/19 16:58: POC Glucose 120 H 10/22/19 21:02: POC Glucose 130 H 10/23/19 05:53: Sodium 132 L, Potassium 5.1, Chloride 100, Carbon Dioxide 26.0, BUN 26 H, Creatinine 0.90, Estim Creat Clear Calc 86.73, Est GFR (MDRD) Af Amer 78, Est GFR (MDRD) Non-Af 64, BUN/Creatinine Ratio 28.9 H, Glucose 129 H, Calcium 8.7, Phosphorus 2.5, Albumin 1.6 L 10/23/19 06:36: POC Glucose 123 H 10/23/19 10:56: POC Glucose 184 H Current Medications Acetaminophen (Tylenol) 650 mg PO Q6H PRN PRN PRN Reason: Pain Score 1-10/Temp > 100.7 F Last Admin: 10/21/19 05:14 Dose: 650 mg Documented by: Al Hydroxide/Mg Hydroxide (Mylanta Ii) 30 ml PO Q6H PRN PRN PRN Reason: Gastric Burning Albuterol Sulfate (Ventolin Aerosols) 2.5 mg INHALATION Q2H PRN PRN PRN Reason: SOB/Wheezing Amlodipine Besylate (Norvasc) 10 mg PO DAILY [facility] Last Admin: 10/23/19 08:12 Dose: 10 mg Documented by: Bisacodyl (Dulcolax) 10 mg PO DAILY PRN PRN PRN Reason: Constipation Docusate Sodium (Colace) 200 mg PO BID PRN PRN PRN Reason: Constipation Glucagon () 1 mg IM .X1 PRN PRN Reason: Hypoglycemia Guaifenesin (Robitussin) 20 ml PO Q4H PRN PRN PRN Reason: COUGH Heparin Sodium (Porcine) (Heparin Na) 5,000 unit SC Q12 [facility] Last Admin: 10/23/19 08:11 Dose: 5,000 unit Documented by: Hydralazine HCl (Apresoline Iv) 10 mg IV Q4H PRN PRN PRN Reason: SBP > 160 Hydralazine HCl (Apresoline) 25 mg PO TID [facility] Last Admin: 10/23/19 05:20 Dose: 25 mg Documented by: Hydrocortisone (Cortef) 5 mg PO BIDCM [facility] Last Admin: 10/23/19 08:10 Dose: 5 mg Documented by: Ceftriaxone Sodium (Rocephin) 1 gm in 50 mls @ 100 mls/hr IV Q24H [facility] Last Infusion: 10/22/19 21:34 Dose: Infused Documented by: Dextrose (Dextrose 10%-Water) 250 mls @ 999 mls/hr IV .Q16M PRN; Protocol PRN Reason: HYPOGLYCEMIA Insulin Human Lispro (Humalog Kwikpen (Bkc)) 0 unit SC ACHS [facility]; Protocol Last Admin: 10/23/19 11:03 Dose: 1 u Documented by: Labetalol HCl (Trandate) 100 mg PO BID [facility] Last Admin: 10/23/19 08:12 Dose: 100 mg Documented by: Melatonin (Melatonin) 3 mg PO QHS PRN PRN PRN Reason: INSOMNIA Morphine Sulfate () 2 mg IV Q3H PRN PRN PRN Reason: Pain Score 6-10/10 Last Admin: 10/23/19 05:19 Dose: 2 mg Documented by: Nitroglycerin (Nitrostat) 0.4 mg SUBLINGUAL Q5M PRN PRN Reason: CARDIAC/CHEST PAIN Ondansetron HCl (Zofran) 4 mg IV Q8H PRN PRN PRN Reason: NAUSEA/VOMITING Oxycodone HCl (Oxyir) 5 mg PO Q6H PRN PRN PRN Reason: Pain Score 4-5/10 Last Admin: 10/23/19 11:03 Dose: 5 mg Documented by: Polyethylene Glycol (Miralax) 17 gm PO DAILY [facility] Last Admin: 10/23/19 08:15 Dose: 17 gm Documented by: Prochlorperazine Edisylate (Compazine Iv) 5 mg IV Q4H PRN PRN PRN Reason: Breakthrough Nausea/Vomiting Sodium Chloride () 10 - 40 ml IV UD PRN PRN Reason: SALINE FLUSH Last Admin: 10/23/19 05:20 Dose: 10 ml Documented by: Sodium Chloride ([place] Nasal [place]) 2 spray NASAL TID PRN PRN PRN Reason: NASAL DRYNESS Throat Lozenges (Cepacol Sore Throat Lozenge) 1 lozenge MUCOUS MEM Q2H PRN PRN PRN Reason: SORE THROAT STROKE Vital Signs/Narrative: Vital Signs Temp Pulse Resp BP Pulse Ox 10/23/19 12:32 73 10/23/19 11:00 98.4 F 66 18 141/62 H 93 Medical Necessity - Tobacco Use Smoking Status: Never smoker Tobacco Use: Non-smoker Assessment/Plan All Active Problems Hyperkalemia (Acute) Hyponatremia (Acute) Acute renal failure (Acute) UTI (urinary tract infection) (Acute) Urinary retention (Acute) 1. UTI secondary to urinary retention leading to SUJIT/adrenal insufficiency -Continue with Rocephin, urine cultures with pansensitive Citrobacter koseri -Creatinine has completely resolved however she is still hyperkalemic, her hyponatremia has resolved however -Appreciate nephrology's input, morning cortisol is lower than last night's cortisol therefore will continue with hydrocortisone, and will monitor 2. HTN/HLD/morbid obesity -BMI is 49.1, lifestyle modifications were discussed -We will hold her lisinopril and will not resume on discharge -She is not on any cholesterol medications -Continue with Norvasc and labetalol 3. DM 2 -Hold her oral medications and continue with sliding scale insulin -He checks AC at bedtime 4. Chronic normocytic anemia -Hemoglobin is around 11 at baseline, she is currently at 9.9 secondary to the IV fluid she received -Will monitor DVT: Heparin Inpatient E&M: 46274 Subs Hosp L2
[2019-10-23 16:06] LABS: Bedside Glucose 164 mg/dL (70-110)
[2019-10-23] MEDS: Ceftriaxone 1 GM/50 ML BAG IV (21:19)
[2019-10-23 21:30] LABS: Bedside Glucose 177 mg/dL (70-110)
[2019-10-24] VITALS (13 sets, daily range): BP systolic 141–160; BP diastolic 53–73; PULSE 63–75; RESP 18–22; TEMP 36.7–37; O2SAT 93–97
[2019-10-24] MEDS: Acetaminophen 325 MG Tablet 650 MG PO (00:26)
[2019-10-24 06:23] LABS: Albumin, Serum 1.8 g/dL (3.2-5.0); BUN 21 mg/dL (7-18); BUN/Creat Ratio 25.6 RATIO (10-20); Chloride 99 mmol/L (98-107); Creatinine, Serum 0.82 mg/dL (0.55-1.02); EST Glomerular Filtration Rate 71 mL/min (>60); Est Glom Filt Rate - Afr Amer 86 mL/min (>60); Estimated Creatinine Clearance 95.19 ml/min; Glucose 132 mg/dL (74-106); Phosphorus 2.7 mg/dL (2.5-4.9); Potassium 4.8 mmol/L (3.5-5.1); Sodium Level 131 mmol/L (136-145)
[2019-10-24] MEDS: hydrALAZINE 25 MG Tablet PO ×3 (06:25→21:33)
[2019-10-24 06:35] LABS: Bedside Glucose 124 mg/dL (70-110)
--- NOTE | 2019-10-24 08:44 | PN_ITS ---
Patient Problems: Active and Suspected Problems Hyponatremia (Acute) Acute renal failure (Acute) UTI (urinary tract infection) (Acute) Urinary retention (Acute) Subjective: Doing well, says that her pain is better. Vitals/I&O's: Vital Signs Temp Pulse Resp BP Pulse Ox 98.4 F 65 18 152/53 H 93 10/24/19 06:20 10/24/19 07:01 10/24/19 06:20 10/24/19 06:25 10/24/19 08:07 Oxygen Flow Rate (L/min) 2 Oxygen Delivery Method Room Air Weight: 242 lb 15.19 oz Body Mass Index (BMI) 49.0 Intake and Output for Last 24 Hours 10/22/19 10/23/19 10/24/19 23:59 23:59 23:59 Intake Total 3301.25 / 3301.25 2090.00 / 2090.00 100 / 100 Output Total 3850 / 3850 4450 / 4450 1000 / 1000 Balance -548.75 / -548.75 -2360.00 / -2360.00 -900 / -900 General: Alert, Oriented x3, Cooperative, No apparent distress HEENT: Atraumatic, PERRLA, EOMI, Normocephalic Oral: Moist Mucosa Neck: Supple, No JVD Lungs: Clear to auscultation, Normal air movement, No rhonchi, No wheeze, No rales, Diminished Cardiovascular: Regular rate, Regular Rhythm, Normal S1, Normal S2, No murmurs Abdomen: Soft, Non Tender, Non-Distended, No Hepato-splenomegaly Extremities: No edema, Capillary Refill Less than 3 Seconds Skin: No rashes, No breakdown Neurological: Neuro grossly intact, Sensory exam intact to light touch and pain Psych/Mental Status: Normal Affect, Appropriate Microbiology Past 72 Hours 10/20/19 18:51 Urine Catheter - Catheter Urine Culture - Final Citrobacter koseri Laboratory Results 10/23/19 10:56: POC Glucose 184 H 10/23/19 16:00: POC Glucose 164 H 10/23/19 21:15: POC Glucose 177 H 10/24/19 05:17: Sodium 131 L, Potassium 4.8, Chloride 99, Carbon Dioxide 25.0, BUN 21 H, Creatinine 0.82, Estim Creat Clear Calc 95.19, Est GFR (MDRD) Af Amer 86, Est GFR (MDRD) Non-Af 71, BUN/Creatinine Ratio 25.6 H, Glucose 132 H, Calcium 9.0, Phosphorus 2.7, Albumin 1.8 L 10/24/19 06:22: POC Glucose 124 H Current Medications Acetaminophen (Tylenol) 650 mg PO Q6H PRN PRN PRN Reason: Pain Score 1-10/Temp > 100.7 F Last Admin: 10/24/19 00:26 Dose: 650 mg Documented by: Al Hydroxide/Mg Hydroxide (Mylanta Ii) 30 ml PO Q6H PRN PRN PRN Reason: Gastric Burning Albuterol Sulfate (Ventolin Aerosols) 2.5 mg INHALATION Q2H PRN PRN PRN Reason: SOB/Wheezing Amlodipine Besylate (Norvasc) 10 mg PO DAILY [facility] Last Admin: 10/23/19 08:12 Dose: 10 mg Documented by: Bisacodyl (Dulcolax) 10 mg PO DAILY PRN PRN PRN Reason: Constipation Docusate Sodium (Colace) 200 mg PO BID PRN PRN PRN Reason: Constipation Glucagon () 1 mg IM .X1 PRN PRN Reason: Hypoglycemia Guaifenesin (Robitussin) 20 ml PO Q4H PRN PRN PRN Reason: COUGH Heparin Sodium (Porcine) (Heparin Na) 5,000 unit SC Q12 [facility] Last Admin: 10/23/19 21:18 Dose: 5,000 unit Documented by: Hydralazine HCl (Apresoline Iv) 10 mg IV Q4H PRN PRN PRN Reason: SBP > 160 Hydralazine HCl (Apresoline) 25 mg PO TID [facility] Last Admin: 10/24/19 06:25 Dose: 25 mg Documented by: Hydrocortisone (Cortef) 5 mg PO BIDCM [facility] Last Admin: 10/23/19 16:04 Dose: 5 mg Documented by: Ceftriaxone Sodium (Rocephin) 1 gm in 50 mls @ 100 mls/hr IV Q24H [facility] Last Infusion: 10/23/19 21:49 Dose: Infused Documented by: Dextrose (Dextrose 10%-Water) 250 mls @ 999 mls/hr IV .Q16M PRN; Protocol PRN Reason: HYPOGLYCEMIA Insulin Human Lispro (Humalog Kwikpen (Bkc)) 0 unit SC ACHS [facility]; Protocol Last Admin: 10/24/19 06:25 Dose: Not Given Documented by: Labetalol HCl (Trandate) 100 mg PO BID [facility] Last Admin: 10/23/19 21:18 Dose: 100 mg Documented by: Melatonin (Melatonin) 3 mg PO QHS PRN PRN PRN Reason: INSOMNIA Morphine Sulfate () 2 mg IV Q3H PRN PRN PRN Reason: Pain Score 6-10/10 Last Admin: 10/23/19 05:19 Dose: 2 mg Documented by: Nitroglycerin (Nitrostat) 0.4 mg SUBLINGUAL Q5M PRN PRN Reason: CARDIAC/CHEST PAIN Ondansetron HCl (Zofran) 4 mg IV Q8H PRN PRN PRN Reason: NAUSEA/VOMITING Oxycodone HCl (Oxyir) 5 mg PO Q6H PRN PRN PRN Reason: Pain Score 1-10/10 Last Admin: 10/23/19 21:17 Dose: 5 mg Documented by: Polyethylene Glycol (Miralax) 17 gm PO DAILY [facility] Last Admin: 10/23/19 08:15 Dose: 17 gm Documented by: Prochlorperazine Edisylate (Compazine Iv) 5 mg IV Q4H PRN PRN PRN Reason: Breakthrough Nausea/Vomiting Sodium Chloride () 10 - 40 ml IV UD PRN PRN Reason: SALINE FLUSH Last Admin: 10/23/19 21:25 Dose: 10 ml Documented by: Sodium Chloride ([place] Nasal [place]) 2 spray NASAL TID PRN PRN PRN Reason: NASAL DRYNESS Throat Lozenges (Cepacol Sore Throat Lozenge) 1 lozenge MUCOUS MEM Q2H PRN PRN PRN Reason: SORE THROAT STROKE Vital Signs/Narrative: Vital Signs Temp Pulse Resp BP Pulse Ox 10/24/19 08:07 93 10/24/19 07:01 65 10/24/19 06:25 67 152/53 H 10/24/19 06:20 98.4 F 67 18 152/53 H 97 Medical Necessity - Tobacco Use Smoking Status: Never smoker Tobacco Use: Non-smoker Assessment/Plan All Active Problems Hyperkalemia (Acute) Hyponatremia (Acute) Acute renal failure (Acute) UTI (urinary tract infection) (Acute) Urinary retention (Acute) 1. UTI secondary to urinary retention leading to SUJIT/adrenal insufficiency -Continue with Rocephin, urine cultures with pansensitive Citrobacter koseri -Creatinine has completely resolved however she is still hyperkalemic, her hyponatremia has resolved however -Appreciate nephrology's input, morning cortisol was lower than nighttime cortisol therefore will continue with hydrocortisone, and will monitor 2. HTN/HLD/morbid obesity -BMI is 49.1, lifestyle modifications were discussed -We will hold her lisinopril and will not resume on discharge -She is not on any cholesterol medications -Continue with Norvasc and labetalol 3. DM 2 -Hold her oral medications and continue with sliding scale insulin -He checks AC at bedtime 4. Chronic normocytic anemia -Hemoglobin is around 11 at baseline, she is currently at 9.9 secondary to the IV fluid she received -Will monitor DVT: Heparin Inpatient E&M: [id number] Subs Hosp L2
[2019-10-24] MEDS: Docusate Sodium 100 MG Capsule 200 MG PO (09:36)
[2019-10-24] MEDS: oxyCODONE 5 MG Tablet PO ×3 (09:36→23:56)
[2019-10-24] MEDS: Labetalol 100 MG Tablet PO ×2 (09:37→21:33)
[2019-10-24] MEDS: Hydrocortisone 10 MG Tablet 5 MG PO ×2 (09:37→16:21)
[2019-10-24] MEDS: Heparin Injection (Vial) 5,000 UNIT/ML VIAL 5000 UNIT SC ×2 (09:37→21:34)
[2019-10-24] MEDS: amLODIPine 10 MG Tablet PO (09:37)
[2019-10-24] MEDS: 0.9% Saline Lock 10 ML Syringe IV ×2 (11:34→21:35)
[2019-10-24] MEDS: Insulin Lispro 100 UNIT/ML INSULN.PEN SC ×3 (11:34→21:34)
[2019-10-24] MEDS: Polyethylene Glycol 3350 17 GM PACKET PO (11:35)
[2019-10-24 11:40] LABS: Bedside Glucose 161 mg/dL (70-110)
[2019-10-24 16:31] LABS: Bedside Glucose 150 mg/dL (70-110)
[2019-10-24] MEDS: Ceftriaxone 1 GM/50 ML BAG IV (21:35)
[2019-10-25] VITALS (8 sets, daily range): BP systolic 149–163; BP diastolic 52–65; PULSE 65–73; RESP 16–18; TEMP 36.7–37; O2SAT 94–95
[2019-10-25 00:20] LABS: Bedside Glucose 158 mg/dL (70-110)
[2019-10-25] MEDS: hydrALAZINE 25 MG Tablet PO (06:34)
[2019-10-25] MEDS: oxyCODONE 5 MG Tablet PO (06:35)
[2019-10-25 06:46] LABS: Bedside Glucose 110 mg/dL (70-110)
[2019-10-25 07:07] LABS: Hematocrit 33.8 % (37-47); Hemoglobin 11.1 g/dL (12.0-15.0); Mean Corp Hgb Conc 32.8 g/dL (32-36); Mean Corpuscular Volume 88.3 fL (81-99); Mean Platelet Vol. 8.7 fl (6.2-12.0); POSITIVE COUNT YES; POSITIVE MORPHOLOGY YES; Platelet Count 262 K/mm3 (150-450); RBC Distribution Width SD 45.1 fl (35.1-43.9); Red Blood Count 3.83 M/mm3 (4.2-5.4); White Blood Count 13.2 K/mm3 (4.4-11.0)
[2019-10-25 07:29] LABS: Anion Gap 6 (5-15); BUN 17 mg/dL (7-18); BUN/Creat Ratio 21.4 RATIO (10-20); Chloride 99 mmol/L (98-107); Creatinine, Serum 0.79 mg/dL (0.55-1.02); EST Glomerular Filtration Rate 74 mL/min (>60); Est Glom Filt Rate - Afr Amer 90 mL/min (>60); Estimated Creatinine Clearance 78.06 ml/min; Glucose 116 mg/dL (74-106); Potassium 4.6 mmol/L (3.5-5.1); Sodium Level 133 mmol/L (136-145)
[2019-10-25 07:42] LABS: Differential Indicated MANUAL DIFF
[2019-10-25 08:49] LABS: Eosinophil 2 % (0-5); Lymphocyte 18 % (19-41); Metamyelocyte 1 % (0-1); Monocyte 6 % (0-10); Myelocyte 3 (0-0); Neutrophil-Segmented 68 % (47-70); Platelet Estimate ADEQUATE (ADEQ); Promyelocyte 2 (0-0); Total Cells Counted 100 (MANUAL DIFF)
[2019-10-25 08:50] LABS: Red Cell Morphology NORM C+C NORMAL (NORM C&C)
[2019-10-25] MEDS: Hydrocortisone 10 MG Tablet 5 MG PO (09:47)
[2019-10-25] MEDS: Heparin Injection (Vial) 5,000 UNIT/ML VIAL 5000 UNIT SC (09:48)
[2019-10-25] MEDS: Polyethylene Glycol 3350 17 GM PACKET PO (09:48)
[2019-10-25] MEDS: amLODIPine 10 MG Tablet PO (09:49)
[2019-10-25] MEDS: Labetalol 100 MG Tablet PO (09:49)
[2019-10-25] MEDS: Acetaminophen 325 MG Tablet 650 MG PO (09:51)
--- NOTE | 2019-10-25 10:40 | PCM.TXEXTCAR ---
- Diet 10/20/19 23:21 Diet: Cardiac: Calorie-Controlled Food consistency:: Regular Liquid Consistency:: Regular/Thin Is pt able to select menu?: Yes How many daily calories?: 1800 calorie - Routine Orders/Code Status Code Status: DNRCC-A - Therapies Physical Therapy: Eval and Treat Occupational Therapy: Eval and Treat - Allergies/Procedures Done in Hospital Allergies/Adverse Reactions: Allergies Penicillins Allergy (Verified 10/20/19 17:14) Hives - Type of Care/Length of Stay Estimated LOS: Convalescent Care Less Than 30 days Type of Care Needed: Skilled Rehab Potential: Good Prognosis: Good - Additional Orders/Day of Discharge Day of Discharge: 10/25/19 - Dietary and Speech Recommendations Dietitian Recommendations/Changes: Rec continue pt current diet order. Will discontinue Glucerna Shake TID as pt w/ adequate PO intake and BMI 49.1. - Follow Up Care Primary Care Physician: Yonis Torres MD [Primary Care Provider] - Please follow up with your Primary Care Physician in: 3-5 days Please Follow Up With: Vannessa Nguyen DO When: 2-4 weeks
[2019-10-25] MEDS: Insulin Lispro 100 UNIT/ML INSULN.PEN SC (11:15)
--- NOTE | 2019-10-25 11:15 | CASEMGMT ---
Physician completed a peer to peer with insurance and patient was approved for TCU. SW copied orders. LIVIER asked patient if she would like SW to call her family. She said she just talked with her son and he is on his way in to the hospital. LIVIER called Cass in TCU and left her a message letting her know physician did peer to peer and she was approved. Plan: [facility] TCU under skilled level of care Lakeisha LY
--- NOTE | 2019-10-25 11:22 | DS.PCM_ITS ---
Discharge Date and Diagnosis - Problem List Patient Problems: Active and Suspected Problems Hyponatremia (Acute) Acute renal failure (Acute) UTI (urinary tract infection) (Acute) Urinary retention (Acute) Date of Admission: 10/20/19 Date of Discharge: 10/25/19 - Primary Discharge Diagnosis Active and Suspected Problems Hyponatremia (Acute) Acute renal failure (Acute) UTI (urinary tract infection) (Acute) Urinary retention (Acute) - Secondary Discharge Diagnosis Chronic Problems Back pain (Chronic) Essential (primary) hypertension (Chronic) DM2 (diabetes mellitus, type 2) (Chronic) HLD (hyperlipidemia) (Chronic) VIN (obstructive sleep apnea) (Chronic) Morbid obesity (Chronic) Hospital Course and Treatment Imaging Results: Renal US: IMPRESSION: Limited study secondary to patient obesity. The kidneys appear within normal limits. Canela catheter seen within a decompressed urinary bladder\ Consults: Nephrology Operations: None Procedures: None Summary of Care Provided: Per HPI: The patient is a 79 y/o F w/ PMHx: Chronic Hyponatremia, Chronic normocytic anemia, Morbid Obesity, Diabetes mellitus type II, HTN, HLD, Chronic pain syndrome, VIN on CPAP with intermittent usage who presents to the [facility] ED on 10/20/19 referred to the ED from [facility] secondary to recent discharge 10/13/19, recently admitted with back pain who now re-presents with abnormal labs noted to be progressively be worsening over the last several days per facility lab testing with concurrent ongoing increasing fatigue, malaise, generalized lower back discomfort, dysuria, suprapubic discomfort, decreased urinary output with suspected retention with no specific fevers or chills but nausea without emesis prompting eventual ED referral. Work-up in the ED included T 97.7, heart rate 63, BP 124/82, respiratory rate 15, 99% on room air, CBC with WBC 15.3, hemoglobin 11.3, platelet 241 with left shift, BMP with sodium 118, potassium 5.2, chloride 81, BUN/creatinine 55/2.34, glucose 214, urinalysis with mildly elevated specific gravity 1.015, protein 100, occult blood 250, negative nitrite, 5 mucus esterase, RBC >100, WBC > 100, 4+, patient being catheterization, UCx also pending per ED. In the ED patient administered normal saline bolus and maintenance fluids as well as IV Rocephin given significant urinary findings. Witnessed placement of Canela catheter and notable 1.5 L urinary retention, foul purulent appearing and foul-smelling. Hospital Course: 1. UTI secondary to urinary retention leading to SUJIT/adrenal insufficiency- 79-year-old female from a senior care presented to the hospital with worsening labs including hyponatremia, hyperkalemia and a UTI. Her UTI was found to be a pansensitive Citrobacter koseri and she was has been on Rocephin will be discharged on Omnicef for 3 more days. Because of her hyponatremia she was started on some IV fluids and nephrology was consulted. Given the hyponatremia and the hyperkalemia there is some concern for adrenal insufficiency. Cortisol levels were obtained both at night in the morning and the morning cortisol was lower than the nighttime cortisol indicating an insufficiency. She was started on hydrocortisone and since then her sodium has improved and her potassium has decreased. Also her renal function has completely resolved with placement of a Canela. Would recommend a voiding trial once her UTI is cleared, and if it is unsuccessful then she can see urology as an outpatient. I also recommended she follow-up for her adrenal insufficiency with nephrology as well. Her lisinopril for her blood pressure, was discontinued secondary to her SUJIT and likely should be continued on discharge. Also I have discontinued her naproxen usage but she should continue with oxycodone for her back pain. She can continue with her Norvasc, labetalol, and hydralazine to maintain her blood pressures. I did discuss the discharge plan with both her and her , and they expressed understanding to the risks and benefits of going to the transitional care unit today. 2. Her other medical diagnoses were evaluated and her home medications were continued where appropriate Patient Problems: Active and Suspected Problems Hyponatremia (Acute) Acute renal failure (Acute) UTI (urinary tract infection) (Acute) Urinary retention (Acute) - Physical Exam Vitals/I&O's: Vital Signs Temp Pulse Resp BP Pulse Ox 98.1 F 70 18 162/65 H 95 10/25/19 11:17 10/25/19 11:17 10/25/19 11:17 10/25/19 11:17 10/25/19 11:17 Oxygen Flow Rate (L/min) 2 Oxygen Delivery Method Room Air Weight: 242 lb 15.19 oz Body Mass Index (BMI) 49.0 Intake and Output for Last 24 Hours 10/23/19 10/24/19 10/25/19 23:59 23:59 23:59 Intake Total 2090.00 / 2090.00 1310 / 1410 200 / 200 Output Total 4450 / 4450 3700 / 4300 1500 / 1500 Balance -2360.00 / -2360.00 -2390 / -2890 -1300 / -1300 General: Alert, Oriented x3, Cooperative, No apparent distress HEENT: Atraumatic, PERRLA, EOMI, Normocephalic Oral: Moist Mucosa Neck: Supple, No JVD Lungs: Clear to auscultation, Normal air movement, No rhonchi, No wheeze, No rales, Diminished Cardiovascular: Regular rate, Regular Rhythm, Normal S1, Normal S2, No murmurs Abdomen: Soft, Non Tender, Non-Distended, No Hepato-splenomegaly Extremities: No edema, Capillary Refill Less than 3 Seconds Skin: No rashes, No breakdown Neurological: Neuro grossly intact, Sensory exam intact to light touch and pain Psych/Mental Status: Normal Affect, Appropriate Microbiology Past 72 Hours 10/20/19 18:51 Urine Catheter - Catheter Urine Culture - Final Citrobacter koseri Laboratory Results 10/24/19 11:33: POC Glucose 161 H 10/24/19 16:20: POC Glucose 150 H 10/24/19 21:33: POC Glucose 158 H 10/25/19 06:33: POC Glucose 110 10/25/19 06:54: WBC 13.2 H, RBC 3.83 L, Hgb 11.1 L, Hct 33.8 L, MCV 88.3, MCH 29.0, MCHC 32.8, RDW Std Deviation 45.1 H, RDW Coeff of Lisa 14.0, Plt Count 262, MPV 8.7, Neut % (Auto) Not Reportable, Absolute Neuts (auto) 9.0 H, Absolute Lymphs (auto) 2.40, Total Counted 100, Neutrophils % (Manual) 68, Lymphocytes % (Manual) 18 L, Monocytes % (Manual) 6, Eosinophils % (Manual) 2, Metamyelocytes % 1, Myelocytes % 3 H, Promyelocytes % 2 H, Diff Path Review May , Platelet Estimate ADEQUATE, RBC Morphology NORM C+C 10/25/19 06:54: Sodium 133 L, Potassium 4.6, Chloride 99, Carbon Dioxide 28.0, Anion Gap 6, BUN 17, Creatinine 0.79, Estim Creat Clear Calc 78.06, Est GFR (MDRD) Af Amer 90, Est GFR (MDRD) Non-Af 74, BUN/Creatinine Ratio 21.4 H, Glucose 116 H, Calcium 9.0 Current Medications Acetaminophen (Tylenol) 650 mg PO Q6H PRN PRN PRN Reason: Pain Score 1-10/Temp > 100.7 F Last Admin: 10/25/19 09:51 Dose: 650 mg Documented by: Al Hydroxide/Mg Hydroxide (Mylanta Ii) 30 ml PO Q6H PRN PRN PRN Reason: Gastric Burning Albuterol Sulfate (Ventolin Aerosols) 2.5 mg INHALATION Q2H PRN PRN PRN Reason: SOB/Wheezing Amlodipine Besylate (Norvasc) 10 mg PO DAILY [facility] Last Admin: 10/25/19 09:49 Dose: 10 mg Documented by: Bisacodyl (Dulcolax) 10 mg PO DAILY PRN PRN PRN Reason: Constipation Docusate Sodium (Colace) 200 mg PO BID PRN PRN PRN Reason: Constipation Last Admin: 10/24/19 09:36 Dose: 200 mg Documented by: Glucagon () 1 mg IM .X1 PRN PRN Reason: Hypoglycemia Guaifenesin (Robitussin) 20 ml PO Q4H PRN PRN PRN Reason: COUGH Heparin Sodium (Porcine) (Heparin Na) 5,000 unit SC Q12 [facility] Last Admin: 10/25/19 09:48 Dose: 5,000 unit Documented by: Hydralazine HCl (Apresoline Iv) 10 mg IV Q4H PRN PRN PRN Reason: SBP > 160 Hydralazine HCl (Apresoline) 25 mg PO TID [facility] Last Admin: 10/25/19 06:34 Dose: 25 mg Documented by: [facility] Admin: 10/25/19 09:47 Dose: 5 mg Documented by: Ceftriaxone Sodium (Rocephin) 1 gm in 50 mls @ 100 mls/hr IV Q24H [facility] Last Infusion: 10/24/19 23:50 Dose: Infused Documented by: Dextrose (Dextrose 10%-Water) 250 mls @ 999 mls/hr IV .Q16M PRN; Protocol PRN Reason: HYPOGLYCEMIA Insulin Human Lispro (Humalog Kwikpen (Bkc)) 0 unit SC [facility]; Protocol Last Admin: 10/25/19 11:15 Dose: 2 u Documented by: Labetalol HCl (Trandate) 100 mg PO BID [facility] Last Admin: 10/25/19 09:49 Dose: 100 mg Documented by: Melatonin (Melatonin) 3 mg PO QHS PRN PRN PRN Reason: INSOMNIA Morphine Sulfate () 2 mg IV Q3H PRN PRN PRN Reason: Pain Score 6-10/10 Last Admin: 10/23/19 05:19 Dose: 2 mg Documented by: Nitroglycerin (Nitrostat) 0.4 mg SUBLINGUAL Q5M PRN PRN Reason: CARDIAC/CHEST PAIN Ondansetron HCl (Zofran) 4 mg IV Q8H PRN PRN PRN Reason: NAUSEA/VOMITING Oxycodone HCl (Oxyir) 5 mg PO Q6H PRN PRN PRN Reason: Pain Score 1-10/10 Last Admin: 10/25/19 06:35 Dose: 5 mg Documented by: Polyethylene Glycol (Miralax) 17 gm PO DAILY [facility] Last Admin: 10/25/19 09:48 Dose: 17 gm Documented by: Prochlorperazine Edisylate (Compazine Iv) 5 mg IV Q4H PRN PRN PRN Reason: Breakthrough Nausea/Vomiting Sodium Chloride () 10 - 40 ml IV UD PRN PRN Reason: SALINE FLUSH Last Admin: 10/24/19 21:35 Dose: 10 ml Documented by: Sodium Chloride (Humphreys Nasal [place]) 2 spray NASAL TID PRN PRN PRN Reason: NASAL DRYNESS Throat Lozenges (Cepacol Sore Throat Lozenge) 1 lozenge MUCOUS MEM Q2H PRN PRN PRN Reason: SORE THROAT Home Medications: Medications to take at Discharge Labetalol [Trandate (Beta Josiah)] 100 mg PO BID 10/09/19 Sitagliptin Phosphate [Januvia] 100 mg PO DAILY 10/09/19 cycloBENZAPRine HCl [Flexeril] 10 mg PO TID PRN PRN tab 10/13/19 Amlodipine [Norvasc] 10 mg PO DAILY 10/20/19 Glimepiride [Amaryl] 1 mg PO DAILY 10/20/19 Nut.tx.gluc.intoler,Lac-Fr,Soy [Glucerna] 120 ml PO 4X/DAY 10/20/19 Ondansetron [Zofran Odt] 4 mg PO Q6H PRN PRN 10/20/19 Oxycodone HCl/Acetaminophen [Oxycodon-Acetaminophen 2.5-325] 1 ea PO DAILY@0800 10/20/19 Oxycodone HCl/Acetaminophen [Percocet 5-325] 1 tab PO Q6H PRN PRN 10/20/19 Psyllium Husk (with Sugar) [Metamucil Packet] 3.4 gm PO BID 10/20/19 Acetaminophen [Tylenol Tablet] 650 mg PO Q6H PRN PRN tab 10/25/19 Cefdinir [Omnicef [equiv]] 300 mg PO Q12H #6 cap 10/25/19 Docusate Sodium [Colace] 200 mg PO BID PRN PRN cap 10/25/19 Hydrocortisone [Cortef] 5 mg PO BIDCM tab 10/25/19 Mag Hydrox/Al Hydrox/Simeth [Mylanta II] 30 ml PO Q6H PRN PRN udc 10/25/19 Melatonin 3 mg PO QHS PRN PRN tab 10/25/19 Nitroglycerin (INPATIENT USE) [Nitrostat] 0.4 mg SUBLINGUAL Q5M PRN tab.subl 10/25/19 Polyethylene Glycol 3350 [Miralax] 17 gm PO DAILY packet 10/25/19 hydrALAZINE [Apresoline] 25 mg PO TID tab 10/25/19 Following Prescrptions Were Given to Patient: Cefdinir [Omnicef [equiv]] 300 mg PO Q12H #6 cap Primary Care Physician: Yonis Torers MD [Primary Care Provider] - Please follow up with your Primary Care Physician in: 3-5 days Please Follow Up With: Vannessa Nguyen DO When: 2-4 weeks Disposition: [facility] facility Minutes spent on discharge:: 35 Patient Condition:: Stable Medical Necessity - Tobacco Use Smoking Status: Never smoker Tobacco Use: Non-smoker Meaningful Use Info Meaningful Use Diagnoses (Choose all that apply): None applicable Inpatient E&M: 76731 [facility]
--- NOTE | 2019-10-25 11:35 | PHA.DC.MR ---
Pharmacy Service has performed discharge medication reconciliation for this patient. The patient's discharge medication list was reviewed for discrepancies and discrepancies were resolved. Home Medications Labetalol [Trandate (Beta Josiah)] 100 mg PO BID 10/09/19 Sitagliptin Phosphate [Januvia] 100 mg PO DAILY 10/09/19 cycloBENZAPRine HCl [Flexeril] 10 mg PO TID PRN PRN tab 10/13/19 Amlodipine [Norvasc] 10 mg PO DAILY 10/20/19 Glimepiride [Amaryl] 1 mg PO DAILY 10/20/19 Nut.tx.gluc.intoler,Lac-Fr,Soy [Glucerna] 120 ml PO 4X/DAY 10/20/19 Ondansetron [Zofran Odt] 4 mg PO Q6H PRN PRN 10/20/19 Oxycodone HCl/Acetaminophen [Oxycodon-Acetaminophen 2.5-325] 1 ea PO DAILY@0800 10/20/19 Oxycodone HCl/Acetaminophen [Percocet 5-325] 1 tab PO Q6H PRN PRN 10/20/19 Psyllium Husk (with Sugar) [Metamucil Packet] 3.4 gm PO BID 10/20/19 Acetaminophen [Tylenol Tablet] 650 mg PO Q6H PRN PRN tab 10/25/19 Cefdinir [Omnicef [equiv]] 300 mg PO Q12H #6 cap 10/25/19 Docusate Sodium [Colace] 200 mg PO BID PRN PRN cap 10/25/19 Hydrocortisone [Cortef] 5 mg PO BIDCM tab 10/25/19 Mag Hydrox/Al Hydrox/Simeth [Mylanta II] 30 ml PO Q6H PRN PRN udc 10/25/19 Melatonin 3 mg PO QHS PRN PRN tab 10/25/19 Nitroglycerin (INPATIENT USE) [Nitrostat] 0.4 mg SUBLINGUAL Q5M PRN tab.subl 10/25/19 Polyethylene Glycol 3350 [Miralax] 17 gm PO DAILY packet 10/25/19 hydrALAZINE [Apresoline] 25 mg PO TID tab 10/25/19
[2019-10-25 11:46] LABS: Bedside Glucose 191 mg/dL (70-110)
--- NOTE | 2019-10-25 13:48 | PCM.PN.REN ---
Subjective: renal function improved. Sodium and potassium under control after started on low dose cortisone for possible adrenal insuff. VSS AF continue to follow labs in TCU. Ok to resume metformin for diabetes. Adjust BP meds as needed. Consider ARB since pt with hx hyperkalemia on ACEI and NSAIDs. UTI antibx per primary service. Avoid NSAIDs. Follow up as needed - Physical Exam Vitals/I&O's: Vital Signs Temp Pulse Resp BP Pulse Ox 98.1 F 70 18 162/65 H 95 10/25/19 11:17 10/25/19 11:17 10/25/19 11:17 10/25/19 11:17 10/25/19 11:17 Oxygen Flow Rate (L/min) 2 Oxygen Delivery Method Room Air Weight: 110.2 kg Body Mass Index (BMI) 49.0 Intake and Output for Last 24 Hours 10/23/19 10/24/19 10/25/19 23:59 23:59 23:59 Intake Total 2090.00 / 2090.00 1310 / 1410 200 / 200 Output Total 4450 / 4450 3700 / 4300 1500 / 1500 Balance -2360.00 / -2360.00 -2390 / -2890 -1300 / -1300 Laboratory Results 10/24/19 16:20: POC Glucose 150 H 10/24/19 21:33: POC Glucose 158 H 10/25/19 06:33: POC Glucose 110 10/25/19 06:54: WBC 13.2 H, RBC 3.83 L, Hgb 11.1 L, Hct 33.8 L, MCV 88.3, MCH 29.0, MCHC 32.8, RDW Std Deviation 45.1 H, RDW Coeff of Lisa 14.0, Plt Count 262, MPV 8.7, Neut % (Auto) Not Reportable, Absolute Neuts (auto) 9.0 H, Absolute Lymphs (auto) 2.40, Total Counted 100, Neutrophils % (Manual) 68, Lymphocytes % (Manual) 18 L, Monocytes % (Manual) 6, Eosinophils % (Manual) 2, Metamyelocytes % 1, Myelocytes % 3 H, Promyelocytes % 2 H, Diff Path Review December, Platelet Estimate ADEQUATE, RBC Morphology NORM C+C 10/25/19 06:54: Sodium 133 L, Potassium 4.6, Chloride 99, Carbon Dioxide 28.0, Anion Gap 6, BUN 17, Creatinine 0.79, Estim Creat Clear Calc 78.06, Est GFR (MDRD) Af Amer 90, Est GFR (MDRD) Non-Af 74, BUN/Creatinine Ratio 21.4 H, Glucose 116 H, Calcium 9.0 10/25/19 11:12: POC Glucose 191 H Medical Necessity - Tobacco Use Smoking Status: Never smoker Tobacco Use: Non-smoker Assessment/Plan All Active Problems Hyperkalemia (Acute) Hyponatremia (Acute) Acute renal failure (Acute) UTI (urinary tract infection) (Acute) Urinary retention (Acute)
[2019-10-25 15:42] LABS: Pathologist Review Reviewed
== END 2019-10-25 13:32 | disposition skilled nursing facility (03) | DRG 683 ==
LOC: ED 18:49 → PCU 19:56
PROVIDERS: Internal Medicine Nephrology; Student in an Organized Health Care Education/Training Program; Admitting Provider Family Medicine; Emergency Provider Emergency Medicine; PCP Family Medicine; Visit Provider Family Medicine
DX: N17.9 Acute kidney failure, unspecified (principal); N39.0 Urinary tract infection, site not specified; E87.1 Hypo-osmolality and hyponatremia; E27.40 Unspecified adrenocortical insufficiency; Z68.42 Body mass index [BMI] 45.0-49.9, adult; I10 Essential (primary) hypertension; D64.9 Anemia, unspecified; E11.9 Type 2 diabetes mellitus without complications; G47.33 Obstructive sleep apnea (adult) (pediatric); E66.01 Morbid (severe) obesity due to excess calories; E87.5 Hyperkalemia; R33.9 Retention of urine, unspecified; E78.5 Hyperlipidemia, unspecified; B96.89 Other specified bacterial agents as the cause of diseases classified elsewhere; Z79.84 Long term (current) use of oral hypoglycemic drugs
CPT/HCPCS: 36415; 76770; 80048; 80069; 81001; 82533; 82570; 82962; 83930; 83935; 84300; 84439; 84443; 85025; 87077; 87086; 87088; 87186; 93005; 97163; 97167; 97530; 97535; 97802; 99251; 99285; J7030; A4216; G0463

== ENCOUNTER 2019-10-25 13:41 | Inpatient (IN) | payer MEDICARE, SELFPAY ==
[2019-10-20 21:09] VITALS: BMI 49.0
[2019-10-25 13:46] VITALS: BP 170/59; PULSE 69; RESP 16; TEMP 36.2; O2SAT 94
[2019-10-25 13:59] VITALS: BMI 47.5
[2019-10-25 14:10] VITALS: BMI 47.5
[2019-10-25 17:38] VITALS: BP 172/61; PULSE 69
[2019-10-25] MEDS: hydrALAZINE 25 MG Tablet PO ×2 (17:38→21:40)
[2019-10-25] MEDS: Hydrocortisone 10 MG Tablet 5 MG PO (17:39)
[2019-10-25] MEDS: Cefdinir 300 MG Capsule PO (17:40)
[2019-10-25] MEDS: Labetalol 100 MG Tablet PO (17:40)
[2019-10-25] MEDS: Glucerna Shake 120 ML LIQUID PO ×2 (17:43→21:44)
[2019-10-25 17:45] LABS: Bedside Glucose 135 mg/dL (70-110)
[2019-10-25] MEDS: Acetaminophen 325 MG Tablet 650 MG PO (17:46)
--- NOTE | 2019-10-25 20:17 | HP.PCM_ITS ---
Problem List (1) Debility Status: Acute (2) Dehydration Status: Acute (3) Acute kidney injury Status: Acute (4) Adrenal insufficiency Status: Acute (5) Low back pain Status: Chronic (6) Diabetes mellitus Status: Chronic (7) Hypertension Status: Chronic (8) Body mass index (BMI) 45.0-49.9, adult Status: Chronic (9) Muscle spasm Status: Chronic (10) Nausea Status: Chronic (11) Hyponatremia Status: Acute (12) UTI (urinary tract infection) Status: Acute (13) Urinary retention Status: Acute (14) HLD (hyperlipidemia) Status: Chronic Qualifiers: (15) VIN (obstructive sleep apnea) Status: Chronic History of Present Illness Date of Admission: 10/25/19 Chief Complaint: Here for rehabilitation, strengthening, prior to discharge home alone. The patient is a 79 year old Female with below past medical history presented to [facility] Emergency Department 10/20/2019 with abnormal labs. 10/20/2019 EKG normal sinus rhythm, left anterior fascicular block, ST elevation, consider early repolarization, pericarditis, or injury. [place] resident, Sodium 119, BUN 54, Cr 2.1. Unable to get up and ambulate for 9 days. Drinking water excessively. IV Fluids given, UA pending. 10/20/2019 Admit to Hospital. Rocephin IV, Canela catheter for UTI/Urinary retention. Gentle hydration for hyponatremia. PRN Hydralazine for elevated blood pressure. 10/21/2019 Urine culture gram negative rods on Ceftriaxone. Sodium improved to 124, chronic hyponatremia. Acute kidney injury improved with IV Fluids. Lisinopril held for acute kidney injury. 10/21/2019 Dr. Nguyen recommended continuing normal saline at 100ML/hour. Hold thiazide diuretics. Hold ACEI. 10/22/2019 Renal ultrasound done, results pending. 10/22/2019 Hydrocortisone for adrenal insufficiency. Rocephin IV for UTI. Sliding scale insulin for Diabetes Mellitus II, oral hypoglycemics held. 10/22/2019 Sodium 128, Hydrocortisone for adrenal insufficiency. Low back pain secondary to compression fracture. Hold HCTZ. Hold Lisinopril. Citrobacter Koseri UTI treated with Rocephin IV, finish with Cefdinir. Hyponatremia, Hypokalemia improved with treatment of adrenal insufficiency. 10/25/2019 Admit to TCU with debility, here for rehabilitation, strengthening, prior to discharge home alone. Past Medical History Past Medical History (Chronic Problems): Chronic Problems Low back pain (Chronic) Diabetes mellitus (Chronic) Hypertension (Chronic) Body mass index (BMI) 45.0-49.9, adult (Chronic) Muscle spasm (Chronic) Nausea (Chronic) Back pain (Chronic) Essential (primary) hypertension (Chronic) DM2 (diabetes mellitus, type 2) (Chronic) HLD (hyperlipidemia) (Chronic) VIN (obstructive sleep apnea) (Chronic) Morbid obesity (Chronic) Allergies Penicillins Allergy (Verified 10/20/19 17:14) Hives adhesive tape Adverse Reaction (Verified 10/25/19 14:17) Other Home Medications: Ambulatory Orders Medication Instructions Recorded Labetalol [Trandate (Beta Josiah)] 100 mg PO BID 10/09/19 Sitagliptin Phosphate [Januvia] 100 mg PO DAILY 10/09/19 cycloBENZAPRine HCl [Flexeril] 10 mg PO TID PRN PRN tab 10/13/19 Amlodipine [Norvasc] 10 mg PO DAILY 10/20/19 Glimepiride [Amaryl] 1 mg PO DAILY 10/20/19 Nut.tx.gluc.intoler,Lac-Fr,Soy 120 ml PO 4X/DAY 10/20/19 [Glucerna] Ondansetron [Zofran Odt] 4 mg PO Q6H PRN PRN 10/20/19 Oxycodone HCl/Acetaminophen 1 ea PO DAILY@0800 10/20/19 [Oxycodon-Acetaminophen 2.5-325] Oxycodone HCl/Acetaminophen 1 tab PO Q6H PRN PRN 10/20/19 [Percocet 5-325] Psyllium Husk (with Sugar) 3.4 gm PO BID 10/20/19 [Metamucil Packet] Acetaminophen [Tylenol Tablet] 650 mg PO Q6H PRN PRN tab 10/25/19 Cefdinir [Omnicef [equiv]] 300 mg PO Q12H 10/25/19 Docusate Sodium [Colace] 200 mg PO BID PRN PRN cap 10/25/19 Hydrocortisone [Cortef] 5 mg PO BIDCM 10/25/19 Mag Hydrox/Al Hydrox/Simeth 30 ml PO Q6H PRN PRN udc 10/25/19 [Mylanta II] Melatonin 3 mg PO QHS PRN PRN tab 10/25/19 Nitroglycerin (INPATIENT USE) 0.4 mg SUBLINGUAL Q5M PRN tab.subl 10/25/19 [Nitrostat] Polyethylene Glycol 3350 [Miralax] 17 gm PO DAILY 10/25/19 hydrALAZINE [Apresoline] 25 mg PO TID 10/25/19 Surgical History: appendectomy, cholecystectomy, hysterectomy, - - left knee arthroscopic surgery. 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 Maternal History Items: Hypertension Review of Systems Constitutional: Denies: Chills, Fever, Weight Change HEENT: Denies: Head Aches, Sinus Congestion, Sinus Drainage Cardiovascular: Denies: Chest Pain, Palpitations Respiratory: Denies: Cough, Shortness of breath at rest, Sputum production Gastrointestinal: Denies: Abdominal Pain, Nausea, Vomiting Genitourinary: Denies: Dysuria Musculoskeletal: Denies: Joint Pain, Joint Tenderness Skin: Denies: Rash, Wounds Neurological: Denies: Numbness, Tingling, Focal weakness Psychiatric: Denies: Anxiety, Depression, Homicidal Ideations, Suicidal Ideations Hematologic/ Lymphatic: Denies: Easy Bruising, Easy Bleeding VTE Information - Inpt Only VTE Present on Admission: No VTE Mechan Device Prophylaxis: Knee High TULIO Hose VTE Pharm Prophylaxis ordered?: Yes Patient Problems: Active and Suspected Problems Debility (Acute) Dehydration (Acute) Acute kidney injury (Acute) Adrenal insufficiency (Acute) - Physical Exam Vitals/I&O's: Vital Signs Temp Pulse Resp BP Pulse Ox 97.2 F L 69 16 172/61 H 94 10/25/19 13:46 10/25/19 17:38 10/25/19 13:46 10/25/19 17:38 10/25/19 13:46 Oxygen Delivery Method Room Air Weight: 106.623 kg Body Mass Index (BMI) 47.5 Intake and Output for Last 24 Hours 03/14/20 03/15/20 03/16/20 23:59 23:59 23:59 Output Total 1000 / 1000 Balance -1000 / -1000 General: Alert, Oriented x3, Cooperative HEENT: Atraumatic, PERRLA, EOMI, Normocephalic Neck: Supple, No JVD, Negative Carotid Bruits Lungs: Clear to auscultation, Normal air movement Cardiovascular: Regular rate, No murmurs Abdomen: Bowel Sounds Present, Soft, Non Tender, - - Indwelling Canela Catheter. Extremities: No edema, Capillary Refill Less than 3 Seconds Skin: No rashes, No breakdown Musculoskeletal: No Tenderness to Palpation of Joints or Extremities Neurological: Cranial nerves II-XII grossly intact Psych/Mental Status: Normal Affect, Appropriate Laboratory Results 10/25/19 17:43: POC Glucose 135 H Current Medications Acetaminophen (Tylenol) 650 mg PO Q6H PRN PRN PRN Reason: Pain Score 1-10/Temp > 100.7 F Last Admin: 10/25/19 17:46 Dose: 650 mg Documented by: Al Hydroxide/Mg Hydroxide (Mylanta Ii) 30 ml PO Q6H PRN PRN PRN Reason: Gastric Burning Amlodipine Besylate (Norvasc) 10 mg PO DAILY [facility] Calamine/Phenol (Calmoseptine Ointment) 1 applic TOPICAL BID [facility]; Protocol Cefdinir (Omnicef [Equiv]) 300 mg PO Q12 [facility] Last Admin: 10/25/19 17:40 Dose: 300 mg Documented by: Cyclobenzaprine HCl (Flexeril) 10 mg PO TID PRN PRN PRN Reason: MUSCLE SPASM Docusate Sodium (Colace) 200 mg PO BID PRN PRN PRN Reason: Constipation Glimepiride (Amaryl) 1 mg PO DAILY@0730 [facility] Hydralazine HCl (Apresoline) 25 mg PO TID [facility] Last Admin: 10/25/19 17:38 Dose: 25 mg Documented by: [facility] Last Admin: 10/25/19 17:39 Dose: 5 mg Documented by: Labetalol HCl (Trandate) 100 mg PO BID [facility] Last Admin: 10/25/19 17:40 Dose: 100 mg Documented by: Linagliptin (Tradjenta) 5 mg PO DAILY [facility] Melatonin (Melatonin) 3 mg PO QHS PRN PRN PRN Reason: INSOMNIA Nitroglycerin (Nitrostat) 0.4 mg SUBLINGUAL Q5M PRN PRN Reason: CARDIAC/CHEST PAIN Nutritional Formula (Lactose Free) (Glucerna Shake) 120 ml PO 4X/DAY [facility] Last Admin: 10/25/19 17:43 Dose: 120 ml Documented by: Nystatin (Mycostatin Powder) 1 applic TOPICAL BID [facility]; Protocol Ondansetron HCl (Zofran Odt) 4 mg PO Q6H PRN PRN PRN Reason: NAUSEA Polyethylene Glycol (Miralax) 17 gm PO DAILY [facility] Sodium Chloride () 10 - 40 ml IV UD PRN PRN Reason: SALINE FLUSH Tuberculin PPD (Tubersol, Aplisol, Ppd) 5 tu ID X1 ONE Stop: 10/26/19 10:01 Tuberculin PPD (Tubersol, Aplisol, Ppd) 5 tu ID X1 ONE Stop: 11/02/19 10:01 Assessment/Plan All Active Problems Debility (Acute) Dehydration (Acute) Acute kidney injury (Acute) Adrenal insufficiency (Acute) Hyperkalemia (Acute) Hyponatremia (Acute) Acute renal failure (Acute) UTI (urinary tract infection) (Acute) Urinary retention (Acute) 79 year old female with below past medical history hospitalized for hyponatremia, acute kidney injury secondary to urinary retention, C. Koseri UTI, complicated by hypokalemia, adrenal insufficiency, admitted to TCU with debility, here for rehabilitation, strengthening, prior to discharge to care home. * Debility - PT/OT. * Pain - Tylenol 1000MG Q6H PRN pain (1-3), Oxycodone 5MG Q4H PRN pain (4-10). * Bowel - Miralax 17GM daily, Senna/colace 2 tablets BID, Dulcolax 10MG daily PRN. * Adult immunization - Administer Prevnar 13, Pneumovax 23, Fluzone as appropriate. * DVT prophylaxis - Lovenox 40MG SC daily. * Hypertension - Labetalol 100MG BID, Hydralazine 25MG TID, Amlodipine 10MG daily. * C. Koseri UTI - Cefdinir 300MG BID thru 10/28/2019. * Muscle spasm - Baclofen 10MG TID PRN. * Diabetes Mellitus II - Glimepiride 1MG daily, Tradjenta 5MG daily, monitor blood sugars. * Nutrition - Glucerna 120ML 4x/day. * Adrenal insufficiency - Cortef 5MG BID. * Insomnia - Melatonin 3MG QHS PRN. * Skin irritation - Calmoseptine BID. * Tinea Corporis - Nystatin powder BID. * Nausea - Zofran 4MG Q6H PRN. * Urinary retention - Canela catheter removal, voiding trials per protocol.
[2019-10-25] MEDS: Menthol/Lanolin/Calamine/Znox 113 GM Tube 1 APPLIC TOPICAL (21:36)
[2019-10-25] MEDS: Nystatin Powder 15gm Bottle 1 APPLIC TOPICAL (21:37)
[2019-10-25 21:40] VITALS: BP 137/53; PULSE 63
[2019-10-25] MEDS: oxyCODONE 5 MG Tablet PO (21:44)
[2019-10-25 22:10] LABS: Bedside Glucose 168 mg/dL (70-110)
[2019-10-26] MEDS: Cefdinir 300 MG Capsule PO ×2 (05:36→17:17)
[2019-10-26] MEDS: LINAGLIPTIN 5 MG TABLET PO (05:36)
[2019-10-26] MEDS: Senna/Docusate Sodium 1 Tablet 2 TABLET PO ×2 (05:36→17:17)
[2019-10-26] MEDS: Labetalol 100 MG Tablet PO ×2 (05:36→17:33)
[2019-10-26] MEDS: Enoxaparin 40 MG/0.4 ML Syringe SC (05:36)
[2019-10-26] MEDS: Polyethylene Glycol 3350 17 GM PACKET PO (05:36)
[2019-10-26] MEDS: amLODIPine 10 MG Tablet PO (05:36)
[2019-10-26 05:37] VITALS: BP 156/63; PULSE 69
[2019-10-26] MEDS: hydrALAZINE 25 MG Tablet PO ×3 (05:37→20:43)
[2019-10-26] MEDS: Glucerna Shake 120 ML LIQUID PO ×3 (05:41→17:34)
[2019-10-26] MEDS: Menthol/Lanolin/Calamine/Znox 113 GM Tube 1 APPLIC TOPICAL ×2 (05:43→17:13)
[2019-10-26] MEDS: Nystatin Powder 15gm Bottle 1 APPLIC TOPICAL ×2 (05:44→17:14)
[2019-10-26 06:03] LABS: Hematocrit 34.4 % (37-47); Hemoglobin 10.9 g/dL (12.0-15.0); Mean Corp Hgb Conc 31.7 g/dL (32-36); Mean Corpuscular Volume 91.5 fL (81-99); Mean Platelet Vol. 8.8 fl (6.2-12.0); POSITIVE COUNT YES; POSITIVE MORPHOLOGY YES; Platelet Count 233 K/mm3 (150-450); RBC Distribution Width CV 14.1 % (11.6-14.6); RBC Distribution Width SD 47.8 fl (35.1-43.9); Red Blood Count 3.76 M/mm3 (4.2-5.4); White Blood Count 13.6 K/mm3 (4.4-11.0)
[2019-10-26 06:10] LABS: Differential Indicated MANUAL DIFF
[2019-10-26 06:11] LABS: Bedside Glucose 129 mg/dL (70-110)
[2019-10-26 06:28] LABS: Anion Gap 5 (5-15); BUN 14 mg/dL (7-18); BUN/Creat Ratio 20.1 RATIO (10-20); Calcium,Total 9.1 mg/dL (8.5-10.1); Chloride 101 mmol/L (98-107); EST Glomerular Filtration Rate 86 mL/min (>60); Est Glom Filt Rate - Afr Amer 104 mL/min (>60); Estimated Creatinine Clearance 75.52 ml/min; Glucose 131 mg/dL (74-106); Potassium 4.3 mmol/L (3.5-5.1); Sodium Level 134 mmol/L (136-145)
[2019-10-26 06:38] LABS: Eosinophil 1 % (0-5); Lymphocyte 13 % (19-41); Metamyelocyte 3 % (0-1); Monocyte 5 % (0-10); Neutrophil-Band 5 % (0-5); Neutrophil-Segmented 73 % (47-70); Total Cells Counted 100 (MANUAL DIFF)
[2019-10-26 06:41] LABS: Absolute Lymphocyte Count 1.77 X10^3/uL (0.83-4.51); Absolute Neutrophil Count 10.6 X10^3/uL (2.0-7.7); Platelet Estimate ADEQUATE (ADEQ)
[2019-10-26 06:42] LABS: Anisocytosis RARE; Macrocytosis RARE; Red Cell Morphology N CHROM NORMAL (NORM C&C)
[2019-10-26] MEDS: Hydrocortisone 10 MG Tablet 5 MG PO ×2 (08:24→16:50)
[2019-10-26] MEDS: Glimepiride 1 MG Tablet PO (08:24)
[2019-10-26 09:44] LABS: Pathologist Review Reviewed
--- NOTE | 2019-10-26 10:44 | PHA.CONS_ITS ---
<Ignacio Larryip D - Last Filed: 10/26/19 10:44> Progress Note - Pharmacy Subjective: TCU Admission Objective: Allergies Penicillins Allergy (Verified 10/20/19 17:14) Hives adhesive tape Adverse Reaction (Verified 10/25/19 14:17) Other Current Medications Generic Name Dose Route Start Last Admin Trade Name Freq PRN Reason Stop Dose Admin Acetaminophen 1,000 mg 10/25/19 20:44 Tylenol PO Q6H PRN PRN Pain Score 1-3/10 Amlodipine Besylate 10 mg 10/26/19 06:00 10/26/19 05:36 Norvasc PO 10 mg DAILY HUSAM Administration Baclofen 10 mg 10/25/19 20:37 Lioresal PO TID PRN MUSCLE SPASM Bisacodyl 10 mg 10/25/19 20:39 Dulcolax PO DAILY PRN Constipation Calamine/Phenol 1 applic 10/25/19 18:00 10/26/19 05:43 Calmoseptine Ointment TOPICAL 1 applicatio BID HUSAM Administration Protocol Cefdinir 300 mg 10/25/19 18:00 10/26/19 05:36 Omnicef [Equiv] PO 10/28/19 23:59 300 mg Q12 HUSAM Administration Enoxaparin Sodium 40 mg 10/26/19 06:00 10/26/19 05:36 Lovenox SC 40 mg DAILY@0600 HUSAM Administration Glimepiride 1 mg 10/26/19 07:30 10/26/19 08:24 Amaryl PO 1 mg DAILY@0730 HUSAM Administration Hydralazine HCl 25 mg 10/25/19 14:00 10/26/19 05:37 Apresoline PO 25 mg TID HUSAM Administration Hydrocortisone 5 mg 10/25/19 17:00 10/26/19 08:24 Cortef PO 5 mg BIDCM HUSAM Administration Labetalol HCl 100 mg 10/25/19 18:00 10/26/19 05:36 Trandate PO 100 mg BID HUSAM Administration Linagliptin 5 mg 10/26/19 06:00 10/26/19 05:36 Tradjenta PO 5 mg DAILY [facility]USAM Administration Melatonin 3 mg 10/25/19 13:59 Melatonin PO QHS PRN PRN INSOMNIA Nutritional Formula (Lactose Free) 120 ml 10/25/19 17:00 10/26/19 05:41 Glucerna Shake PO 120 ml 4X/DAY [facility]USAM Administration Nystatin 1 applic 10/25/19 18:00 10/26/19 05:44 Mycostatin Powder TOPICAL 1 applicatio BID [facility]USAM Administration Protocol Ondansetron HCl 4 mg 10/25/19 13:59 Zofran Odt PO Q6H PRN PRN NAUSEA Oxycodone HCl 5 mg 10/25/19 20:38 10/25/19 21:44 Oxyir PO 5 mg Q4H PRN PRN Administration Pain Score 4-10/10 Polyethylene Glycol 17 gm 10/26/19 06:00 10/26/19 05:36 Miralax PO 17 gm DAILY HUSAM Administration Senna/Docusate Sodium 2 tablet 10/26/19 06:00 10/26/19 05:36 Senokot-S, Kay-Colace PO 2 tablet BID HUSAM Administration Sodium Chloride 10 - 40 ml 10/25/19 14:09 IV UD PRN SALINE FLUSH Tuberculin PPD 5 tu 11/02/19 10:00 Tubersol, Aplisol, Ppd ID 11/02/19 10:01 X1 ONE Problem List Debility (Acute) Dehydration (Acute) Acute kidney injury (Acute) Adrenal insufficiency (Acute) Low back pain (Chronic) Diabetes mellitus (Chronic) Hypertension (Chronic) Body mass index (BMI) 45.0-49.9, adult (Chronic) Muscle spasm (Chronic) Nausea (Chronic) Vital Signs Temp Pulse Resp BP Pulse Ox 97.2 F L 69 16 156/63 H 94 10/25/19 13:46 10/26/19 05:37 10/25/19 13:46 10/26/19 05:37 10/25/19 13:46 Oxygen Delivery Method Room Air Weight: 106.64 kg Body Mass Index (BMI) 47.5 Sodium 134 mmol/L (136-145) L 10/26/19 05:29 Potassium 4.3 mmol/L (3.5-5.1) 10/26/19 05:29 Chloride 101 mmol/L (98-107) 10/26/19 05:29 Carbon Dioxide 28.0 mmol/L (21.0-32.0) 10/26/19 05:29 Anion Gap 5 (5-15) 10/26/19 05:29 BUN 14 mg/dL (7-18) 10/26/19 05:29 Creatinine 0.70 mg/dL (0.55-1.02) 10/26/19 05:29 Est GFR (MDRD) Af Amer 104 mL/min (>60) 10/26/19 05:29 Est GFR (MDRD) Non-Af 86 mL/min (>60) 10/26/19 05:29 BUN/Creatinine Ratio 20.1 RATIO (10-20) H 10/26/19 05:29 Glucose 131 mg/dL (74-106) H 10/26/19 05:29 Assessment/Plan: 1) Pain APAP for pain 1-3, oxycodone for pain score 4-10, baclofen for muscle spasm. Continue to monitor daily pain scores, prn medication use. 2) HTN Amlodipine, labetalol, hydralazine. Continue to monitor BP/HR. 3) DM2 Glimepiride, linagliptin. Continue to monitor BGT, renal function, s/s hyper/hypoglycemia. 4) ID Cefdinir for UTI thru 10/27. Continue to monitor s/s infection. 5) Adrenal Insufficiency Hydrocortisone. Continue to monitor clinically. 6) DVT PPx Enoxaparin. Continue to monitor for bleeding/clot. 7) GI Ondansetron prn for nausea. Continue to monitor prn medication use, for N/V. 8) Insomnia Melatonin at HS prn. Continue to monitor prn medication use, for insomnia. Psychotropic Medications: None Unnecessary Medications: None Bowel Regimen: 9) Senna/s, PEG, prn bisacodyl. Continue to monitor prn medication use, for constipation/diarrhea. Date of Note:: 10/26/19 - Provider Comments Provider responsibility: Provider responsible to enter orders to implement recommendations <AustinJairo Chi - Last Filed: 10/26/19 12:43> Progress Note - Pharmacy Subjective: [] Objective: Allergies Penicillins Allergy (Verified 10/20/19 17:14) Hives adhesive tape Adverse Reaction (Verified 10/25/19 14:17) Other Current Medications Generic Name Dose Route Start Last Admin Trade Name Freq PRN Reason Stop Dose Admin Acetaminophen 1,000 mg 10/25/19 20:44 10/26/19 10:53 Tylenol PO 1,000 mg Q6H PRN PRN Administration Pain Score 1-3/10 Amlodipine Besylate 10 mg 10/26/19 06:00 10/26/19 05:36 Norvasc PO 10 mg DAILY HUSAM Administration Baclofen 10 mg 10/25/19 20:37 Lioresal PO TID PRN MUSCLE SPASM Bisacodyl 10 mg 10/25/19 20:39 Dulcolax PO DAILY PRN Constipation Calamine/Phenol 1 applic 10/25/19 18:00 10/26/19 05:43 Calmoseptine Ointment TOPICAL 1 applicatio BID [facility] Administration Protocol Cefdinir 300 mg 10/25/19 18:00 10/26/19 05:36 Omnicef [Equiv] PO 10/28/19 23:59 300 mg Q12 HUSAM Administration Enoxaparin Sodium 40 mg 10/26/19 06:00 10/26/19 05:36 Lovenox SC 40 mg DAILY@0600 HUSAM Administration Glimepiride 1 mg 10/26/19 07:30 10/26/19 08:24 Amaryl PO 1 mg DAILY@0730 [facility]USAM Administration Hydralazine HCl 25 mg 10/25/19 14:00 10/26/19 05:37 Apresoline PO 25 mg TID [facility]USAM Administration Hydrocortisone 5 mg 10/25/19 17:00 10/26/19 08:24 Cortef PO 5 mg BIDCM [facility]USAM Administration Labetalol HCl 100 mg 10/25/19 18:00 10/26/19 05:36 Trandate PO 100 mg BID [facility]USAM Administration Linagliptin 5 mg 10/26/19 06:00 10/26/19 05:36 Tradjenta PO 5 mg DAILY [facility]USAM Administration Melatonin 3 mg 10/25/19 13:59 Melatonin PO QHS PRN PRN INSOMNIA Nutritional Formula (Lactose Free) 120 ml 10/25/19 17:00 10/26/19 12:21 Glucerna Shake PO 120 ml 4X/DAY [facility]USAM Administration Nystatin 1 applic 10/25/19 18:00 10/26/19 05:44 Mycostatin Powder TOPICAL 1 applicatio BID [facility] Administration Protocol Ondansetron HCl 4 mg 10/25/19 13:59 Zofran Odt PO Q6H PRN PRN NAUSEA Oxycodone HCl 5 mg 10/25/19 20:38 10/26/19 10:52 Oxyir PO 5 mg Q4H PRN PRN Administration Pain Score 4-10/10 Polyethylene Glycol 17 gm 10/26/19 06:00 10/26/19 05:36 Miralax PO 17 gm DAILY [facility]USAM Administration Senna/Docusate Sodium 2 tablet 10/26/19 06:00 10/26/19 05:36 Senokot-S, Kay-Colace PO 2 tablet BID [facility]USAM Administration Sodium Chloride 10 - 40 ml 10/25/19 14:09 IV UD PRN SALINE FLUSH Tuberculin PPD 5 tu 11/02/19 10:00 Tubersol, Aplisol, Ppd ID 11/02/19 10:01 X1 ONE Problem List Debility (Acute) Dehydration (Acute) Acute kidney injury (Acute) Adrenal insufficiency (Acute) Low back pain (Chronic) Diabetes mellitus (Chronic) Hypertension (Chronic) Body mass index (BMI) 45.0-49.9, adult (Chronic) Muscle spasm (Chronic) Nausea (Chronic) Vital Signs Temp Pulse Resp BP Pulse Ox 97.2 F L 69 16 156/63 H 94 10/25/19 13:46 10/26/19 05:37 10/25/19 13:46 10/26/19 05:37 10/25/19 13:46 Oxygen Delivery Method Room Air Weight: 106.64 kg Body Mass Index (BMI) 47.5 Sodium 134 mmol/L (136-145) L 10/26/19 05:29 Potassium 4.3 mmol/L (3.5-5.1) 10/26/19 05:29 Chloride 101 mmol/L (98-107) 10/26/19 05:29 Carbon Dioxide 28.0 mmol/L (21.0-32.0) 10/26/19 05:29 Anion Gap 5 (5-15) 10/26/19 05:29 BUN 14 mg/dL (7-18) 10/26/19 05:29 Creatinine 0.70 mg/dL (0.55-1.02) 10/26/19 05:29 Est GFR (MDRD) Af Amer 104 mL/min (>60) 10/26/19 05:29 Est GFR (MDRD) Non-Af 86 mL/min (>60) 10/26/19 05:29 BUN/Creatinine Ratio 20.1 RATIO (10-20) H 10/26/19 05:29 Glucose 131 mg/dL (74-106) H 10/26/19 05:29 Assessment/Plan: Psychotropic Medications: Unnecessary Medications: Bowel Regimen: - Provider Comments Provider responsibility: Provider responsible to enter orders to implement recommendations Provider Comments to Recommendations by Pharmacy: Agree
[2019-10-26] MEDS: oxyCODONE 5 MG Tablet PO ×3 (10:52→23:00)
[2019-10-26] MEDS: Acetaminophen 500 MG Tablet 1000 MG PO ×2 (10:53→17:12)
[2019-10-26] MEDS: Tuberculin,Purif.prot.deriv. 50 TU/ML Vial 5 ML ID (11:01)
[2019-10-26 11:21] LABS: Bedside Glucose 188 mg/dL (70-110)
[2019-10-26 13:30] VITALS: PULSE 72
[2019-10-26 14:09] VITALS: BP 144/54; PULSE 70; RESP 16; TEMP 36.9; O2SAT 98
--- NOTE | 2019-10-26 15:00 | CASEMGMT ---
Social Work Reviewed and agreed with social work technical intern documentation on this date. Manisha Conklin, MECHANICAL MANUFACTURING TECHNICIAN STITCHER SPECIAL MACHINE
[2019-10-26 16:36] LABS: Bedside Glucose 135 mg/dL (70-110)
[2019-10-26 20:43] VITALS: BP 148/54; PULSE 68
[2019-10-26 21:16] LABS: Bedside Glucose 179 mg/dL (70-110)
[2019-10-27 05:33] VITALS: BP 162/45; PULSE 71
[2019-10-27] MEDS: Cefdinir 300 MG Capsule PO ×2 (05:33→17:47)
[2019-10-27] MEDS: LINAGLIPTIN 5 MG TABLET PO (05:33)
[2019-10-27] MEDS: amLODIPine 10 MG Tablet PO (05:33)
[2019-10-27] MEDS: Senna/Docusate Sodium 1 Tablet 2 TABLET PO ×2 (05:33→17:48)
[2019-10-27] MEDS: Labetalol 100 MG Tablet PO ×2 (05:33→17:48)
[2019-10-27] MEDS: hydrALAZINE 25 MG Tablet PO ×3 (05:33→20:07)
[2019-10-27] MEDS: Enoxaparin 40 MG/0.4 ML Syringe SC (05:34)
[2019-10-27] MEDS: Polyethylene Glycol 3350 17 GM PACKET PO (05:34)
[2019-10-27] MEDS: oxyCODONE 5 MG Tablet PO ×2 (05:38→22:23)
[2019-10-27] MEDS: Menthol/Lanolin/Calamine/Znox 113 GM Tube 1 APPLIC TOPICAL ×2 (05:40→17:46)
[2019-10-27] MEDS: Nystatin Powder 15gm Bottle 1 APPLIC TOPICAL ×2 (05:40→17:47)
[2019-10-27 06:20] LABS: Bedside Glucose 112 mg/dL (70-110)
[2019-10-27] MEDS: Glimepiride 1 MG Tablet PO (08:32)
[2019-10-27] MEDS: Hydrocortisone 10 MG Tablet 5 MG PO ×2 (08:32→17:45)
[2019-10-27] MEDS: Glucerna Shake 120 ML LIQUID PO ×3 (08:33→17:46)
[2019-10-27] MEDS: Acetaminophen 500 MG Tablet 1000 MG PO ×2 (08:37→13:48)
[2019-10-27 11:25] LABS: Bedside Glucose 164 mg/dL (70-110)
[2019-10-27 13:52] VITALS: BP 162/45; PULSE 71
[2019-10-27 14:04] VITALS: BP 140/62; PULSE 64; RESP 18; TEMP 36.8; O2SAT 97
--- NOTE | 2019-10-27 14:49 | NURSING ---
MEPILEX DRESSING APPLIED TO L.ELBOW. PT. REPORTS SORENESS. ELBOW BRUISED WITH SOME SKIN BREAKDOWN BUT SKIN INTACT.
[2019-10-27 17:00] LABS: Bedside Glucose 120 mg/dL (70-110)
[2019-10-27 20:07] VITALS: BP 144/59; PULSE 68
[2019-10-27 21:21] LABS: Bedside Glucose 138 mg/dL (70-110)
[2019-10-28 06:10] VITALS: BP 158/71; PULSE 72
[2019-10-28] MEDS: Labetalol 100 MG Tablet PO ×2 (06:10→17:06)
[2019-10-28] MEDS: LINAGLIPTIN 5 MG TABLET PO (06:10)
[2019-10-28] MEDS: hydrALAZINE 25 MG Tablet PO ×3 (06:10→20:31)
[2019-10-28] MEDS: Senna/Docusate Sodium 1 Tablet 2 TABLET PO (06:10)
[2019-10-28] MEDS: Enoxaparin 40 MG/0.4 ML Syringe SC (06:10)
[2019-10-28] MEDS: amLODIPine 10 MG Tablet PO (06:11)
[2019-10-28] MEDS: Polyethylene Glycol 3350 17 GM PACKET PO (06:11)
[2019-10-28] MEDS: Cefdinir 300 MG Capsule PO ×2 (06:11→17:06)
[2019-10-28] MEDS: Menthol/Lanolin/Calamine/Znox 113 GM Tube 1 APPLIC TOPICAL ×2 (06:12→17:03)
[2019-10-28] MEDS: Nystatin Powder 15gm Bottle 1 APPLIC TOPICAL ×2 (06:12→16:57)
[2019-10-28 06:25] LABS: Bedside Glucose 116 mg/dL (70-110)
[2019-10-28] MEDS: Hydrocortisone 10 MG Tablet 5 MG PO ×2 (07:52→16:55)
[2019-10-28] MEDS: Glimepiride 1 MG Tablet PO (07:52)
[2019-10-28] MEDS: Glucerna Shake 120 ML LIQUID PO ×3 (07:54→16:52)
[2019-10-28 10:46] VITALS: O2SAT 98
[2019-10-28 11:20] LABS: Bedside Glucose 179 mg/dL (70-110)
[2019-10-28] MEDS: Acetaminophen 500 MG Tablet 1000 MG PO ×2 (12:02→20:31)
[2019-10-28] MEDS: oxyCODONE 5 MG Tablet PO ×2 (12:04→20:32)
--- NOTE | 2019-10-28 12:59 | NURSING ---
RESIDENT STRAIGHT CATHED AT THIS TIME. 550 ML OUT. URINE YELLOW WITH SEDIMENT NO ODOR. RESIDENT TOLERATED PROCEDURE FAIR. WILL UPDATE DR. TREVINO ON VAGINAL PAIN AND REDNESS.
[2019-10-28 14:01] VITALS: BP 158/75; PULSE 69; RESP 20; TEMP 36.6; O2SAT 98
[2019-10-28 14:50] VITALS: PULSE 74
[2019-10-28] MEDS: FLUCONAZOLE 150 MG TABLET PO (17:06)
--- NOTE | 2019-10-28 18:17 | NURSING ---
Resident straight cathed at this time for 900 ml of yellow urine with minimal sediment. Resident tolerated well.
[2019-10-28 20:31] VITALS: BP 142/53; PULSE 68
--- NOTE | 2019-10-29 00:51 | NURSING ---
Patient straight cathed at this time for 800cc of yellow clear urine. Patient tolerated procedure well.
--- NOTE | 2019-10-29 05:30 | NURSING ---
Patient bladder scanned for 639 after trying to void on bedpan and not being able to. Patient has been straight cathed x 3. Dr. Avila notified of this. Orders given to insert Canela. Canela inserted. Patient with an instant return of 750 cc of yellow urine with some sediment. Patient tolerated procedure well.
[2019-10-29] MEDS: Acetaminophen 500 MG Tablet 1000 MG PO ×3 (05:35→21:35)
[2019-10-29] MEDS: oxyCODONE 5 MG Tablet PO ×3 (05:35→20:51)
[2019-10-29 05:36] VITALS: BP 157/61; PULSE 67
[2019-10-29] MEDS: hydrALAZINE 25 MG Tablet PO ×3 (05:36→20:53)
[2019-10-29] MEDS: LINAGLIPTIN 5 MG TABLET PO (05:37)
[2019-10-29] MEDS: Menthol/Lanolin/Calamine/Znox 113 GM Tube 1 APPLIC TOPICAL ×2 (05:37→17:04)
[2019-10-29] MEDS: Polyethylene Glycol 3350 17 GM PACKET PO (05:37)
[2019-10-29] MEDS: Enoxaparin 40 MG/0.4 ML Syringe SC (05:37)
[2019-10-29] MEDS: Labetalol 100 MG Tablet PO ×2 (05:38→17:15)
[2019-10-29] MEDS: Senna/Docusate Sodium 1 Tablet 2 TABLET PO (05:38)
[2019-10-29] MEDS: amLODIPine 10 MG Tablet PO (05:38)
[2019-10-29] MEDS: Nystatin Powder 15gm Bottle 1 APPLIC TOPICAL ×2 (05:41→17:05)
[2019-10-29 06:16] LABS: Bedside Glucose 131 mg/dL (70-110)
[2019-10-29 07:45] VITALS: O2SAT 97
[2019-10-29] MEDS: Glucerna Shake 120 ML LIQUID PO ×3 (08:34→17:05)
[2019-10-29] MEDS: Hydrocortisone 10 MG Tablet 5 MG PO ×2 (08:35→17:03)
[2019-10-29] MEDS: Glimepiride 1 MG Tablet PO (08:35)
[2019-10-29 13:33] VITALS: BP 152/61; PULSE 64; RESP 16; TEMP 36.7; O2SAT 96
[2019-10-29 14:32] VITALS: PULSE 68
--- NOTE | 2019-10-29 16:06 | CHAPLAIN ---
Type of Pastoral Visit _x__ Initial Visit ___ Follow-up Visit ___ On-call Visit ___ General Patient Visit ___ Spiritual Assessment ___ Family Conference ___ Bereavement ___ Rapid Response ___ Code Blue ___ Other (describe below) Pastoral Care Referral From _x__ Patient ___ Family ___ Nurse ___ Physician ___ Cash Applications Representative ___ Environment Coordinator ___ Other (describe below) Sacrament/Intervention _x__ Active listening ___ Anointing ___ Church ___ Bereavement ___ Communion ___ Jenny exploration ___ _x__ Life review ___ Prayer ___ Reconciliation ___ Sacrament of Sick ___ Supportive presence ___ Wedding ___ Other (describe below) Pastoral Comments
--- NOTE | 2019-10-29 16:25 | CASEMGMT ---
Social Work Met with pt to provide emotional support d/t isolation precautions. Provided pt with card/picture from community member. Alicia Ibarra, social work pricing intern Manisha Conklin, METAL FABRICATOR FULFILLMENT MAIL CLERK
[2019-10-29] MEDS: Baclofen 10 MG Tablet PO (17:11)
[2019-10-29 20:53] VITALS: BP 150/61; PULSE 91
[2019-10-30] MEDS: Baclofen 10 MG Tablet PO ×2 (02:41→18:02)
[2019-10-30] MEDS: oxyCODONE 5 MG Tablet PO ×4 (02:50→21:05)
[2019-10-30] MEDS: Enoxaparin 40 MG/0.4 ML Syringe SC (06:06)
[2019-10-30] MEDS: Polyethylene Glycol 3350 17 GM PACKET PO (06:07)
[2019-10-30] MEDS: Menthol/Lanolin/Calamine/Znox 113 GM Tube 1 APPLIC TOPICAL ×2 (06:07→17:58)
[2019-10-30] MEDS: Labetalol 100 MG Tablet PO ×2 (06:08→18:04)
[2019-10-30] MEDS: Acetaminophen 500 MG Tablet 1000 MG PO ×3 (06:08→21:37)
[2019-10-30] MEDS: amLODIPine 10 MG Tablet PO (06:08)
[2019-10-30] MEDS: LINAGLIPTIN 5 MG TABLET PO (06:08)
[2019-10-30 06:09] VITALS: PULSE 66
[2019-10-30] MEDS: hydrALAZINE 25 MG Tablet PO ×3 (06:09→21:05)
[2019-10-30] MEDS: Nystatin Powder 15gm Bottle 1 APPLIC TOPICAL ×2 (06:13→17:59)
[2019-10-30 06:16] LABS: Bedside Glucose 88 mg/dL (70-110)
[2019-10-30 07:47] VITALS: O2SAT 97
[2019-10-30] MEDS: Glucerna Shake 120 ML LIQUID PO ×3 (08:07→18:03)
[2019-10-30] MEDS: Glimepiride 1 MG Tablet PO (08:08)
[2019-10-30] MEDS: Hydrocortisone 10 MG Tablet 5 MG PO ×2 (08:08→18:04)
[2019-10-30 12:47] VITALS: PULSE 72
[2019-10-30 13:55] VITALS: BP 153/53; PULSE 73; RESP 24; TEMP 36.7; O2SAT 97
[2019-10-30 21:05] VITALS: BP 155/60; PULSE 74
[2019-10-31] MEDS: oxyCODONE 5 MG Tablet PO ×3 (02:14→21:52)
[2019-10-31] MEDS: LINAGLIPTIN 5 MG TABLET PO (04:29)
[2019-10-31] MEDS: FLUCONAZOLE 150 MG TABLET PO (04:29)
[2019-10-31] MEDS: amLODIPine 10 MG Tablet PO (04:29)
[2019-10-31] MEDS: Labetalol 100 MG Tablet PO ×2 (04:29→17:37)
[2019-10-31 04:30] VITALS: BP 148/57; PULSE 66
[2019-10-31] MEDS: hydrALAZINE 25 MG Tablet PO ×3 (04:30→21:51)
[2019-10-31] MEDS: Enoxaparin 40 MG/0.4 ML Syringe SC (04:30)
[2019-10-31] MEDS: Menthol/Lanolin/Calamine/Znox 113 GM Tube 1 APPLIC TOPICAL ×2 (04:32→17:36)
[2019-10-31] MEDS: Nystatin Powder 15gm Bottle 1 APPLIC TOPICAL ×2 (04:34→17:35)
[2019-10-31 06:16] LABS: Bedside Glucose 100 mg/dL (70-110)
[2019-10-31] MEDS: Hydrocortisone 10 MG Tablet 5 MG PO ×2 (07:42→17:34)
[2019-10-31] MEDS: Glimepiride 1 MG Tablet PO (07:42)
[2019-10-31] MEDS: Glucerna Shake 120 ML LIQUID PO ×3 (07:45→17:34)
[2019-10-31 07:52] VITALS: O2SAT 98
[2019-10-31] MEDS: Acetaminophen 500 MG Tablet 1000 MG PO ×2 (11:51→21:51)
[2019-10-31 13:11] VITALS: BP 130/54; PULSE 70; RESP 18; TEMP 36.6; O2SAT 97
[2019-10-31 13:19] VITALS: BP 130/64; PULSE 70
[2019-10-31 21:51] VITALS: BP 146/82; PULSE 68
[2019-10-31 21:56] LABS: Bedside Glucose 130 mg/dL (70-110)
--- NOTE | 2019-11-01 00:02 | RAD_ITS ---
STUDY: X-RAY - ABDOMEN/PELVIS REASON FOR EXAM: Female, 79 years old. NAUSEA TECHNIQUE: Single AP view of the abdomen / pelvis. COMPARISON: None. FINDINGS: Normal visualized lung bases. There is nonspecific increased gas pattern with mild distention of both small bowel and colon. No significant dilatation to suggest obstruction. There is no demonstrated free abdominal air. The visualized liver, spleen and kidneys are grossly normal in size and morphology. Normal soft tissue structures. There are diffuse degenerative changes of the visualized lumbar spine. RAD/Abdomen Single View IMPRESSION: Nonspecific increase gas pattern. No signs of bowel obstruction or free air. Electronically Signed: Leticia Pham MD at 0:30 EDT , Service support ,
[2019-11-01] MEDS: oxyCODONE 5 MG Tablet PO ×2 (03:26→20:01)
[2019-11-01] MEDS: Enoxaparin 40 MG/0.4 ML Syringe SC (05:25)
[2019-11-01] MEDS: Senna/Docusate Sodium 1 Tablet 2 TABLET PO ×2 (05:25→16:56)
[2019-11-01 05:26] VITALS: BP 161/76; PULSE 67
[2019-11-01] MEDS: LINAGLIPTIN 5 MG TABLET PO (05:26)
[2019-11-01] MEDS: hydrALAZINE 25 MG Tablet PO ×3 (05:26→20:02)
[2019-11-01] MEDS: Acetaminophen 500 MG Tablet 1000 MG PO (05:26)
[2019-11-01] MEDS: amLODIPine 10 MG Tablet PO (05:27)
[2019-11-01] MEDS: Labetalol 100 MG Tablet PO ×2 (05:28→16:56)
[2019-11-01] MEDS: Nystatin Powder 15gm Bottle 1 APPLIC TOPICAL ×2 (05:31→16:59)
[2019-11-01] MEDS: Menthol/Lanolin/Calamine/Znox 113 GM Tube 1 APPLIC TOPICAL ×2 (05:31→16:58)
[2019-11-01 06:16] LABS: Bedside Glucose 126 mg/dL (70-110)
[2019-11-01 06:29] VITALS: O2SAT 94
[2019-11-01] MEDS: Glucerna Shake 120 ML LIQUID PO ×3 (07:44→16:56)
[2019-11-01] MEDS: Hydrocortisone 10 MG Tablet 5 MG PO ×2 (07:44→16:56)
[2019-11-01] MEDS: Glimepiride 1 MG Tablet PO (07:44)
[2019-11-01] MEDS: Magnesium Citrate 300 ML PO (08:37)
[2019-11-01 09:37] VITALS: PULSE 64; RESP 16; O2SAT 98
[2019-11-01 11:01] LABS: Bedside Glucose 160 mg/dL (70-110)
[2019-11-01 14:22] VITALS: BP 154/66; PULSE 70; RESP 18; TEMP 36.6; O2SAT 97
[2019-11-01 14:38] VITALS: PULSE 70
--- NOTE | 2019-11-01 16:50 | CASEMGMT ---
Social Work Reviewed and agreed with social work sports apparel internship documentation on this date. Manisha Conklin, PROTOTYPE DEICER ASSEMBLER TMD TEACHER
[2019-11-01 20:02] VITALS: BP 156/63; PULSE 64
[2019-11-01] MEDS: Baclofen 10 MG Tablet PO (21:48)
--- NOTE | 2019-11-02 02:26 | NURSING ---
Pt attempted to void x3 after israel removed, unable to. Bladder scanned for 505ml, straight cathed using sterile technique per order, clear yellow urine returned. Pt tolerated well.
[2019-11-02] MEDS: oxyCODONE 5 MG Tablet PO ×3 (04:42→20:50)
[2019-11-02 04:43] VITALS: BP 147/74; PULSE 72
[2019-11-02] MEDS: hydrALAZINE 25 MG Tablet PO ×3 (04:43→19:59)
[2019-11-02] MEDS: LINAGLIPTIN 5 MG TABLET PO (04:44)
[2019-11-02] MEDS: amLODIPine 10 MG Tablet PO (04:44)
[2019-11-02] MEDS: Enoxaparin 40 MG/0.4 ML Syringe SC (04:45)
[2019-11-02] MEDS: Nystatin Powder 15gm Bottle 1 APPLIC TOPICAL ×2 (04:47→16:45)
[2019-11-02] MEDS: Menthol/Lanolin/Calamine/Znox 113 GM Tube 1 APPLIC TOPICAL ×2 (04:47→16:44)
[2019-11-02 06:30] LABS: Bedside Glucose 119 mg/dL (70-110)
[2019-11-02] MEDS: Glucerna Shake 120 ML LIQUID PO ×3 (06:36→16:47)
[2019-11-02] MEDS: Labetalol 100 MG Tablet PO ×2 (06:37→16:44)
[2019-11-02] MEDS: Glimepiride 1 MG Tablet PO (06:39)
[2019-11-02 07:11] LABS: Absolute Lymphocyte Count 1.27 X10^3/uL (0.83-4.51); Basophil# 0.04 X10^3/uL; Basophil% 0.4 % (0-1); Eosinophils% 2.9 % (0-5); Hematocrit 35.8 % (37-47); Hemoglobin 11.7 g/dL (12.0-15.0); Lymphocyte # 1.27 X10^3/ul (4.0); Lymphocyte % 12.1 % (19-41); Mean Corp Hgb Conc 32.7 g/dL (32-36); Mean Corpuscular Hgb 29.5 pg (27.0-32.0); Mean Corpuscular Volume 90.2 fL (81-99); Mean Platelet Vol. 9.3 fl (6.2-12.0); Monocyte# 0.78 X10^3/uL; Monocyte% 7.4 % (0-10); NRBC Flagged by Analyzer 0 % (0-5); Neutrophil % 76.3 % (47-70); Platelet Count 392 K/mm3 (150-450); RBC Distribution Width CV 14.5 % (11.6-14.6); RBC Distribution Width SD 47.1 fl (35.1-43.9); Red Blood Count 3.97 M/mm3 (4.2-5.4); White Blood Count 10.5 K/mm3 (4.4-11.0)
[2019-11-02 07:33] LABS: Anion Gap 8 (5-15); BUN 16 mg/dL (7-18); BUN/Creat Ratio 21.2 RATIO (10-20); Calcium,Total 9.6 mg/dL (8.5-10.1); Chloride 96 mmol/L (98-107); Creatinine, Serum 0.75 mg/dL (0.55-1.02); EST Glomerular Filtration Rate 79 mL/min (>60); Est Glom Filt Rate - Afr Amer 95 mL/min (>60); Estimated Creatinine Clearance 75.54 ml/min; Glucose 110 mg/dL (74-106); Potassium 4.1 mmol/L (3.5-5.1); Sodium Level 133 mmol/L (136-145)
[2019-11-02] MEDS: Hydrocortisone 10 MG Tablet 5 MG PO ×2 (08:03→16:43)
[2019-11-02] MEDS: Tuberculin,Purif.prot.deriv. 50 TU/ML Vial 5 ML ID (11:10)
[2019-11-02 11:13] VITALS: O2SAT 94
[2019-11-02 13:17] VITALS: PULSE 70
[2019-11-02 13:47] VITALS: BP 142/49; PULSE 70; RESP 14; TEMP 36.4; O2SAT 93
--- NOTE | 2019-11-02 17:24 | NURSING ---
Canela catheter inserted at this time. Resident tolerated procedure well.
[2019-11-02 19:49] VITALS: BP 138/67; PULSE 71; RESP 18; TEMP 36.6; O2SAT 96
[2019-11-02] MEDS: Acetaminophen 500 MG Tablet 1000 MG PO (19:58)
[2019-11-02 19:59] VITALS: BP 138/67; PULSE 71
[2019-11-03] MEDS: oxyCODONE 5 MG Tablet PO ×4 (00:50→21:16)
[2019-11-03 06:21] LABS: Bedside Glucose 115 mg/dL (70-110)
[2019-11-03] MEDS: Nystatin Powder 15gm Bottle 1 APPLIC TOPICAL ×2 (06:24→17:23)
[2019-11-03] MEDS: Glucerna Shake 120 ML LIQUID PO ×3 (06:24→17:20)
[2019-11-03] MEDS: Menthol/Lanolin/Calamine/Znox 113 GM Tube 1 APPLIC TOPICAL ×2 (06:24→17:23)
[2019-11-03 06:26] VITALS: BP 131/57; PULSE 71; RESP 18; TEMP 36.7; O2SAT 95
[2019-11-03 06:28] VITALS: BP 131/57; PULSE 71
[2019-11-03] MEDS: hydrALAZINE 25 MG Tablet PO ×3 (06:28→21:17)
[2019-11-03] MEDS: amLODIPine 10 MG Tablet PO (06:28)
[2019-11-03] MEDS: Labetalol 100 MG Tablet PO ×2 (06:28→17:20)
[2019-11-03] MEDS: LINAGLIPTIN 5 MG TABLET PO (06:28)
[2019-11-03] MEDS: Enoxaparin 40 MG/0.4 ML Syringe SC (06:28)
[2019-11-03] MEDS: Senna/Docusate Sodium 1 Tablet 2 TABLET PO (06:29)
[2019-11-03] MEDS: FLUCONAZOLE 150 MG TABLET PO (06:29)
[2019-11-03] MEDS: Glimepiride 1 MG Tablet PO (06:33)
[2019-11-03] MEDS: Hydrocortisone 10 MG Tablet 5 MG PO ×2 (07:52→17:20)
[2019-11-03 07:57] VITALS: PULSE 77; RESP 18; O2SAT 94
--- NOTE | 2019-11-03 10:59 | NURSING ---
Addendum entered by Dian Mcelroy 11/03/19 14:35: Dr Jain returned call and reported that she will see pt, there was confusion. Addendum entered by Dian Mcelroy 11/03/19 12:15: Attempted to page Dr Jain via straightening press operator helper for consult, straightening press operator helper states she is not doing consults rest of this month. will update Dr Avila. Original Note: message left with Dr Jain's office for consult order d/t urinary retention. awaiting return call.
--- NOTE | 2019-11-03 11:34 | CASEMGMT ---
Social Work IDT met with patient, and son via conference call for care plan meeting. Discussed patient's progress in therapy. Pt is mod assist for bed mobility, min assist for transfers, walking 40 ft with FWW CGA, stairs have not been tested yet. Pt is limited by pain. Encouraged pt to take pain medication. Notified nurse to review meds. Pt is min assist for toilet transfers, dependent for tasks, min assist for UE ADLS, max assist for LE ADLs. Pt is listening to country music on CD player, and shared travelling stories. Pt is on cardiac 1800 calorie diet. Intake is variable, ordered med pass and Glucerna. Working to wean pt off O2 but israel remains in place as multiple attempts to take out were unsuccessful. Pt lives at home with her spouse with 6 steps to enter. Explained insurance with [employer] 11/02 and continued stay is not guaranteed. Pt goal is to return home at PLOF. Will continue to follow. Manisha Conklin, ALIYAH VIBRATING SCREEN OPERATOR
[2019-11-03 14:06] VITALS: BP 117/49; PULSE 78; RESP 16; TEMP 36.9; O2SAT 97
[2019-11-03 15:19] VITALS: PULSE 78
[2019-11-03] MEDS: Acetaminophen 500 MG Tablet 1000 MG PO ×2 (15:19→21:21)
--- NOTE | 2019-11-03 16:08 | CASEMGMT ---
Social Work Reviewed and agreed with social work rn intern documentation on this date. Manisha Conklin, INSTALLATION TECHNICIAN PAINTER HAND
--- NOTE | 2019-11-03 16:58 | NURSING ---
pt concerned about lower blood sugars, dr johnson updated, new order to DC alhaji and amcarlyn.
[2019-11-03 21:17] VITALS: BP 148/60; PULSE 69
[2019-11-04] MEDS: oxyCODONE 5 MG Tablet PO ×3 (05:46→20:47)
[2019-11-04] MEDS: Enoxaparin 40 MG/0.4 ML Syringe SC (05:47)
[2019-11-04] MEDS: Acetaminophen 500 MG Tablet 1000 MG PO ×2 (05:47→23:51)
[2019-11-04] MEDS: Labetalol 100 MG Tablet PO ×2 (05:48→17:49)
[2019-11-04] MEDS: amLODIPine 10 MG Tablet PO (05:48)
[2019-11-04 05:49] VITALS: BP 170/67; PULSE 72
[2019-11-04] MEDS: Menthol/Lanolin/Calamine/Znox 113 GM Tube 1 APPLIC TOPICAL ×2 (05:49→17:02)
[2019-11-04] MEDS: Nystatin Powder 15gm Bottle 1 APPLIC TOPICAL ×2 (05:49→17:02)
[2019-11-04] MEDS: hydrALAZINE 25 MG Tablet PO ×3 (05:49→20:46)
[2019-11-04 06:16] LABS: Bedside Glucose 120 mg/dL (70-110)
[2019-11-04] MEDS: Glucerna Shake 120 ML LIQUID PO ×3 (08:02→16:58)
[2019-11-04] MEDS: Hydrocortisone 10 MG Tablet 5 MG PO ×2 (08:02→17:00)
--- NOTE | 2019-11-04 09:59 | MDS.RN ---
Information for the mds was obtained from review of the clinical record, interview of resident, staff, and direct observation of resident's care.
[2019-11-04 13:44] VITALS: BP 148/55; PULSE 77; RESP 18; TEMP 36.3; O2SAT 96
[2019-11-04 13:46] VITALS: PULSE 77
[2019-11-04] MEDS: Senna/Docusate Sodium 1 Tablet 2 TABLET PO (16:59)
[2019-11-04 20:46] VITALS: BP 145/48; PULSE 70
[2019-11-04] MEDS: Baclofen 10 MG Tablet PO (23:51)
[2019-11-05 05:51] VITALS: BP 148/51; PULSE 69
[2019-11-05] MEDS: amLODIPine 10 MG Tablet PO (05:51)
[2019-11-05] MEDS: Labetalol 100 MG Tablet PO ×2 (05:51→17:12)
[2019-11-05] MEDS: Senna/Docusate Sodium 1 Tablet 2 TABLET PO (05:51)
[2019-11-05] MEDS: Enoxaparin 40 MG/0.4 ML Syringe SC (05:51)
[2019-11-05] MEDS: hydrALAZINE 25 MG Tablet PO ×3 (05:51→20:51)
[2019-11-05] MEDS: Nystatin Powder 15gm Bottle 1 APPLIC TOPICAL ×2 (05:54→17:14)
[2019-11-05] MEDS: Menthol/Lanolin/Calamine/Znox 113 GM Tube 1 APPLIC TOPICAL ×2 (05:54→17:14)
[2019-11-05 06:31] LABS: Bedside Glucose 128 mg/dL (70-110)
[2019-11-05] MEDS: oxyCODONE 5 MG Tablet PO ×3 (07:02→17:12)
[2019-11-05] MEDS: Hydrocortisone 10 MG Tablet 5 MG PO ×2 (07:49→17:12)
[2019-11-05] MEDS: Glucerna Shake 120 ML LIQUID PO ×3 (07:49→17:11)
--- NOTE | 2019-11-05 09:36 | NURSING ---
Addendum entered by Dian Mcelroy 11/05/19 11:35: dr avila notified of xray results, medrol dose josie ordered. Original Note: therapy concerned that pt LT hip pain restricting her from going home. Dr Avila updated, new order for xray.
--- NOTE | 2019-11-05 09:40 | RAD_ITS ---
STUDY: X-RAY - PELVIS AND LEFT HIP REASON FOR EXAM: Female, 79 years old. Pain, NKI TECHNIQUE: 3 views of the pelvis and hip. COMPARISON: None. FINDINGS: There is a non-specific bowel gas pattern. Normal visualized soft tissue structures. There is narrowing with cortical sclerosis and osteophyte formation of the sacroiliac joint consistent with degenerative osteoarthritic changes. Normal bilateral superior and inferior pubic rami. There is narrowing with sclerosis of the pubic symphysis. Normal bilateral ischial tuberosities. Normal visualized femoral head. There is osteoarthritic spur formation of the acetabular rim. There is moderate articular joint space narrowing of the hip. This space narrowing and spondylosis in the lower lumbar spine. RAD/Hip Min 2 Views (Portable) IMPRESSION: Degenerative changes. No fracture or dislocation is seen. Electronically Signed: Jc Keohler, at 9:57 EDT , Service support ,
--- NOTE | 2019-11-05 11:27 | PCM.CONS.GEN ---
Problem List (1) UTI (urinary tract infection) Status: Acute (2) Urinary retention Status: Acute Reason for Consult Date of Consultation: 11/05/19 Reason for Consultation: urinary retention, urinary tract infection History of Present Illness: The patient is a 79 year old F in the TCU for dehydration, urinary tract infection, debilitation prior to transfer to nursing facility. She has had diabetes for about 15yrs. She reports voiding 5-10 times a day, more than 3 times a night. There is incontinence, she usually only wears a pad when going out. No history of retention, hematuria or issues with infections. She had a hysterectomy for ovarian cysts and does not feel her bladder is prolapsed. She denies constipation and diarrhea, no fecal incontinence. Past Medical History Past Medical History (Chronic Problems): Chronic Problems Low back pain (Chronic) Diabetes mellitus (Chronic) Hypertension (Chronic) Body mass index (BMI) 45.0-49.9, adult (Chronic) Muscle spasm (Chronic) Nausea (Chronic) Back pain (Chronic) Essential (primary) hypertension (Chronic) DM2 (diabetes mellitus, type 2) (Chronic) HLD (hyperlipidemia) (Chronic) VIN (obstructive sleep apnea) (Chronic) Morbid obesity (Chronic) Allergies Penicillins Allergy (Verified 10/20/19 17:14) Hives adhesive tape Adverse Reaction (Verified 10/25/19 14:17) Other Home Medications: Ambulatory Orders Medication Instructions Recorded Labetalol [Trandate (Beta Josiah)] 100 mg PO BID 10/09/19 Sitagliptin Phosphate [Januvia] 100 mg PO DAILY 10/09/19 cycloBENZAPRine HCl [Flexeril] 10 mg PO TID PRN PRN tab 10/13/19 Amlodipine [Norvasc] 10 mg PO DAILY 10/20/19 Glimepiride [Amaryl] 1 mg PO DAILY 10/20/19 Nut.tx.gluc.intoler,Lac-Fr,Soy 120 ml PO 4X/DAY 10/20/19 [Glucerna] Ondansetron [Zofran Odt] 4 mg PO Q6H PRN PRN 10/20/19 Oxycodone HCl/Acetaminophen 1 ea PO DAILY@0800 10/20/19 [Oxycodon-Acetaminophen 2.5-325] Oxycodone HCl/Acetaminophen 1 tab PO Q6H PRN PRN 10/20/19 [Percocet 5-325] Psyllium Husk (with Sugar) 3.4 gm PO BID 10/20/19 [Metamucil Packet] Acetaminophen [Tylenol Tablet] 650 mg PO Q6H PRN PRN tab 10/25/19 Cefdinir [Omnicef [equiv]] 300 mg PO Q12H 10/25/19 Docusate Sodium [Colace] 200 mg PO BID PRN PRN cap 10/25/19 Hydrocortisone [Cortef] 5 mg PO BIDCM 10/25/19 Mag Hydrox/Al Hydrox/Simeth 30 ml PO Q6H PRN PRN udc 10/25/19 [Mylanta II] Melatonin 3 mg PO QHS PRN PRN tab 10/25/19 Nitroglycerin (INPATIENT USE) 0.4 mg SUBLINGUAL Q5M PRN tab.subl 10/25/19 [Nitrostat] Polyethylene Glycol 3350 [Miralax] 17 gm PO DAILY 10/25/19 hydrALAZINE [Apresoline] 25 mg PO TID 10/25/19 Surgical History: appendectomy, cholecystectomy, hysterectomy, - - left knee arthroscopic surgery. Psychiatric History: No pertinent psych hx MANUGRAPHER History: No pertinent MANUGRAPHER history Lives: Detention Smoking Status: Never smoker Tobacco Use: Non-smoker Alcohol: None Drugs: None - *Family History Paternal History Items: - - Patient notes that her father at age 54, suspected secondary to heart disease complications. Maternal History Items: Hypertension Review of Systems Constitutional: Reports: Anorexia. Denies: Chills, Fever Eyes: Denies: Vision Change HEENT: Denies: Visual Changes Respiratory: Denies: Cough Gastrointestinal: Denies: Abdominal Pain, Constipation Genitourinary: Reports: Incontinence, Nocturia, Retention. Denies: Dysuria, Frequency, Hematuria, Hesitancy, Urgency Gynecological: Denies: Vaginal discharge Skin: Reports: Wounds. Denies: Rash Patient Problems: Active and Suspected Problems Debility (Acute) Dehydration (Acute) Acute kidney injury (Acute) Adrenal insufficiency (Acute) - Physical Exam Vitals/I&O's: Vital Signs Temp Pulse Resp BP Pulse Ox 97.4 F L 69 18 148/51 H 96 11/04/19 13:44 11/05/19 05:51 11/04/19 13:44 11/05/19 05:51 11/04/19 13:44 Oxygen Flow Rate (L/min) 1 Oxygen Delivery Method Room Air Weight: 99.507 kg Body Mass Index (BMI) 47.5 Intake and Output for Last 24 Hours 11/03/19 11/04/19 11/05/19 23:59 23:59 23:59 Intake Total 720 / 720 1360 / 1360 120 / 120 Output Total 850 / 850 2300 / 2300 1350 / 1350 Balance -130 / -130 -940 / -940 -1230 / -1230 General: Alert, Oriented x3, Cooperative, No apparent distress HEENT: Atraumatic, Normocephalic Oral: Moist Mucosa Neck: Trachea Midline Lungs: Normal air movement Cardiovascular: Regular rate Abdomen: Soft, Non-Distended Skin: No rashes Neurological: Cranial nerves II-XII grossly intact Psych/Mental Status: Normal Affect Comment: israel with clear yellow urine Laboratory Results 11/05/19 06:20: POC Glucose 128 H Current Medications Acetaminophen (Tylenol) 1,000 mg PO Q6H PRN PRN PRN Reason: Pain Score 1-3/10 Last Admin: 11/04/19 23:51 Dose: 1,000 mg Documented by: Amlodipine Besylate (Norvasc) 10 mg PO DAILY [facility] Last Admin: 11/05/19 05:51 Dose: 10 mg Documented by: Baclofen (Lioresal) 10 mg PO TID PRN PRN Reason: MUSCLE SPASM Last Admin: 11/04/19 23:51 Dose: 10 mg Documented by: Bisacodyl (Dulcolax) 10 mg PO DAILY PRN PRN Reason: Constipation Calamine/Phenol (Calmoseptine Ointment) 1 applic TOPICAL BID [facility]; Protocol Last Admin: 11/05/19 05:54 Dose: 1 applicatio Documented by: Enoxaparin Sodium (Lovenox) 40 mg SC DAILY@0600 [facility] Last Admin: 11/05/19 05:51 Dose: 40 mg Documented by: Hydralazine HCl (Apresoline) 25 mg PO TID [facility] Last Admin: 11/05/19 05:51 Dose: 25 mg Documented by: [facility] ([facility]) [facility] Last Admin: 11/05/19 07:49 Dose: 5 mg Documented by: Labetalol HCl (Trandate) 100 mg PO BID [facility] Last Admin: 11/05/19 05:51 Dose: 100 mg Documented by: Melatonin (Melatonin) 3 mg PO QHS PRN PRN PRN Reason: INSOMNIA Methylprednisolone (Medrol Dosepak) 12 mg PO 1200 HUSAM; Taper Stop: 11/10/19 04:59 Multi-Ingredient Cream (Eucerin) 1 applic TOPICAL 0600,2200 [facility]; Protocol Last Admin: 11/05/19 05:55 Dose: 1 applicatio Documented by: Nutritional Formula (Lactose Free) (Glucerna Shake) 120 ml PO TIDCM [facility] Last Admin: 11/05/19 07:49 Dose: 120 ml Documented by: Nystatin (Mycostatin Powder) 1 applic TOPICAL BID [facility]; Protocol Last Admin: 11/05/19 05:54 Dose: 1 applicatio Documented by: Oxycodone HCl (Oxyir) 5 mg PO Q4H PRN PRN PRN Reason: Pain Score 4-10/10 Last Admin: 11/05/19 07:02 Dose: 5 mg Documented by: Polyethylene Glycol (Miralax) 17 gm PO DAILY [facility] Last Admin: 11/05/19 05:55 Dose: Not Given Documented by: Senna/Docusate Sodium (Senokot-S, Kay-Colace) 2 tablet PO BID [facility] Last Admin: 11/05/19 05:51 Dose: 2 tablet Documented by: Sodium Chloride () 10 - 40 ml IV UD PRN PRN Reason: SALINE FLUSH Assessment/Plan All Active Problems Debility (Acute) Dehydration (Acute) Acute kidney injury (Acute) Adrenal insufficiency (Acute) Hyperkalemia (Acute) Hyponatremia (Acute) Acute renal failure (Acute) UTI (urinary tract infection) (Acute) Urinary retention (Acute) repeat urine culture avoid constipation and treat aggressively plan to continue israel for 3 more days, and when removed, recommend voiding with straight cath PVR 3 times a day. Record the residual amounts, and we can stop cathing when consistently below 150cc. Will need cystoscopy and urodynamics as an outpatient, not emergently thank you for the consult.
--- NOTE | 2019-11-05 11:44 | NURSING ---
dr caraballo in to see pt d/t urinary retention and failed voiding trials. see new order.
[2019-11-05] MEDS: MethylPREDNISolone DosePak 4 MG BOX PO ×3 (11:53→20:49)
[2019-11-05 12:27] VITALS: PULSE 76; RESP 18; O2SAT 96
[2019-11-05 14:59] VITALS: BP 141/61; PULSE 75; RESP 20; TEMP 36.3; O2SAT 94
[2019-11-05 15:06] VITALS: PULSE 75
[2019-11-05] MEDS: Acetaminophen 500 MG Tablet 1000 MG PO (17:12)
[2019-11-05 20:51] VITALS: BP 148/54; PULSE 77
[2019-11-06] MEDS: oxyCODONE 5 MG Tablet PO ×2 (01:51→20:34)
[2019-11-06] MEDS: Acetaminophen 500 MG Tablet 1000 MG PO ×2 (01:52→22:21)
[2019-11-06] MEDS: Nystatin Powder 15gm Bottle 1 APPLIC TOPICAL ×2 (05:08→17:18)
[2019-11-06 05:09] VITALS: BP 162/48; PULSE 72
[2019-11-06] MEDS: amLODIPine 10 MG Tablet PO (05:09)
[2019-11-06] MEDS: hydrALAZINE 25 MG Tablet PO ×3 (05:09→20:36)
[2019-11-06] MEDS: Labetalol 100 MG Tablet PO ×2 (05:09→17:02)
[2019-11-06] MEDS: Enoxaparin 40 MG/0.4 ML Syringe SC (05:09)
[2019-11-06] MEDS: Senna/Docusate Sodium 1 Tablet 2 TABLET PO ×2 (05:09→17:02)
[2019-11-06] MEDS: Menthol/Lanolin/Calamine/Znox 113 GM Tube 1 APPLIC TOPICAL ×2 (05:10→17:18)
[2019-11-06 06:31] LABS: Bedside Glucose 187 mg/dL (70-110)
[2019-11-06] MEDS: Hydrocortisone 10 MG Tablet 5 MG PO ×2 (08:18→17:01)
[2019-11-06] MEDS: MethylPREDNISolone DosePak 4 MG BOX PO ×4 (08:18→20:35)
[2019-11-06] MEDS: Glucerna Shake 120 ML LIQUID PO ×3 (08:19→17:17)
[2019-11-06 14:01] VITALS: PULSE 72
[2019-11-06 14:04] VITALS: BP 134/56; PULSE 81; RESP 16; TEMP 36.8; O2SAT 95
[2019-11-06 20:36] VITALS: BP 142/64; PULSE 72
[2019-11-06] MEDS: MELATONIN 3 MG TABLET PO (22:23)
[2019-11-07] MEDS: Menthol/Lanolin/Calamine/Znox 113 GM Tube 1 APPLIC TOPICAL ×2 (05:08→17:15)
[2019-11-07 05:09] VITALS: BP 136/72; PULSE 68
[2019-11-07] MEDS: amLODIPine 10 MG Tablet PO (05:09)
[2019-11-07] MEDS: hydrALAZINE 25 MG Tablet PO ×3 (05:09→20:41)
[2019-11-07] MEDS: Labetalol 100 MG Tablet PO ×2 (05:10→17:16)
[2019-11-07] MEDS: Polyethylene Glycol 3350 17 GM PACKET PO (05:10)
[2019-11-07] MEDS: Enoxaparin 40 MG/0.4 ML Syringe SC (05:10)
[2019-11-07] MEDS: Senna/Docusate Sodium 1 Tablet 2 TABLET PO ×2 (05:10→17:16)
[2019-11-07] MEDS: Nystatin Powder 15gm Bottle 1 APPLIC TOPICAL ×2 (05:14→17:15)
[2019-11-07] MEDS: oxyCODONE 5 MG Tablet PO ×3 (05:17→20:41)
[2019-11-07 06:21] LABS: Bedside Glucose 170 mg/dL (70-110)
[2019-11-07] MEDS: MethylPREDNISolone DosePak 4 MG BOX PO ×4 (07:55→20:41)
[2019-11-07] MEDS: Glucerna Shake 120 ML LIQUID PO ×3 (07:55→17:15)
[2019-11-07] MEDS: Hydrocortisone 10 MG Tablet 5 MG PO ×2 (07:55→17:15)
[2019-11-07 09:40] VITALS: PULSE 68; RESP 16; O2SAT 97
[2019-11-07 13:55] VITALS: BP 123/66; PULSE 68; RESP 18; TEMP 36.8; O2SAT 98
[2019-11-07 14:49] VITALS: PULSE 68
[2019-11-07 20:41] VITALS: BP 146/55; PULSE 68
[2019-11-07] MEDS: Acetaminophen 500 MG Tablet 1000 MG PO (23:36)
[2019-11-07] MEDS: Baclofen 10 MG Tablet PO (23:36)
[2019-11-08] MEDS: MELATONIN 3 MG TABLET PO ×2 (00:25→21:30)
[2019-11-08] MEDS: oxyCODONE 5 MG Tablet PO ×4 (00:30→21:29)
[2019-11-08] MEDS: Senna/Docusate Sodium 1 Tablet 2 TABLET PO (06:08)
[2019-11-08] MEDS: amLODIPine 10 MG Tablet PO (06:09)
[2019-11-08] MEDS: Enoxaparin 40 MG/0.4 ML Syringe SC (06:09)
[2019-11-08] MEDS: Nystatin Powder 15gm Bottle 1 APPLIC TOPICAL ×2 (06:09→16:55)
[2019-11-08] MEDS: Polyethylene Glycol 3350 17 GM PACKET PO (06:09)
[2019-11-08] MEDS: Labetalol 100 MG Tablet PO ×2 (06:09→17:25)
[2019-11-08 06:10] VITALS: BP 179/76; PULSE 67
[2019-11-08] MEDS: Menthol/Lanolin/Calamine/Znox 113 GM Tube 1 APPLIC TOPICAL ×2 (06:10→16:54)
[2019-11-08] MEDS: hydrALAZINE 25 MG Tablet PO ×3 (06:10→21:30)
[2019-11-08 06:26] LABS: Bedside Glucose 181 mg/dL (70-110)
[2019-11-08] MEDS: MethylPREDNISolone DosePak 4 MG BOX PO ×3 (06:35→21:29)
[2019-11-08] MEDS: Baclofen 10 MG Tablet PO (06:35)
[2019-11-08] MEDS: Glucerna Shake 120 ML LIQUID PO ×3 (06:35→16:50)
[2019-11-08] MEDS: Acetaminophen 500 MG Tablet 1000 MG PO ×3 (06:35→21:37)
[2019-11-08] MEDS: Hydrocortisone 10 MG Tablet 5 MG PO ×2 (06:36→16:50)
--- NOTE | 2019-11-08 06:41 | NURSING ---
Pt rating pain in L hip radiating to L leg 8-10 this shift despite PRN medications and use of K-pad/repositioning. Note left for Dr. Avila RE: patient's pain. Canela catheter removed this morning per Dr. Jain's orders, pt tolerated well. Pt aware to notify staff when she feels the need to urinate. Call light within reach.
--- NOTE | 2019-11-08 11:28 | NURSING ---
Resident bladder scanned at this time for a pre-void of 87ml. Resident has not voided since israel was removed at 0600. Will continue to monitor.
[2019-11-08 13:31] VITALS: PULSE 72
--- NOTE | 2019-11-08 13:55 | NURSING ---
pt uncomfortable, unable to void, attempted couple times on commode w/out success. st cathed 500cc slightly cloudy yellow urine.
[2019-11-08 15:36] VITALS: BP 185/53; PULSE 73; RESP 22; TEMP 36.8; O2SAT 97
--- NOTE | 2019-11-08 17:12 | NURSING ---
pt attempted to void x2 last 2 hours, getting uncomfortable. st cathed for 700cc cloudy urine.
[2019-11-08 21:30] VITALS: BP 141/63; PULSE 66
--- NOTE | 2019-11-09 00:18 | NURSING ---
Patient voided 150 cc of yellow cloudy urine. Patient bladder scanned after voiding for 548. Patient straight cathed at this time for 700 cc of cloudy urine. Patient tolerated procedure well.
[2019-11-09] MEDS: oxyCODONE 5 MG Tablet PO ×2 (04:22→09:02)
[2019-11-09] MEDS: Acetaminophen 500 MG Tablet 1000 MG PO (04:23)
[2019-11-09] MEDS: Senna/Docusate Sodium 1 Tablet 2 TABLET PO (04:23)
[2019-11-09 04:24] VITALS: BP 158/67; PULSE 66
[2019-11-09] MEDS: hydrALAZINE 25 MG Tablet PO ×3 (04:24→21:36)
[2019-11-09] MEDS: Polyethylene Glycol 3350 17 GM PACKET PO (04:24)
[2019-11-09] MEDS: Menthol/Lanolin/Calamine/Znox 113 GM Tube 1 APPLIC TOPICAL ×2 (04:24→17:33)
[2019-11-09] MEDS: Nystatin Powder 15gm Bottle 1 APPLIC TOPICAL ×2 (04:24→17:32)
[2019-11-09] MEDS: amLODIPine 10 MG Tablet PO (04:25)
[2019-11-09] MEDS: Labetalol 100 MG Tablet PO ×2 (04:25→17:29)
[2019-11-09] MEDS: Enoxaparin 40 MG/0.4 ML Syringe SC (04:25)
--- NOTE | 2019-11-09 04:42 | NURSING ---
Patient has attempted to void x 2 times since last being straight cathed. Patient feeling very uncomfortable. Straight cathed at this time due to patient feeling uncomfortable. Patient straight cathed for 650 cc of yellow cloudy urine. Patient states that she feels much better.
[2019-11-09 06:40] LABS: Bedside Glucose 149 mg/dL (70-110)
[2019-11-09 06:46] LABS: Absolute Lymphocyte Count 1.07 X10^3/uL (0.83-4.51); Absolute Neutrophil Count 6.4 X10^3/uL (2.0-7.7); Basophil# 0.06 X10^3/uL; Basophil% 0.7 % (0-1); Eosinophil# 0.28 X10^3/uL; Eosinophils% 3.3 % (0-5); Hematocrit 36.8 % (37-47); Hemoglobin 12.2 g/dL (12.0-15.0); Lymphocyte # 1.07 X10^3/ul (4.0); Lymphocyte % 12.5 % (19-41); Mean Corp Hgb Conc 33.2 g/dL (32-36); Mean Corpuscular Hgb 30.3 pg (27.0-32.0); Mean Corpuscular Volume 91.3 fL (81-99); Monocyte# 0.71 X10^3/uL; Monocyte% 8.3 % (0-10); NRBC Flagged by Analyzer 0 % (0-5); Neutrophil # 6.38 X10^3/uL (2.7-7.7); Neutrophil % 74.4 % (47-70); Platelet Count 307 K/mm3 (150-450); RBC Distribution Width CV 14.9 % (11.6-14.6); RBC Distribution Width SD 49.1 fl (35.1-43.9); Red Blood Count 4.03 M/mm3 (4.2-5.4); White Blood Count 8.6 K/mm3 (4.4-11.0)
[2019-11-09 07:05] LABS: Anion Gap 7 (5-15); BUN 19 mg/dL (7-18); BUN/Creat Ratio 25.1 RATIO (10-20); Calcium,Total 9.7 mg/dL (8.5-10.1); Chloride 94 mmol/L (98-107); Creatinine, Serum 0.76 mg/dL (0.55-1.02); EST Glomerular Filtration Rate 78 mL/min (>60); Est Glom Filt Rate - Afr Amer 95 mL/min (>60); Estimated Creatinine Clearance 70.48 ml/min; Glucose 155 mg/dL (74-106); Sodium Level 129 mmol/L (136-145)
[2019-11-09 08:56] LABS: Osmolality, Serum 275 mOsm/KG (280-301)
[2019-11-09] MEDS: Glucerna Shake 120 ML LIQUID PO ×3 (09:01→17:28)
[2019-11-09] MEDS: MethylPREDNISolone DosePak 4 MG BOX PO ×2 (09:02→21:36)
[2019-11-09] MEDS: Hydrocortisone 10 MG Tablet 5 MG PO ×2 (09:03→17:28)
--- NOTE | 2019-11-09 09:08 | NURSING ---
rt hip pain 04/20. prn oxy given
--- NOTE | 2019-11-09 12:32 | CASEMGMT ---
Addendum entered by Manisha Conklin 11/09/19 16:19: Spoke with about Palliative Medicine. Explained that Palliative services can assist with pain management, symptom and disease management. the goal is to keep patient in the home and comfortable. Son agreed to services. Referral made to [facility]. Palliative screen completed and faxed. Addendum entered by Manisha Conkiln 11/09/19 16:04: Spoke with son to discuss appeal rights and updates from therapy session on this date. Therapy stated pain is very limiting to participation - max assist for bed mobility, transfers, and cannot attempt to complete steps. Pt has only been able to complete 1 step thus far. Son explained he is working on getting a ramp into place, but overall concerned about pt's readiness to DC home. Son stated he will complete an appeal. Will continue to follow. Original Note: Social Work Spoke with pt son over phone about DC plans. Gave list of [facility] agencies, son choosing [facility]-PT/OT/SN-referrals made. Pt going home with a israel. Son also requesting [facility]-faxed script. Son also asking for resources for ramp into home-gave resources. Pt has 6 steps to enter, son concerned about steps to enter, explained that SWI/SW would f/u with therapy to get recommendations for pt. Explained appeal rights to son. Updated pt son that therapy is recommending continued therapy to continue working on stairs with pt. Son indicated he may appeal. Will continue to follow. Alicia Ibarra, social work learning and development intern Manisha Conklin, ALIYAH RADIATOR TESTER
[2019-11-09 13:07] VITALS: PULSE 80
[2019-11-09 13:23] VITALS: PULSE 80
--- NOTE | 2019-11-09 13:54 | CASEMGMT ---
Social Work Reviewed and agreed with social work marketing summer intern documentation on this date. Mansiha Conklin, [employer] OPERATOR SENIOR SYSTEMS ARCHITECT
[2019-11-09 14:03] VITALS: BP 154/62; PULSE 77; RESP 16; TEMP 37.1; O2SAT 95
[2019-11-09] MEDS: Baclofen 10 MG Tablet PO ×2 (14:52→21:36)
[2019-11-09 16:20] LABS: Urine Sodium 39 mmol/L (Not Establ.)
--- NOTE | 2019-11-09 16:21 | CASEMGMT ---
Social Work Eva received appeal. Case #[id number]. Requested clinicals faxed. Will continue to follow. Manisha Conklin, P[employer] MACHINE OPERATOR DOUBLE END TENON OPERATOR
--- NOTE | 2019-11-09 16:24 | NURSING ---
Resident complained of bladder feeling full. Bladder scanned at 14:45 for 533 ml. New israel inserted at 15:00. Resident tolerated procedure fair. Urine sent to lab for U/A C&S.
--- NOTE | 2019-11-09 16:27 | NURSING ---
Resident told this nurse she did not want to be straight cathed and preferred to have israel inserted. Resident stated straight cathing was uncomfortable for her as well as having a full bladder.
[2019-11-09 16:29] LABS: Osmolality, Urine 291 mOsm/KG
--- NOTE | 2019-11-09 19:20 | DCINST_ITS ---
- Discharge Diagnoses Current Active Problems: Current Active and Chronic Problems Debility (Acute) Dehydration (Acute) Acute kidney injury (Acute) Adrenal insufficiency (Acute) Low back pain (Chronic) Diabetes mellitus (Chronic) Hypertension (Chronic) Body mass index (BMI) 45.0-49.9, adult (Chronic) Muscle spasm (Chronic) Nausea (Chronic) You will use the following diet at home:: No restrictions, Regular Your food should be the consistency of: Regular Your liquids should be the consistency of: Regular/Thin Discharge Activity: Return to Normal Activity, May Shower, Use Walker Weight Bearing Status: Weight bearing as tolerated Call your doctor if you observe: Fever of 101 or Higher, Inability to urinate, Inability to have a bowel movement, Shortness of breath, Chest pain, Uncontrolled pain Allergies/Adverse Reactions: Allergies Penicillins Allergy (Verified 10/20/19 17:14) Hives adhesive tape Adverse Reaction (Verified 10/25/19 14:17) Other Medications to take at Discharge Labetalol [Trandate (Beta Josiah)] 100 mg PO BID 10/09/19 Amlodipine [Norvasc] 10 mg PO DAILY 10/20/19 Acetaminophen [Tylenol Tablet] 650 mg PO Q6H PRN PRN tab 10/25/19 Melatonin 3 mg PO QHS PRN PRN tab 10/25/19 Baclofen [Lioresal] 10 mg PO TID PRN #90 tab 11/09/19 Hydrocortisone [Cortef] 5 mg PO BIDCM #30 tab 11/09/19 Menthol/Lanolin/Calamine/Znox [Calmoseptine Ointment] 1 applic TOPICAL BID tube 11/09/19 Mineral Oil/Petrolatum,White [Eucerin] 1 applic TOPICAL 0600,2200 jar 11/09/19 Nystatin Powder [Mycostatin Powder] 1 applic TOPICAL BID bottle 11/09/19 Oxycodone [Oxyir] 5 mg PO Q4H PRN PRN 7 Days #28 tablet 11/09/19 Polyethylene Glycol 3350 [Miralax] 17 gm PO DAILY #30 packet 11/09/19 Senna/Docusate Sodium [Senokot-S] 2 tab PO BID #120 tab 11/09/19 hydrALAZINE [Apresoline] 25 mg PO TID #90 tab 11/09/19 The following prescriptions were given: hydrALAZINE [Apresoline] 25 mg PO TID #90 tab Transmission Status: Pending to [facility] Hydrocortisone [Cortef] 5 mg PO BIDCM #30 tab Transmission Status: Pending to [facility] Baclofen [Lioresal] 10 mg PO TID PRN #90 tab PRN Reason: Muscle Spasm Transmission Status: Pending to [facility] Polyethylene Glycol 3350 [Miralax] 17 gm PO DAILY #30 packet Transmission Status: Pending to [facility] Oxycodone [Oxyir] 5 mg PO Q4H PRN PRN 7 Days #28 tablet PRN Reason: Pain Score 4-10/10 Transmission Status: Sent to [facility] Senna/Docusate Sodium [Senokot-S] 2 tab PO BID #120 tab Transmission Status: Pending to [facility] Primary Care Physician: Yonis Torres MD [Primary Care Provider] - Please follow up with your Primary Care Physician in: 1 week. Test Results: Test results from this visit will be discussed in further detail at your follow- up appointment, if applicable. Please Follow Up With: Vannessa Nguyen DO When: 2-4 weeks Please Follow Up With: Vero Jain MD When: 2 weeks. Proposed Discharge Date: 11/12/19
--- NOTE | 2019-11-09 19:22 | DS.PCM_ITS ---
Discharge Date and Diagnosis - Problem List Patient Problems: Active and Suspected Problems Debility (Acute) Dehydration (Acute) Acute kidney injury (Acute) Adrenal insufficiency (Acute) Date of Admission: 10/25/19 Date of Discharge: 11/12/19 - Primary Discharge Diagnosis Active and Suspected Problems Debility (Acute) Dehydration (Acute) Acute kidney injury (Acute) Adrenal insufficiency (Acute) - Secondary Discharge Diagnosis Chronic Problems Low back pain (Chronic) Diabetes mellitus (Chronic) Hypertension (Chronic) Body mass index (BMI) 45.0-49.9, adult (Chronic) Muscle spasm (Chronic) Nausea (Chronic) Back pain (Chronic) Essential (primary) hypertension (Chronic) DM2 (diabetes mellitus, type 2) (Chronic) HLD (hyperlipidemia) (Chronic) VIN (obstructive sleep apnea) (Chronic) Morbid obesity (Chronic) Hospital Course and Treatment Imaging Results: 11/09/19 17:05 Diet: Fluid Restriction Is pt able to select menu?: Yes Diet Comments: 1800 Calorie, supervised Fluid restriction:: 1500 mL Clinical Impression(s) from Imaging Studies KUB X-Ray 11/01/19 00:02 IMPRESSION: Nonspecific increase gas pattern. No signs of bowel obstruction or free air. Electronically Signed: Leticia Pham MD at 0:30 EDT , Service support , Hip X-Ray 11/05/19 09:40 IMPRESSION: Degenerative changes. No fracture or dislocation is seen. Electronically Signed: Jc Koehler at 9:57 EDT , Service support , Labs (Last 48 Hours) 11/08/19 11/09/19 11/09/19 06:16 06:29 06:30 WBC 8.6 RBC 4.03 L Hgb 12.2 Hct 36.8 L MCV 91.3 MCH 30.3 MCHC 33.2 RDW Std Deviation 49.1 H RDW Coeff of Lisa 14.9 H Plt Count 307 MPV 9.0 Immature Gran % (Auto) 0.800 Neut % (Auto) 74.4 H Lymph % (Auto) 12.5 L Weakley % (Auto) 8.3 Eos % (Auto) 3.3 Baso % (Auto) 0.7 Absolute Neuts (auto) 6.4 Absolute Lymphs (auto) 1.07 Nucleated RBC % 0 Sodium Potassium Chloride Carbon Dioxide Anion Gap BUN Creatinine Estim Creat Clear Calc Est GFR (MDRD) Af Amer Est GFR (MDRD) Non-Af BUN/Creatinine Ratio Glucose Serum Osmolality Calcium Urine Osmolality Ur Random Sodium POC Glucose 181 H 149 H 11/09/19 11/09/19 11/09/19 06:30 08:23 15:54 WBC RBC Hgb Hct MCV MCH MCHC RDW Std Deviation RDW Coeff of Lisa Plt Count MPV Immature Gran % (Auto) Neut % (Auto) Lymph % (Auto) Weakley % (Auto) Eos % (Auto) Baso % (Auto) Absolute Neuts (auto) Absolute Lymphs (auto) Nucleated RBC % Sodium 129 L Potassium 4.0 Chloride 94 L Carbon Dioxide 28.0 Anion Gap 7 BUN 19 H Creatinine 0.76 Estim Creat Clear Calc 70.48 Est GFR (MDRD) Af Amer 95 Est GFR (MDRD) Non-Af 78 BUN/Creatinine Ratio 25.1 H Glucose 155 H Serum Osmolality 275 L Calcium 9.7 Urine Osmolality Ur Random Sodium 39 POC Glucose 11/09/19 15:54 WBC RBC Hgb Hct MCV MCH MCHC RDW Std Deviation RDW Coeff of Lisa Plt Count MPV Immature Gran % (Auto) Neut % (Auto) Lymph % (Auto) Weakley % (Auto) Eos % (Auto) Baso % (Auto) Absolute Neuts (auto) Absolute Lymphs (auto) Nucleated RBC % Sodium Potassium Chloride Carbon Dioxide Anion Gap BUN Creatinine Estim Creat Clear Calc Est GFR (MDRD) Af Amer Est GFR (MDRD) Non-Af BUN/Creatinine Ratio Glucose Serum Osmolality Calcium Urine Osmolality 291 Ur Random Sodium POC Glucose Operations: None Procedures: None Summary of Care Provided: The patient is a 79 year old Female with below past medical history hospitalized for hyponatremia, acute kidney injury secondary to urinary retention, C. Koseri UTI, complicated by hypokalemia, adrenal insufficiency, admitted to TCU with debility, here for rehabilitation, strengthening, prior to discharge to [facility]. Discharge home with son, [facility] PT/OT/SN, Front wheeled walker, [facility]. Patient Problems: Active and Suspected Problems Debility (Acute) Dehydration (Acute) Acute kidney injury (Acute) Adrenal insufficiency (Acute) - Physical Exam Vitals/I&O's: Vital Signs Temp Pulse Resp BP Pulse Ox 98.8 F 77 16 154/62 H 95 11/09/19 14:03 11/09/19 14:03 11/09/19 14:03 11/09/19 14:03 11/09/19 14:03 Oxygen Flow Rate (L/min) 1 Oxygen Delivery Method Room Air Weight: 95.793 kg Body Mass Index (BMI) 47.5 Intake and Output for Last 24 Hours 11/07/19 11/08/19 11/09/19 23:59 23:59 23:59 Intake Total 1320 / 1320 1080 / 1080 840 / 840 Output Total 2200 / 2200 3100 / 3100 1700 / 1700 Balance -880 / -880 -2020 / -2020 -860 / -860 Microbiology Past 72 Hours 11/05/19 15:52 Urine Catheter - Canela Urine Culture - Final Citrobacter koseri Laboratory Results 11/09/19 06:29: POC Glucose 149 H 11/09/19 06:30: WBC 8.6, RBC 4.03 L, Hgb 12.2, Hct 36.8 L, MCV 91.3, MCH 30.3, MCHC 33.2, RDW Std Deviation 49.1 H, RDW Coeff of Lisa 14.9 H, Plt Count 307, MPV 9.0, Immature Gran % (Auto) 0.800, Neut % (Auto) 74.4 H, Lymph % (Auto) 12.5 L, Weakley % (Auto) 8.3, Eos % (Auto) 3.3, Baso % (Auto) 0.7, Absolute Neuts (auto) 6.4, Absolute Lymphs (auto) 1.07, Nucleated RBC % 0 11/09/19 06:30: Sodium 129 L, Potassium 4.0, Chloride 94 L, Carbon Dioxide 28.0, Anion Gap 7, BUN 19 H, Creatinine 0.76, Estim Creat Clear Calc 70.48, Est GFR (MDRD) Af Amer 95, Est GFR (MDRD) Non-Af 78, BUN/Creatinine Ratio 25.1 H, Glucose 155 H, Calcium 9.7 11/09/19 08:23: Serum Osmolality 275 L 11/09/19 15:54: Ur Random Sodium 39 11/09/19 15:54: Urine Osmolality 291 Current Medications Acetaminophen (Tylenol) 1,000 mg PO Q6H PRN PRN PRN Reason: Pain Score 1-3/10 Last Admin: 11/09/19 04:23 Dose: 1,000 mg Documented by: Amlodipine Besylate (Norvasc) 10 mg PO DAILY [facility] Last Admin: 11/09/19 04:25 Dose: 10 mg Documented by: Baclofen (Lioresal) 10 mg PO TID PRN PRN Reason: MUSCLE SPASM Last Admin: 11/09/19 14:52 Dose: 10 mg Documented by: Bisacodyl (Dulcolax) 10 mg PO DAILY PRN PRN Reason: Constipation Calamine/Phenol (Calmoseptine Ointment) 1 applic TOPICAL BID [facility]; Protocol Last Admin: 11/09/19 17:33 Dose: 1 applicatio Documented by: Enoxaparin Sodium (Lovenox) 40 mg SC DAILY@0600 [facility] Last Admin: 11/09/19 04:25 Dose: 40 mg Documented by: Hydralazine HCl (Apresoline) 25 mg PO TID [facility] Last Admin: 11/09/19 13:07 Dose: 25 mg Documented by: [facility] Admin: 11/09/19 17:28 Dose: 5 mg Documented by: Labetalol HCl (Trandate) 100 mg PO BID [facility] Last Admin: 11/09/19 17:29 Dose: 100 mg Documented by: Melatonin (Melatonin) 3 mg PO QHS [facility] Last Admin: 11/08/19 21:30 Dose: 3 mg Documented by: Methylprednisolone (Medrol Dosepak) 4 mg PO 0800,2200 [facility]; Taper Stop: 11/10/19 04:59 Last Admin: 11/09/19 09:02 Dose: 4 mg Documented by: Multi-Ingredient Cream (Eucerin) 1 applic TOPICAL 0600,2200 [facility] [place]; Protocol Last Admin: 11/09/19 04:28 Dose: 1 applicatio Documented by: Nutritional Formula (Lactose Free) (Glucerna Shake) 120 ml PO TIDCM [facility] Last Admin: 11/09/19 17:28 Dose: 120 ml Documented by: Nystatin (Mycostatin Powder) 1 applic TOPICAL BID [facility]; Protocol Last Admin: 11/09/19 17:32 Dose: 1 applicatio Documented by: Oxycodone HCl (Oxyir) 5 mg PO Q4H PRN PRN PRN Reason: Pain Score 4-10/10 Last Admin: 11/09/19 09:02 Dose: 5 mg Documented by: Polyethylene Glycol (Miralax) 17 gm PO DAILY [facility] Last Admin: 11/09/19 04:24 Dose: 17 gm Documented by: Senna/Docusate Sodium (Senokot-S, Kay-Colace) 2 tablet PO BID [facility] Last Admin: 11/09/19 17:30 Dose: Not Given Documented by: Sodium Chloride () 10 - 40 ml IV UD PRN PRN Reason: SALINE FLUSH Discharge Diet: No Restrictions Discharge Activity: Return to Normal Activity, May Shower, Use Walker Weight Bearing Status: Weight bearing as tolerated Call your doctor if you observe: Fever of 101 or Higher, Inability to urinate, Inability to have a bowel movement, Shortness of breath, Chest pain, Uncontrolled pain Home Medications: Medications to take at Discharge Labetalol [Trandate (Beta Josiah)] 100 mg PO BID 10/09/19 Amlodipine [Norvasc] 10 mg PO DAILY 10/20/19 Acetaminophen [Tylenol Tablet] 650 mg PO Q6H PRN PRN tab 10/25/19 Melatonin 3 mg PO QHS PRN PRN tab 10/25/19 Baclofen [Lioresal] 10 mg PO TID PRN #90 tab 11/09/19 Hydrocortisone [Cortef] 5 mg PO BIDCM #30 tab 11/09/19 Menthol/Lanolin/Calamine/Znox [Calmoseptine Ointment] 1 applic TOPICAL BID tube 11/09/19 Mineral Oil/Petrolatum,White [Eucerin] 1 applic TOPICAL 0600,2200 jar 11/09/19 Nystatin Powder [Mycostatin Powder] 1 applic TOPICAL BID bottle 11/09/19 Oxycodone [Oxyir] 5 mg PO Q4H PRN PRN 7 Days #28 tablet 11/09/19 Polyethylene Glycol 3350 [Miralax] 17 gm PO DAILY #30 packet 11/09/19 Senna/Docusate Sodium [Senokot-S] 2 tab PO BID #120 tab 11/09/19 hydrALAZINE [Apresoline] 25 mg PO TID #90 tab 11/09/19 Following Prescrptions Were Given to Patient: hydrALAZINE [Apresoline] 25 mg PO TID #90 tab Transmission Status: Pending to [facility] #30 Hydrocortisone [Cortef] 5 mg PO BIDCM #30 tab Transmission Status: Pending to [facility] Baclofen [Lioresal] 10 mg PO TID PRN #90 tab PRN Reason: Muscle Spasm Transmission Status: Pending to [facility] Polyethylene Glycol 3350 [Miralax] 17 gm PO DAILY #30 packet Transmission Status: Pending to [facility] Oxycodone [Oxyir] 5 mg PO Q4H PRN PRN 7 Days #28 tablet PRN Reason: Pain Score 4-10/10 Transmission Status: Sent to [facility] Senna/Docusate Sodium [Senokot-S] 2 tab PO BID #120 tab Transmission Status: Pending to [facility] Primary Care Physician: Yonis Torres MD [Primary Care Provider] - Please follow up with your Primary Care Physician in: 1 week. Please Follow Up With: Vannessa Nguyen DO When: 2-4 weeks Please Follow Up With: Vero Jain MD When: 2 weeks. Disposition: Home with Home Health Minutes spent on discharge:: 35 Patient Condition:: Stable Medical Necessity - Tobacco Use Smoking Status: Never smoker Tobacco Use: Non-smoker Meaningful Use Info Meaningful Use Diagnoses (Choose all that apply): None applicable
[2019-11-09 21:36] VITALS: BP 130/69; PULSE 74
[2019-11-09] MEDS: MELATONIN 3 MG TABLET PO (21:38)
[2019-11-10] MEDS: oxyCODONE 5 MG Tablet PO ×2 (00:02→20:27)
[2019-11-10] MEDS: Acetaminophen 500 MG Tablet 1000 MG PO ×2 (00:02→20:27)
[2019-11-10 05:15] VITALS: BP 159/70; PULSE 71
[2019-11-10] MEDS: Enoxaparin 40 MG/0.4 ML Syringe SC (05:15)
[2019-11-10] MEDS: Labetalol 100 MG Tablet PO ×2 (05:15→17:04)
[2019-11-10] MEDS: hydrALAZINE 25 MG Tablet PO ×3 (05:15→20:26)
[2019-11-10] MEDS: Senna/Docusate Sodium 1 Tablet 2 TABLET PO ×2 (05:15→17:04)
[2019-11-10] MEDS: amLODIPine 10 MG Tablet PO (05:15)
[2019-11-10] MEDS: Polyethylene Glycol 3350 17 GM PACKET PO (05:15)
[2019-11-10] MEDS: Nystatin Powder 15gm Bottle 1 APPLIC TOPICAL ×2 (05:16→17:03)
[2019-11-10] MEDS: Menthol/Lanolin/Calamine/Znox 113 GM Tube 1 APPLIC TOPICAL ×2 (05:16→17:03)
[2019-11-10 06:26] LABS: Bedside Glucose 160 mg/dL (70-110)
[2019-11-10] MEDS: Hydrocortisone 10 MG Tablet 5 MG PO ×2 (09:07→17:01)
[2019-11-10] MEDS: Glucerna Shake 120 ML LIQUID PO ×3 (09:07→16:53)
--- NOTE | 2019-11-10 11:12 | CASEMGMT ---
Social Work Palliative meeting scheduled with pt and son via conference call at 1 pm on this date. ALIYAH TiwariW
[2019-11-10 14:04] VITALS: BP 140/74; PULSE 74; RESP 16; TEMP 36.7; O2SAT 98
[2019-11-10 14:26] VITALS: PULSE 74
--- NOTE | 2019-11-10 14:33 | CASEMGMT ---
Social Work Eva notified that patient won appeal. Insurance will set the next review date. Spoke with pt and son - both please. Pt agreeable to Palliative services as well. Will notify [facility] of DC date. Will continue to follow. Manisha Conklin, DENTAL OFFICE COORDINATOR CABANA ATTENDANT
[2019-11-10] MEDS: Baclofen 10 MG Tablet PO (15:45)
[2019-11-10 20:26] VITALS: BP 142/66; PULSE 74
[2019-11-10] MEDS: MELATONIN 3 MG TABLET PO (20:27)
[2019-11-11] MEDS: oxyCODONE 5 MG Tablet PO ×3 (03:20→21:34)
[2019-11-11] MEDS: Acetaminophen 500 MG Tablet 1000 MG PO ×2 (03:20→21:35)
[2019-11-11] MEDS: Baclofen 10 MG Tablet PO ×2 (04:20→12:40)
[2019-11-11 06:00] VITALS: BP 128/61; PULSE 66
[2019-11-11] MEDS: Nystatin Powder 15gm Bottle 1 APPLIC TOPICAL ×2 (06:00→17:41)
[2019-11-11] MEDS: Polyethylene Glycol 3350 17 GM PACKET PO (06:00)
[2019-11-11] MEDS: amLODIPine 10 MG Tablet PO (06:00)
[2019-11-11] MEDS: Labetalol 100 MG Tablet PO ×2 (06:00→17:39)
[2019-11-11] MEDS: Senna/Docusate Sodium 1 Tablet 2 TABLET PO (06:00)
[2019-11-11] MEDS: hydrALAZINE 25 MG Tablet PO ×3 (06:00→21:35)
[2019-11-11] MEDS: Menthol/Lanolin/Calamine/Znox 113 GM Tube 1 APPLIC TOPICAL ×2 (06:00→17:42)
[2019-11-11] MEDS: Enoxaparin 40 MG/0.4 ML Syringe SC (06:00)
[2019-11-11] MEDS: Glucerna Shake 120 ML LIQUID PO ×3 (07:45→17:36)
[2019-11-11 07:48] LABS: Bedside Glucose 169 mg/dL (70-110)
[2019-11-11] MEDS: Hydrocortisone 10 MG Tablet 5 MG PO ×2 (08:00→17:38)
[2019-11-11 13:01] VITALS: PULSE 78
[2019-11-11 13:54] VITALS: BP 122/52; PULSE 70; RESP 16; TEMP 36.9; O2SAT 93
[2019-11-11 21:35] VITALS: BP 141/55; PULSE 72
[2019-11-11] MEDS: MELATONIN 3 MG TABLET PO (21:35)
[2019-11-12] MEDS: Baclofen 10 MG Tablet PO ×2 (01:09→11:59)
[2019-11-12] MEDS: oxyCODONE 5 MG Tablet PO ×3 (03:02→21:43)
[2019-11-12] MEDS: Menthol/Lanolin/Calamine/Znox 113 GM Tube 1 APPLIC TOPICAL ×2 (05:40→17:32)
[2019-11-12] MEDS: Nystatin Powder 15gm Bottle 1 APPLIC TOPICAL ×2 (05:40→17:32)
[2019-11-12 05:43] VITALS: BP 143/63; PULSE 67
[2019-11-12] MEDS: hydrALAZINE 25 MG Tablet PO ×3 (05:43→21:43)
[2019-11-12] MEDS: Acetaminophen 500 MG Tablet 1000 MG PO ×2 (05:43→12:33)
[2019-11-12] MEDS: Enoxaparin 40 MG/0.4 ML Syringe SC (05:44)
[2019-11-12] MEDS: Labetalol 100 MG Tablet PO ×2 (05:44→17:28)
[2019-11-12] MEDS: amLODIPine 10 MG Tablet PO (05:44)
[2019-11-12 06:30] LABS: Anion Gap 7 (5-15); BUN 16 mg/dL (7-18); BUN/Creat Ratio 20.5 RATIO (10-20); Calcium,Total 9.2 mg/dL (8.5-10.1); Chloride 95 mmol/L (98-107); Creatinine, Serum 0.78 mg/dL (0.55-1.02); EST Glomerular Filtration Rate 76 mL/min (>60); Est Glom Filt Rate - Afr Amer 92 mL/min (>60); Estimated Creatinine Clearance 67.85 ml/min; Glucose 150 mg/dL (74-106); Potassium 4.3 mmol/L (3.5-5.1); Sodium Level 132 mmol/L (136-145)
[2019-11-12 06:35] LABS: Bedside Glucose 151 mg/dL (70-110)
[2019-11-12] MEDS: Glucerna Shake 120 ML LIQUID PO ×3 (08:26→17:28)
[2019-11-12] MEDS: Hydrocortisone 10 MG Tablet 5 MG PO ×2 (08:26→17:29)
[2019-11-12 13:54] VITALS: BP 125/51; PULSE 70; RESP 18; TEMP 36; O2SAT 97
[2019-11-12 14:28] VITALS: BP 125/51; PULSE 70
[2019-11-12] MEDS: MELATONIN 3 MG TABLET PO (21:42)
[2019-11-12 21:43] VITALS: BP 130/60; PULSE 71
--- NOTE | 2019-11-12 21:57 | NURSING ---
Pt called unit stating his mom seemed confused to him. This nurse into give HS meds. Pt was awoken my gently touching arm. Pt pleasant with this nurse and A&Ox4. Talking about her and son and where she lived. Talked about career and different experiences in life. This nurse asked pt if she was experiencing any pain. Pt stating pain to be 10/10 to left hip. Then pt began to moan very loud. This nurse asked pt if it was new. Pt stated no it never goes away. Pt moaning out in pain again requesting pain medication. This stated she would get her some and offered a heating pad or ice pack. Pt declined. Offered to reposition and pt declined. HS meds and pain medication given without problem. Pt then stating that she felt like she had to pee. Scant amount of urine noted in israel. Bladder scan 467. Lowered legs of bed and adjusted tubing. Yellow, cloudy urine began to immediately drain into bag. Urine noted to be foul. Suggested that possibly catheter should come out in the near future. Pt got very defensive. Stating they already tried to take it out and I could not pee. This nurse simply questioned pt if she knew when she had to pee before getting catheter. Pt stating yes. Educated pt on risk of infection related to catheters and getting it out could help promot mobility. Pt got very defensive again stating You are not taking that out because I am not getting up to go to the restroom! I will just pee myself and you can clean it up. Call light was in reach and this nurse exited room.
[2019-11-13] MEDS: oxyCODONE 5 MG Tablet PO ×3 (01:22→14:20)
[2019-11-13] MEDS: Nystatin Powder 15gm Bottle 1 APPLIC TOPICAL ×2 (05:22→22:11)
[2019-11-13] MEDS: Menthol/Lanolin/Calamine/Znox 113 GM Tube 1 APPLIC TOPICAL ×2 (05:22→22:11)
[2019-11-13] MEDS: Labetalol 100 MG Tablet PO ×2 (05:23→17:14)
[2019-11-13] MEDS: Enoxaparin 40 MG/0.4 ML Syringe SC (05:23)
[2019-11-13] MEDS: Senna/Docusate Sodium 1 Tablet 2 TABLET PO (05:23)
[2019-11-13] MEDS: amLODIPine 10 MG Tablet PO (05:23)
[2019-11-13 05:24] VITALS: BP 139/50; PULSE 74
[2019-11-13] MEDS: hydrALAZINE 25 MG Tablet PO ×3 (05:24→22:10)
[2019-11-13] MEDS: Baclofen 10 MG Tablet PO ×2 (05:24→17:12)
[2019-11-13 06:26] LABS: Bedside Glucose 150 mg/dL (70-110)
[2019-11-13] MEDS: Acetaminophen 500 MG Tablet 1000 MG PO ×3 (08:40→22:10)
[2019-11-13] MEDS: Hydrocortisone 10 MG Tablet 5 MG PO ×2 (08:40→17:11)
[2019-11-13] MEDS: Glucerna Shake 120 ML LIQUID PO ×3 (08:40→17:12)
[2019-11-13 13:30] VITALS: PULSE 70
--- NOTE | 2019-11-13 13:30 | NURSING ---
pt son called in asking if pt was gonna get therapy today. spoke with OT and they were getting ready to treat her in approx 10 minutes. son requesting that pt be up out of bed and moving more. business planning analyst offered to get pt up and she refused this AM. Pt assisted to chair during therapy session. c/o LT hip and leg pain, oxyir given. call light in reach.
[2019-11-13 14:20] VITALS: PULSE 76; RESP 16; O2SAT 96
[2019-11-13 14:55] VITALS: BP 135/54; PULSE 75; RESP 20; TEMP 36.6; O2SAT 95
[2019-11-13 22:10] VITALS: BP 140/62; PULSE 75
[2019-11-13] MEDS: MELATONIN 3 MG TABLET PO (22:10)
[2019-11-14] MEDS: oxyCODONE 5 MG Tablet PO ×3 (01:29→23:25)
[2019-11-14 04:24] VITALS: BP 140/68; PULSE 64
[2019-11-14] MEDS: Acetaminophen 500 MG Tablet 1000 MG PO ×4 (04:24→22:11)
[2019-11-14] MEDS: amLODIPine 10 MG Tablet PO (04:24)
[2019-11-14] MEDS: Senna/Docusate Sodium 1 Tablet 2 TABLET PO ×2 (04:24→17:45)
[2019-11-14] MEDS: hydrALAZINE 25 MG Tablet PO ×3 (04:24→20:42)
[2019-11-14] MEDS: Enoxaparin 40 MG/0.4 ML Syringe SC (04:24)
[2019-11-14] MEDS: Labetalol 100 MG Tablet PO ×2 (04:24→17:47)
[2019-11-14] MEDS: Menthol/Lanolin/Calamine/Znox 113 GM Tube 1 APPLIC TOPICAL ×2 (04:25→20:49)
[2019-11-14] MEDS: Nystatin Powder 15gm Bottle 1 APPLIC TOPICAL ×2 (04:28→20:49)
[2019-11-14 06:05] LABS: Bedside Glucose 148 mg/dL (70-110)
[2019-11-14] MEDS: Hydrocortisone 10 MG Tablet 5 MG PO ×2 (07:51→17:45)
[2019-11-14] MEDS: Glucerna Shake 120 ML LIQUID PO ×3 (07:51→17:46)
[2019-11-14 14:34] VITALS: PULSE 68
[2019-11-14 15:07] VITALS: BP 129/42; PULSE 69; RESP 18; TEMP 36.4; O2SAT 96
[2019-11-14 20:42] VITALS: BP 150/71; PULSE 78
[2019-11-14] MEDS: MELATONIN 3 MG TABLET PO (20:42)
[2019-11-14] MEDS: Baclofen 10 MG Tablet PO (20:42)
[2019-11-15 04:18] VITALS: BP 149/70; PULSE 79
[2019-11-15] MEDS: oxyCODONE 5 MG Tablet PO ×3 (04:18→22:48)
[2019-11-15] MEDS: hydrALAZINE 25 MG Tablet PO ×3 (04:18→21:04)
[2019-11-15] MEDS: Enoxaparin 40 MG/0.4 ML Syringe SC (04:18)
[2019-11-15] MEDS: Senna/Docusate Sodium 1 Tablet 2 TABLET PO ×2 (04:18→17:08)
[2019-11-15] MEDS: amLODIPine 10 MG Tablet PO (04:19)
[2019-11-15] MEDS: Labetalol 100 MG Tablet PO ×2 (04:19→17:08)
[2019-11-15] MEDS: Acetaminophen 500 MG Tablet 1000 MG PO ×4 (04:25→22:48)
[2019-11-15] MEDS: Nystatin Powder 15gm Bottle 1 APPLIC TOPICAL ×2 (04:26→21:06)
[2019-11-15] MEDS: Menthol/Lanolin/Calamine/Znox 113 GM Tube 1 APPLIC TOPICAL ×2 (04:26→21:05)
--- NOTE | 2019-11-15 04:27 | NURSING ---
[place] catheter noted to not be draining. Attempted to adjust tubing which was unsuccessful. Flushed israel with 40cc saline flush. Immedite return of cloudy straw colored urine with lots of sediment. 800cc urine.
[2019-11-15 06:05] LABS: Bedside Glucose 164 mg/dL (70-110)
[2019-11-15] MEDS: Hydrocortisone 10 MG Tablet 5 MG PO ×2 (07:41→17:07)
[2019-11-15] MEDS: Glucerna Shake 120 ML LIQUID PO ×3 (07:43→17:07)
[2019-11-15 10:00] VITALS: PULSE 76; RESP 16; O2SAT 97
--- NOTE | 2019-11-15 12:30 | NURSING ---
Patient was given scheduled tylenol per order. Pt then requested more pain medication stating she was still in pain and wanted to lay down asking if we could help her. This nurse stated she could go to bed but her son called in yesterday and is requesting that she gets up out of bed and move around more often. The patient stated that she didn't care what her son said, and that she was in pain and wanted to go back to bed. This nurse stated that was fine and that she would be right back she was going to get her pain medication from the accudose. Upon retrieving medication patient's son called stating pt called him crying stating that she was told she was not allowed to go to bed. This nurse explained to her son that this nurse was retrieving pain medication for the patient and that she was not told that she could not lay down, only that her son had called yesterday requesting to staff that pt remains out of bed and moving a lot more. Patient was given pain medication and assisted to bed.
[2019-11-15 14:07] VITALS: BP 146/63; PULSE 75; RESP 18; TEMP 37.2
--- NOTE | 2019-11-15 14:25 | CASEMGMT ---
Social Work Son contacted SW upset reporting pt was out of bed too much, she was in pain and was currently being told she could not go to bed. Son stated pt is getting out of bed at 6:30 am, does not know exactly when she is getting therapy, or when pain medication is due. Provided active listening. Explained to son, will speak with nurse about pain medication timeframe, and adjusting to receive meds around therapy. Explained pt receives about 2 hours of therapy per day, depending on insurance, and she is recommended to rest between and after sessions. Son understood. Son stated pt does not know when she is getting therapy every day. Explained therapy comes in first in the morning and puts the times on the whiteboard at the nurse's station so staff is aware, and on the whiteboard in the patient's room so the pt is aware. Son appreciative. Nursing and therapy aware of above. Pt resting comfortably at this time. ALIYAH Tiwari [facility]
[2019-11-15 14:43] VITALS: PULSE 75
--- NOTE | 2019-11-15 15:52 | CASEMGMT ---
Social Work Insurance issued DC date 11/17. Called son to inform of DC date. Son requesting therapy call him with updated information and to ask specific questions for DC-left note with therapy to f/u. Son also requesting pt medications be sent to [facility]. Son to set up transportation home. Plan: DC home with spouse 11/17, [facility]-PT/OT/SN, no DME needs Alicia Ibarra, social work auditor internal Manisha Conklin, MEDIA STRATEGIST CHERRY GROWER
--- NOTE | 2019-11-15 16:02 | CASEMGMT ---
Social Work Reviewed and agreed with social work internal combustion engine assembler documentation on this date. Manisha Conklin, MANAGER ENGAGEMENT ACCOUNT INSTALLATION SPECIALIST
[2019-11-15 21:04] VITALS: BP 126/55; PULSE 66
[2019-11-15] MEDS: MELATONIN 3 MG TABLET PO (21:04)
[2019-11-16] MEDS: oxyCODONE 5 MG Tablet PO ×3 (04:38→20:46)
[2019-11-16] MEDS: Acetaminophen 500 MG Tablet 1000 MG PO ×4 (04:38→23:28)
[2019-11-16 04:39] VITALS: BP 139/55; PULSE 70
[2019-11-16] MEDS: Enoxaparin 40 MG/0.4 ML Syringe SC (04:39)
[2019-11-16] MEDS: Senna/Docusate Sodium 1 Tablet 2 TABLET PO ×2 (04:39→17:18)
[2019-11-16] MEDS: hydrALAZINE 25 MG Tablet PO ×3 (04:39→20:47)
[2019-11-16] MEDS: Labetalol 100 MG Tablet PO ×2 (04:39→17:18)
[2019-11-16] MEDS: amLODIPine 10 MG Tablet PO (04:39)
[2019-11-16] MEDS: Menthol/Lanolin/Calamine/Znox 113 GM Tube 1 APPLIC TOPICAL ×2 (04:44→20:50)
[2019-11-16] MEDS: Nystatin Powder 15gm Bottle 1 APPLIC TOPICAL ×2 (04:44→20:50)
[2019-11-16 06:16] LABS: Bedside Glucose 142 mg/dL (70-110)
[2019-11-16] MEDS: Hydrocortisone 10 MG Tablet 5 MG PO ×2 (08:40→17:18)
[2019-11-16] MEDS: Glucerna Shake 120 ML LIQUID PO ×3 (08:40→17:18)
[2019-11-16 13:55] VITALS: PULSE 75
[2019-11-16] MEDS: Baclofen 10 MG Tablet PO (13:57)
[2019-11-16] MEDS: 0.9% Saline Lock 10 ML Syringe IV (13:59)
--- NOTE | 2019-11-16 14:01 | NURSING ---
Addendum entered by Dian Mcelroy 11/16/19 17:21: Dr Avila updated on very strong urine odor and lots of sediment, cloudy. new order for UA C&S Original Note: israel with lots of white sediment pieces t/o tubing and bag. flushed w/30cc normal saline. pt tolerated well. urine straw cloudy yellow. no c/o of burning/pain. pt encouraged to drink water but also on fluid restriction.
[2019-11-16 14:11] VITALS: BP 140/50; PULSE 75; RESP 18; TEMP 37.1; O2SAT 94
[2019-11-16 18:10] LABS: Mucous, Urine 0 SEEN /hpf (<or=2+); Squamous Epithelial Cells - UA 0 SEEN /hpf (5-10)
[2019-11-16 18:11] LABS: Color, Urine Yellow (Yellow); Glucose, Dipstick Normal (Normal); Ketone-Dipstick Negative (Negative); Leukocyte Esterase-Dipstick 500 /ul (Negative); Nitrite-Dipstick Positive (Negative); Occult Blood-Urine 10 /ul (Negative); Protein-Dipstick 15 mg/dl (Negative); Urine Bilirubin Dipstick Negative (Negative); Urine Clarity Sl. Cloudy (Clear); Urine Urobilinogen Normal (Normal)
[2019-11-16 18:19] LABS: Red Blood Cells-Urine 0-5 SEEN /hpf (0-5); White Blood Cells 50-100 SEEN /hpf (0-5)
[2019-11-16 18:20] LABS: Bacteria 1+ /hpf (None Seen)
[2019-11-16] MEDS: Ciprofloxacin 250 MG Tablet PO (20:46)
[2019-11-16 20:47] VITALS: BP 131/49; PULSE 69
[2019-11-16] MEDS: MELATONIN 3 MG TABLET PO (20:48)
[2019-11-17] MEDS: Baclofen 10 MG Tablet PO (01:56)
[2019-11-17] MEDS: Acetaminophen 500 MG Tablet 1000 MG PO ×3 (05:46→21:53)
[2019-11-17 05:47] VITALS: BP 135/54; PULSE 70
[2019-11-17] MEDS: Senna/Docusate Sodium 1 Tablet 2 TABLET PO ×2 (05:47→16:59)
[2019-11-17] MEDS: Labetalol 100 MG Tablet PO ×2 (05:47→16:59)
[2019-11-17] MEDS: hydrALAZINE 25 MG Tablet PO ×3 (05:47→21:53)
[2019-11-17] MEDS: Ciprofloxacin 250 MG Tablet PO ×2 (05:47→17:00)
[2019-11-17] MEDS: amLODIPine 10 MG Tablet PO (05:48)
[2019-11-17] MEDS: Enoxaparin 40 MG/0.4 ML Syringe SC (05:48)
[2019-11-17] MEDS: Nystatin Powder 15gm Bottle 1 APPLIC TOPICAL ×2 (05:51→21:56)
[2019-11-17] MEDS: Menthol/Lanolin/Calamine/Znox 113 GM Tube 1 APPLIC TOPICAL ×2 (05:51→21:56)
[2019-11-17 06:25] LABS: Bedside Glucose 143 mg/dL (70-110)
[2019-11-17] MEDS: Glucerna Shake 120 ML LIQUID PO ×3 (08:08→17:52)
[2019-11-17] MEDS: oxyCODONE 5 MG Tablet PO ×4 (08:08→21:53)
[2019-11-17] MEDS: Hydrocortisone 10 MG Tablet 5 MG PO ×2 (08:10→16:59)
[2019-11-17 09:55] VITALS: PULSE 66; RESP 16; O2SAT 92
[2019-11-17 14:10] VITALS: BP 126/55; PULSE 75; RESP 16; TEMP 37.2; O2SAT 93
[2019-11-17 14:29] VITALS: PULSE 75
[2019-11-17 21:53] VITALS: BP 140/68; PULSE 80
[2019-11-17] MEDS: MELATONIN 3 MG TABLET PO (21:53)
[2019-11-18] MEDS: oxyCODONE 5 MG Tablet PO (02:52)
[2019-11-18 05:17] VITALS: BP 139/71; PULSE 73
[2019-11-18] MEDS: amLODIPine 10 MG Tablet PO (05:17)
[2019-11-18] MEDS: hydrALAZINE 25 MG Tablet PO (05:17)
[2019-11-18] MEDS: Labetalol 100 MG Tablet PO (05:17)
[2019-11-18] MEDS: Enoxaparin 40 MG/0.4 ML Syringe SC (05:17)
[2019-11-18] MEDS: Ciprofloxacin 250 MG Tablet PO (05:17)
[2019-11-18] MEDS: Acetaminophen 500 MG Tablet 1000 MG PO (05:17)
[2019-11-18] MEDS: Nystatin Powder 15gm Bottle 1 APPLIC TOPICAL (05:21)
[2019-11-18] MEDS: Menthol/Lanolin/Calamine/Znox 113 GM Tube 1 APPLIC TOPICAL (05:21)
[2019-11-18 06:15] LABS: Bedside Glucose 160 mg/dL (70-110)
[2019-11-18] MEDS: Hydrocortisone 10 MG Tablet 5 MG PO (07:49)
[2019-11-18 10:50] VITALS: BP 146/59; PULSE 68; RESP 20; TEMP 36.3; O2SAT 94
--- NOTE | 2019-11-18 15:13 | CASEMGMT ---
Social Work Reviewed and agreed with social work technology risk intern documentation on this date. Manisha Conklin, ENDING MACHINE OPERATOR OUTSIDE SALES CONSULTANT
--- NOTE | 2019-11-19 13:19 | CASEMGMT ---
Social Work Reviewed and agreed with social work internal control analyst documentation on this date. Manisha Conklin, HALL PORTER SCALE SHOOTER
== END 2019-11-18 11:15 | disposition home health service (06) | DRG 690 ==
PROVIDERS: Admitting Provider Family Medicine Geriatric Medicine; PCP Family Medicine; Referring Provider Family Medicine Geriatric Medicine; Visit Provider Family Medicine Geriatric Medicine
DX: N39.0 Urinary tract infection, site not specified (principal); E27.40 Unspecified adrenocortical insufficiency; Z68.42 Body mass index [BMI] 45.0-49.9, adult; B96.89 Other specified bacterial agents as the cause of diseases classified elsewhere; E11.9 Type 2 diabetes mellitus without complications; E78.5 Hyperlipidemia, unspecified; B35.4 Tinea corporis; I10 Essential (primary) hypertension; G47.33 Obstructive sleep apnea (adult) (pediatric); E66.01 Morbid (severe) obesity due to excess calories
CPT/HCPCS: 36415; 73502; 74018; 80048; 81001; 82962; 83930; 83935; 84300; 85025; 87077; 87086; 87088; 87186; 97032; 97110; 97116; 97162; 97166; 97530; 97535; 97802; A4216